=== PATIENT | female | born 1990 | race African-American/Black ===

== ENCOUNTER 2020-09-10 11:17 | Outpatient (REF) | payer MEDICARE, MEDICAID, SELFPAY ==
[2020-09-10 12:56] LABS: MANUAL DIFF FLAG NO
[2020-09-10 13:01] LABS: Basophils Percent Auto 0.4 % (0-2); Eosinophils Percent Auto 0.6 % (0-4); Hematocrit 42.1 % (37-47); Hemoglobin 13.4 g/dl (12.0-16.0); Imm Gran Abs Auto 0.01 X10*3/uL (0.00-0.03); Imm Gran Pct Auto 0.2 % (0.0-0.4); Lymphocytes Absolute Auto 2.1 X10*3/uL (1.2-4.9); Mean Corpuscular HGB Conc 31.8 g/dl (31.0-35.0); Mean Corpuscular Hemoglobin 29.8 pg (27.0-33.0); Mean Corpuscular Volume 93.8 fL (80-98); Mean Platelet Volume 9.8 fL (9.4-12.3); Monocytes Absolute Auto 0.4 X10*3/uL (0.1-1.2); Monocytes Percent Auto 6.9 % (2-11); Neutrophils Absolute Auto 2.6 X10*3/uL (2.0-8.3); Neutrophils Percent Auto 50.9 % (45-73); Platelet Count 369 X10*3/uL (160-400); Red Blood Count 4.49 X10*6/uL (4.20-5.50); Red Cell Distribution Width 13.9 % (11.0-16.0); White Blood Count 5.1 X10*3/uL (4.8-10.8)
== END 2020-09-10 11:18 | disposition home or self-care (01) ==
LOC: HO.LAB 11:17
PROVIDERS: PCP Family Medicine; Visit Provider Family Medicine
DX: E34.9 Endocrine disorder, unspecified (principal)
CPT/HCPCS: 36415; 85025

== ENCOUNTER 2020-11-24 15:58 | Inpatient (IN) | payer MEDICARE, MEDICAID, SELFPAY ==
[2020-11-24 16:31] VITALS: BMI 28.8
--- NOTE | 2020-11-24 16:38 | ED_ITS ---
HPI - Psych General Chief Complaint: Psychiatric Symptoms Stated Complaint: std Time Seen by Provider: 11/24/20 16:35 Source: patient Mode of arrival: ambulatory Limitations: no limitations History of Present Illness HPI Narrative: Patient history of bipolar disorder dropped up by his friend for been delusional and paranoid tangential in conversation believes someone is talking to him and everyone he knows, talking too fast in the ER denies any psychological issues. Denies any suicidal or homicidal ideation Related Data Allergies Allergy/AdvReac Type Severity Reaction Status Date / Time iodine [IODINE] Allergy Unknown ITCHING Unverified 04/03/20 19:43 shellfish derived Allergy Unknown HIVES Unverified 04/03/20 19:43 [SHELLFISH DERIVED] tree nut [TREE NUT] Allergy Unknown DIFFICULTY Unverified 04/03/20 19:43 BREATHING DAIRY PRODUCTS Allergy Unknown STOMACH Uncoded 04/03/20 19:43 UPSET Review of Systems Review of Systems: Constitutional : No Fever, No Chills ENT/Mouth : No Ear Pain, No Nasal Congestion, No sore throat Eyes: No Eye Pain, No Swelling, No Redness Cardiovascular : No Chest Pain, No SOB Respiratory : No Cough, No Sputum, No Dyspnea Gastrointestinal : No Nausea, No Vomiting, No Diarrhea, No Hematochezia, No Me kenney Genitourinary : No Dysuria, No Urinary Frequency, No Hematuria Musculoskeletal : No Myalgias Skin : No Skin Lesions, No rash Neuro : No Weakness, No Numbness, No Paresthesias, No Dizziness, No Headache Psych : positive Anxiety, - Depression, positive SI/HI Heme/Lymph: No Lymphadenopathy Endocrine : No Polyuria, No Polydipsia PMFSH Social History Social History Alcohol intake: unknown Smoking Status: Unknown if ever smoked Use of substances other than those prescribed or required for medical reasons: Unknown Advance Directives: No Advance Directives Information Provided: No Physical Exam Vital Signs: Vital Signs: Last Vital Signs Temp 97.0 F 11/25/20 00:31 Pulse 78 11/25/20 00:31 Resp 18 11/25/20 00:31 BP 123/79 11/25/20 00:31 Pulse Ox 97 11/25/20 00:31 Body Mass Index 28.8 Appearance: Alert. Oriented X3. No acute distress. Eyes: PERRLA, No Nystagmus ENT: Pharynx normal. Oral Mucosa moist Neck: Normal inspection. Neck supple. CVS: Normal heart rate and rhythm. Pulses normal. Respiratory: No respiratory distress. Equal air entry bilateral, no wheezing/rales/rhonchi Abdomen: Soft and nontender. Bowel sounds are present, no mass palpable, no CVA tenderness Skin: Skin warm and dry. Normal skin color. Normal skin turgor. Extremities: No lower extremity edema. No calf tenderness Neuro: Oriented X 3. No motor deficit. No sensory deficit.No cerebellar signs , cranial nerves II-XII intact psych: Anxious+ denies any suicidal ideation, delusional+ paranoid+ denies hallucination at this time MDM - Psych MDM Narrative Medical decision making narrative: Patient with bipolar disorder will be seen by therapist disposition after evaluation. Patient medically cleared Lab Data Attestation: I reviewed the patient's lab results. Result diagrams: 11/24/20 16:51 11/24/20 16:51 Labs: Lab Results 11/24/20 11/24/20 11/24/20 Range/Units 16:40 16:40 16:51 WBC 5.6 (4.8-10.8) X10*3/uL RBC 4.82 (4.20-5.50) X10*6/uL Hgb 14.8 (12.0-16.0) g/dl Hct 45.6 (37-47) % MCV 94.6 (80-98) fL MCH 30.7 (27.0-33.0) pg MCHC 32.5 (31.0-35.0) g/dl RDW 12.9 (11.0-16.0) % Plt Count 324 (160-400) X10*3/uL MPV 9.6 (9.4-12.3) fL Immature Gran % (Auto) 0.2 (0.0-0.4) % Neut % (Auto) 49.5 (45-73) % Lymph % (Auto) 42.3 H (20-40) % [place] % (Auto) 7.0 (2-11) % Eos % (Auto) 0.5 (0-4) % Baso % (Auto) 0.5 (0-2) % Lymph # (Auto) 2.4 (1.2-4.9) X10*3/uL [place] # (Auto) 0.4 (0.1-1.2) X10*3/uL Eos # (Auto) 0.0 (0.0-0.4) X10*3/uL Baso # (Auto) 0.0 (0.0-0.2) X10*3/uL Abs Immat Gran (auto) 0.01 (0.00-0.03) X10*3/uL Absolute Neuts (auto) 2.8 (2.0-8.3) X10*3/uL Absolute Nucleated RBC 0.000 (0.0-0.012) X10*3/uL Nucleated RBC % (auto) 0.0 (0.0-0.2) /100WBC Sodium (135-145) mmol/L Potassium (3.3-5.1) mmol/L Chloride (96-108) mmol/L Carbon Dioxide (22-29) mmol/L Anion Gap (12-20) BUN (9-16) mg/dL Creatinine (0.5-1.4) mg/dL Estim Creat Clear Calc Estimated GFR Random Glucose (60-115) mg/dL Calcium (8.4-10.2) mg/dL Total Bilirubin (0.0-1.0) mg/dL AST (5-31) U/L ALT (0-31) U/L Alkaline Phosphatase (39-117) U/L Total Protein (6.5-8.0) g/dL Albumin (3.5-5.0) g/dL Urine Test NEGATIVE (NEGATIVE) Urine Opiates Screen Not Detected (Not Detect) Ur Barbiturates Screen Not Detected (Not Detect) Ur Phencyclidine Scrn Not Detected (Not Detect) Ur Amphetamines Screen Not Detected (Not Detect) U Benzodiazepines Scrn Not Detected (Not Detect) Urine Cocaine Screen Not Detected (Not Detect) U Marijuana (THC) Screen Not Detected (Not Detect) 11/24/20 Range/Units 16:51 WBC (4.8-10.8) X10*3/uL RBC (4.20-5.50) X10*6/uL Hgb (12.0-16.0) g/dl Hct (37-47) % MCV (80-98) fL MCH (27.0-33.0) pg MCHC (31.0-35.0) g/dl RDW (11.0-16.0) % Plt Count (160-400) X10*3/uL MPV (9.4-12.3) fL Immature Gran % (Auto) (0.0-0.4) % Neut % (Auto) (45-73) % Lymph % (Auto) (20-40) % [place] % (Auto) (2-11) % Eos % (Auto) (0-4) % Baso % (Auto) (0-2) % Lymph # (Auto) (1.2-4.9) X10*3/uL [place] # (Auto) (0.1-1.2) X10*3/uL Eos # (Auto) (0.0-0.4) X10*3/uL Baso # (Auto) (0.0-0.2) X10*3/uL Abs Immat Gran (auto) (0.00-0.03) X10*3/uL Absolute Neuts (auto) (2.0-8.3) X10*3/uL Absolute Nucleated RBC (0.0-0.012) X10*3/uL Nucleated RBC % (auto) (0.0-0.2) /100WBC Sodium 138 (135-145) mmol/L Potassium 5.0 (3.3-5.1) mmol/L Chloride 101 (96-108) mmol/L Carbon Dioxide 27 (22-29) mmol/L Anion Gap 15 (12-20) BUN 12 (9-16) mg/dL Creatinine 1.28 (0.5-1.4) mg/dL Estim Creat Clear Calc 74.5 Estimated GFR 49 Random Glucose 103 (60-115) mg/dL Calcium 10.1 (8.4-10.2) mg/dL Total Bilirubin 0.3 (0.0-1.0) mg/dL AST 23 (5-31) U/L ALT 20 (0-31) U/L Alkaline Phosphatase 69 (39-117) U/L Total Protein 7.9 (6.5-8.0) g/dL Albumin 4.7 (3.5-5.0) g/dL Urine Test (NEGATIVE) Urine Opiates Screen (Not Detect) Ur Barbiturates Screen (Not Detect) Ur Phencyclidine Scrn (Not Detect) Ur Amphetamines Screen (Not Detect) U Benzodiazepines Scrn (Not Detect) Urine Cocaine Screen (Not Detect) U Marijuana (THC) Screen (Not Detect)
[2020-11-24 16:53] LABS: UPreg QC Valid YES; Urine Pregnancy NEGATIVE (NEGATIVE)
[2020-11-24 17:07] LABS: Basophils Percent Auto 0.5 % (0-2); Eosinophils Percent Auto 0.5 % (0-4); Hematocrit 45.6 % (37-47); Hemoglobin 14.8 g/dl (12.0-16.0); Imm Gran Abs Auto 0.01 X10*3/uL (0.00-0.03); Imm Gran Pct Auto 0.2 % (0.0-0.4); Lymphocytes Absolute Auto 2.4 X10*3/uL (1.2-4.9); Lymphocytes Percent Auto 42.3 % (20-40); MANUAL DIFF FLAG NO; Mean Corpuscular HGB Conc 32.5 g/dl (31.0-35.0); Mean Corpuscular Hemoglobin 30.7 pg (27.0-33.0); Mean Corpuscular Volume 94.6 fL (80-98); Mean Platelet Volume 9.6 fL (9.4-12.3); Monocytes Absolute Auto 0.4 X10*3/uL (0.1-1.2); Neutrophils Absolute Auto 2.8 X10*3/uL (2.0-8.3); Neutrophils Percent Auto 49.5 % (45-73); Platelet Count 324 X10*3/uL (160-400); Red Blood Count 4.82 X10*6/uL (4.20-5.50); Red Cell Distribution Width 12.9 % (11.0-16.0); White Blood Count 5.6 X10*3/uL (4.8-10.8)
[2020-11-24 17:08] LABS: Amphetamine Screen Urine Not Detected (Not Detect); Barbiturates, Urine Not Detected (Not Detect); Benzodiazepines Screen Urine Not Detected (Not Detect); Cannabinoid Screen Urine Not Detected (Not Detect); Cocaine Screen Urine Not Detected (Not Detect); Opiate Screen Urine Not Detected (Not Detect); Phencyclidine Screen Urine Not Detected (Not Detect)
[2020-11-24 17:09] VITALS: BP 146/100; PULSE 90; RESP 18; TEMP 36.6; O2SAT 97
[2020-11-24 17:37] LABS: Alanine Aminotransferase 20 U/L (0-31); Albumin Level 4.7 g/dL (3.5-5.0); Alkaline Phosphatase 69 U/L (39-117); Anion Gap 15 (12-20); Aspartate Amino Transferase 23 U/L (5-31); Bilirubin Total 0.3 mg/dL (0.0-1.0); Blood Urea Nitrogen 12 mg/dL (9-16); Calcium 10.1 mg/dL (8.4-10.2); Carbon Dioxide 27 mmol/L (22-29); Chloride 101 mmol/L (96-108); Creatinine Clr Calc Pharmacy 74.5; Estimated Glomerular Filt Rate 49; Glucose Random 103 mg/dL (60-115); Sodium 138 mmol/L (135-145); Total Protein 7.9 g/dL (6.5-8.0)
--- NOTE | 2020-11-24 18:42 | PC.NURSE ---
Per N it will be several hours before a clinician will be out to see PT.
--- NOTE | 2020-11-24 19:05 | PC.NURSE ---
Report received. PT is using the shower. Calm and cooperative, but very talkative. PT is waiting to be seen by N.
--- NOTE | 2020-11-24 22:28 | PC.NURSE ---
PT is agitated and upset, continues to ask to go home because she has work at midnight. PT exhibiting hyperverbal speech (flight of ideas), tangential thought, and paranoid behavior (asking staff to pull up their masks, which are wearing masks properly, and put on gloves). This nurse explained to the PT that we are waiting for N to arrive for an evaluation. PT called her parents to tell them to come pick her up. Both mother and father then called the ED pod separately and spoke with this nurse. Both parents expressed concern that the PT has not been taking her meds and is not acting like her normal self.
--- NOTE | 2020-11-25 00:26 | PC.NURSE ---
PT contacts: Mother - Yamile Julius - [phone] Father - Hong Julius - [phone]
[2020-11-25 00:31] VITALS: BP 123/79; PULSE 78; RESP 18; TEMP 36.1; O2SAT 97
--- NOTE | 2020-11-25 01:50 | PC.NURSE ---
PT is sitting across from the nurse's station self dialoguing for the past two hours. PT cycling through emotions, laughing with self one moment and then yelling and upset with staff moments later. PT has not been aggressive or threatening to staff. Awaiting evaluation with [facility].
--- NOTE | 2020-11-25 06:52 | PC.NURSE ---
received report from overnight nurse, patient remains asleep at present with even unlabored breaths appears in no distress
--- NOTE | 2020-11-25 10:00 | PC.NURSE ---
Care team at bedside for eval.
--- NOTE | 2020-11-25 11:04 | PC.NURSE ---
spoke to clients father today phone #[phone], mothers number (t/w did not speak to) [phone]
--- NOTE | 2020-11-25 12:40 | PC.NURSE ---
PT asking how long he can take a shower for stating that last night he took a shower for 2-3 hours and then was kept here overnight and has now lost his job. PT states that due to him losing his job we are all now under surveillance and being watched. PT then talking about running milk over his body while he showers because clean living equals clean life.
--- NOTE | 2020-11-25 13:56 | PC.NURSE ---
PT appears to be responding internally, having a conversation while alone in his room.
[2020-11-25 17:00] LABS: COVID-19 Test Negative (Negative); IDNOW Serial# 9DD0AD1C
--- NOTE | 2020-11-25 17:34 | MHC.CARE ---
Pt evaluated by [facility] with plan for inpt psychiatric placement. Pt has been accepted for admission to . Admitting doctor: Brigette Room: 514-1 Transfer to unit will occur this evening.
[2020-11-25 18:00] VITALS: RESP 18
--- NOTE | 2020-11-25 19:03 | PC.NURSE ---
Report received. PT talking to father on the phone. Agitated speech but PT is still calm and coopertive. PT is inpatient bed search.
--- NOTE | 2020-11-25 21:06 | PC.ADMIT ---
Pt is a 30 year old transgender male (female to male) that hoes by he/him pronouns. Pt was brought into [facility] [place] because of being disorganized and manic. Has been off medication for 6 months and states that I just want to be holistic, my transitioning meds I don't want it to be interfered with...It's not like I'm opposed to taking medications I just want to get the perfect one and then go so that I can help my friend out...I can go to [facility] too, those are my goals. He is very tangential and disorganized pressured speech. Presents as manic, on 1:1 meeting it was difficult to get pt stay on track -loose associations. T/W asked pt if experiencing AH and did not respond because he could not focus on the question. Per eval, he endorsed AH and has been paranoid due to putting himself in danger in the community. Currently, not on any medications. Diagnosis at refferal: Bipolar disorder, manic, severe, with psychotic features. Tox screen negative. COVID negative. Section 12B. Medications being ordered and obtained by Sanjuana Ha NP. Placed on 15 minute checks.
[2020-11-25] MEDS: traZODone HCL 50 MG TABLET PO (23:47)
[2020-11-25] MEDS: LORazepam 1 MG TABLET PO (23:47)
[2020-11-25] MEDS: diphenhydrAMINE HCL 25 MG TABLET 50 MG PO (23:47)
[2020-11-26 09:17] LABS: Cholesterol 144 mg/dL; HDL Cholesterol 33 mg/dL; LDL Cholesterol Calculated 103 mg/dl; Triglycerides 44 mg/dL
[2020-11-26 09:20] LABS: Estimated Average Glucose 105 mg/dL; Hemoglobin A1c % 5.3 %
[2020-11-26 09:38] LABS: Thyroid Stimulating Hormone 1.27 uIU/mL (0.32-4.0)
[2020-11-26 09:55] LABS: Folate 11.7 ng/mL (> or = 4.0); Vitamin B12 533 pg/mL (200-900)
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
[2020-11-26] MEDS: Acetaminophen 325 MG TABLET 650 MG PO (13:27)
[2020-11-27] MEDS: LORazepam 1 MG TABLET PO (00:04)
[2020-11-27] MEDS: diphenhydrAMINE HCL 25 MG TABLET 50 MG PO (00:04)
[2020-11-27] MEDS: traZODone HCL 50 MG TABLET PO (01:07)
[2020-11-27 07:00] VITALS: BMI 31.1
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
[2020-11-27 09:54] VITALS: BP 97/54; PULSE 57; RESP 14; TEMP 36.3; O2SAT 98
[2020-11-27] MEDS: Acetaminophen 325 MG TABLET 650 MG PO (10:09)
[2020-11-27 18:00] VITALS: BP 128/69; PULSE 93; RESP 18; TEMP 36.5
[2020-11-28] MEDS: traZODone HCL 50 MG TABLET PO ×2 (03:00→23:04)
[2020-11-28] MEDS: diphenhydrAMINE HCL 25 MG TABLET 50 MG PO ×2 (03:00→23:03)
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
[2020-11-28 12:11] VITALS: BP 127/74; PULSE 72; RESP 16; TEMP 37.2; O2SAT 97
[2020-11-28] MEDS: ARIPiprazole 5 MG TABLET PO (16:58)
[2020-11-29 06:00] VITALS: BP 133/59; PULSE 71; RESP 16; TEMP 36.3; O2SAT 97
[2020-11-29] MEDS: ARIPiprazole 10 MG TABLET PO (10:54)
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
[2020-11-29 18:24] VITALS: BP 134/79; PULSE 97; RESP 16; TEMP 36.4; O2SAT 97
[2020-11-29] MEDS: Acetaminophen 325 MG TABLET 650 MG PO (18:36)
[2020-11-29] MEDS: LORazepam 1 MG TABLET PO ×2 (19:38→22:54)
[2020-11-29] MEDS: traZODone HCL 50 MG TABLET PO (22:54)
[2020-11-29] MEDS: diphenhydrAMINE HCL 25 MG TABLET 50 MG PO (22:54)
[2020-11-30] MEDS: ARIPiprazole 10 MG TABLET PO (09:49)
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
[2020-11-30 17:32] VITALS: BP 142/74; PULSE 88; RESP 14; TEMP 36.5; O2SAT 98
[2020-11-30] MEDS: LORazepam 1 MG TABLET PO (22:30)
[2020-11-30] MEDS: diphenhydrAMINE HCL 25 MG TABLET 50 MG PO (22:30)
[2020-12-01] MEDS: ARIPiprazole 10 MG TABLET PO (08:58)
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
[2020-12-01] MEDS: LORazepam 1 MG TABLET PO (13:20)
[2020-12-01] MEDS: Magnesium Hydrox/Alum Hydrox 30 ML ORAL.SUSP PO (13:20)
[2020-12-01 20:10] VITALS: BP 139/63; PULSE 115; RESP 18; O2SAT 97
[2020-12-01] MEDS: diphenhydrAMINE HCL 25 MG TABLET 50 MG PO (20:31)
[2020-12-01] MEDS: traZODone HCL 50 MG TABLET PO (20:32)
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
[2020-12-02] MEDS: ARIPiprazole 10 MG TABLET PO (09:25)
[2020-12-02 18:00] VITALS: BP 129/68; PULSE 81; RESP 18; TEMP 37; O2SAT 98
[2020-12-03] MEDS: LORazepam 1 MG TABLET PO (00:23)
[2020-12-03] MEDS: diphenhydrAMINE HCL 25 MG TABLET 50 MG PO ×2 (00:24→22:07)
[2020-12-03] MEDS: traZODone HCL 50 MG TABLET PO ×2 (00:24→22:07)
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
[2020-12-03] MEDS: ARIPiprazole 20 MG TABLET PO (09:32)
[2020-12-03] MEDS: Magnesium Hydrox/Alum Hydrox 30 ML ORAL.SUSP PO (09:51)
[2020-12-03 18:00] VITALS: BP 118/65; PULSE 76; RESP 18; TEMP 36.6; O2SAT 97
[2020-12-04] MEDS: ARIPiprazole 20 MG TABLET PO (09:14)
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
[2020-12-04 14:00] VITALS: BMI 31.6
[2020-12-04 18:00] VITALS: BP 134/74; PULSE 98; TEMP 36.7
[2020-12-04] MEDS: traZODone HCL 50 MG TABLET PO (21:45)
[2020-12-04] MEDS: diphenhydrAMINE HCL 25 MG TABLET 50 MG PO (21:45)
[2020-12-05] MEDS: traZODone HCL 50 MG TABLET PO ×2 (02:13→22:26)
[2020-12-05 06:00] VITALS: BP 94/50; PULSE 72; RESP 18; TEMP 36.4; O2SAT 97
[2020-12-05] MEDS: ARIPiprazole 20 MG TABLET PO (09:09)
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
[2020-12-05 18:00] VITALS: RESP 18
[2020-12-05] MEDS: diphenhydrAMINE HCL 25 MG TABLET 50 MG PO (22:26)
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
[2020-12-06] MEDS: ARIPiprazole 20 MG TABLET PO (08:55)
[2020-12-06 20:35] VITALS: BP 121/70; PULSE 91; TEMP 36.7; O2SAT 97
[2020-12-06] MEDS: traZODone HCL 50 MG TABLET PO (21:26)
[2020-12-07] MEDS: ARIPiprazole 20 MG TABLET PO (09:06)
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
[2020-12-07 18:00] VITALS: BP 135/78; PULSE 93; TEMP 36.7; O2SAT 97
[2020-12-07] MEDS: diphenhydrAMINE HCL 25 MG TABLET 50 MG PO (23:30)
[2020-12-07] MEDS: traZODone HCL 50 MG TABLET PO (23:31)
[2020-12-08] MEDS: traZODone HCL 50 MG TABLET PO ×2 (01:30→22:49)
[2020-12-08] MEDS: ARIPiprazole 20 MG TABLET PO (09:05)
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
[2020-12-08 19:25] VITALS: BP 127/67; PULSE 102; TEMP 36.2
[2020-12-08] MEDS: diphenhydrAMINE HCL 25 MG TABLET 50 MG PO (22:49)
[2020-12-09 06:00] VITALS: BP 117/53; PULSE 70; RESP 18; TEMP 36.7; O2SAT 100
[2020-12-09] MEDS: ARIPiprazole 20 MG TABLET PO (08:44)
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
[2020-12-09] MEDS: diphenhydrAMINE HCL 25 MG TABLET 50 MG PO (20:33)
[2020-12-09] MEDS: traZODone HCL 50 MG TABLET PO (20:34)
[2020-12-10 07:01] VITALS: BP 121/78; PULSE 67; RESP 14; TEMP 36.1; O2SAT 97
[2020-12-10] MEDS: ARIPiprazole 20 MG TABLET PO (09:34)
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
[2020-12-10 18:00] VITALS: BP 130/76; PULSE 101; TEMP 36.4
[2020-12-10] MEDS: diphenhydrAMINE HCL 25 MG TABLET 50 MG PO (20:59)
[2020-12-10] MEDS: traZODone HCL 50 MG TABLET PO (20:59)
[2020-12-11] MEDS: traZODone HCL 50 MG TABLET PO (01:45)
[2020-12-11 06:00] VITALS: BP 108/57; PULSE 63; RESP 16; TEMP 36.2; O2SAT 99
[2020-12-11] MEDS: ARIPiprazole 20 MG TABLET PO (08:46)
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
== END 2020-12-11 13:46 | disposition home or self-care (01) | DRG 885 ==
LOC: HO.ED 16:30 → HO.PM5 11-25 19:47
PROVIDERS: Physician Assistant; Admitting Provider Social Worker; Emergency Provider Internal Medicine; PCP Family Medicine; Visit Provider Psychiatry & Neurology Psychiatry
DX: F31.12 Bipolar disorder, current episode manic without psychotic features, moderate (principal); F43.12 Post-traumatic stress disorder, chronic; F17.210 Nicotine dependence, cigarettes, uncomplicated; F64.0 Transsexualism; Z71.6 Tobacco abuse counseling; Z20.822 Contact with and (suspected) exposure to COVID-19; Z79.899 Other long term (current) drug therapy
CPT/HCPCS: 36415; 80053; 80061; 80307; 81025; 82607; 82746; 83036; 84443; 85025; 87635; 99285; J0401; Q0163

== ENCOUNTER 2021-06-16 12:37 | Outpatient (REF) | payer MEDICARE, SELFPAY ==
[2021-06-16 13:37] LABS: Hematocrit 43.9 % (37.0-47.0); Hemoglobin 14.4 g/dl (12.0-16.0); Mean Corpuscular HGB Conc 32.8 g/dl (31.0-35.0); Mean Corpuscular Hemoglobin 31.6 pg (27.0-33.0); Mean Corpuscular Volume 96.3 fL (80.0-98.0); Mean Platelet Volume 9.7 fL (9.4-12.3); Platelet Count 319 X10*3/uL (160-400); Red Blood Count 4.56 X10*6/uL (4.20-5.50); Red Cell Distribution Width 13.5 % (11.0-16.0); White Blood Count 6.1 X10*3/uL (4.8-10.8)
[2021-06-16 16:03] LABS: CT PCR NOT DETECTED (Not Detect.); NG PCR NOT DETECTED (Not Detect.)
[2021-06-17 08:24] LABS: HIV AB/AG Nonreactive (Nonreactive); HIV Num 1 0.06 S/CO (0.00-0.99); Hepatitis B Surface Antigen Negative (Negative)
[2021-06-17 08:33] LABS: ~HepC Num1 0.06 S/CO (0.00-0.79); ~Hepatitis C Antibody Nonreactive (Nonreactive)
[2021-06-17 08:34] LABS: Syphilis Screen Nonreactive (Nonreactive)
[2021-06-20 08:46] LABS: Testosterone, Total 816 ng/dL (2-45)
== END 2021-06-16 12:38 | disposition home or self-care (01) ==
LOC: HO.LAB 12:37
PROVIDERS: PCP Family Medicine; Visit Provider Family Medicine
DX: Z11.4 Encounter for screening for human immunodeficiency virus [HIV] (principal); E34.9 Endocrine disorder, unspecified; Z20.2 Contact with and (suspected) exposure to infections with a predominantly sexual mode of transmission
CPT/HCPCS: 84403; 85027; 86780; 86803; 87340; 87389; 87491; 87591

== ENCOUNTER 2021-06-30 04:22 | Emergency (ER) | payer MEDICARE, SELFPAY ==
[2021-06-30 04:27] VITALS: BP 120/75; PULSE 72; RESP 20; TEMP 36.8; O2SAT 96; BMI 33.4
--- NOTE | 2021-06-30 04:54 | PC.NURSE ---
PEÑA and Covid obtained and sent.
[2021-06-30 04:59] LABS: Appearance Urine CLEAR; Color Urine YELLOW; Glucose Urine UA NEG (NEG); Leukocyte Esterase Urine 2+ (NEG); Nitrite Urine NEG (NEG); Specific Gravity - Urine 1.025 (1.005-1.025); UACC Culture Trigger YES; Urine Blood TRACE (NEG); Urine Ketones NEG (NEG); Urine Protein NEG (NEG-TRACE)
[2021-06-30 05:01] LABS: UPreg QC Valid YES; Urine Pregnancy NEGATIVE (NEGATIVE)
[2021-06-30 05:06] LABS: Bacteria Urine 2+ /LPF; Calcium Phosphate Crystals Ur 1+ /LPF; RBC Urine 0-2 /HPF (0); Squamous Epithelial Cell Urine 3+ /LPF; UACC CULT YES
[2021-06-30 05:12] LABS: COVID-19 Test Negative (Negative); IDNOW Serial# 9DD0AD1C
[2021-06-30] MEDS: cephALEXin 500 MG CAPSULE PO (05:44)
--- NOTE | 2021-06-30 05:44 | PC.NURSE ---
MD at bedside discussing results and plan for DC.
--- NOTE | 2021-06-30 05:45 | ED_ITS ---
HPI - General Adult General Chief complaint: General Medical Stated complaint: COVID test requested, lower back pain Time Seen by Provider: 06/30/21 05:34 Source: patient Mode of arrival: ambulatory History of Present Illness HPI narrative: 30-year-old female without significant past medical history presents with lower back soreness, some feelings of fatigue and is requesting COVID test. Otherwise she denies any fever, chills, nausea, vomiting, diarrhea, but has been having urinary frequency. Related Data Previous Rx's Medication Instructions Recorded aripiprazole 20 mg tablet (Abilify) 20 mg PO DAILY 10 Days #10 tab 12/11/20 aripiprazole 400 mg intramuscular 400 mg IM Q28D 28 Days #1 ea 12/11/20 suspension,extended release (Abilify Maintena) diphenhydramine HCl 25 mg tablet 50 mg PO Q8H PRN 30 Days #30 tab 12/11/20 (Allergy Relief (diphenhydramine)) testosterone cypionate 200 mg/mL 60 mg (0.3 mL) SUBCUT QWEEK 7 Days 12/11/20 intramuscular oil #0.3 ml trazodone 50 mg tablet 50 mg PO BEDTIME PRN 30 Days #30 12/11/20 tab cephalexin 500 mg capsule 500 mg PO Q12H 5 Days #10 cap 06/30/21 Allergies Allergy/AdvReac Type Severity Reaction Status Date / Time iodine [IODINE] Allergy Unknown ITCHING Unverified 06/30/21 04:52 shellfish derived Allergy Unknown HIVES Unverified 06/30/21 04:52 [SHELLFISH DERIVED] tree nut [TREE NUT] Allergy Unknown DIFFICULTY Unverified 06/30/21 04:52 BREATHING DAIRY PRODUCTS Allergy Unknown STOMACH Uncoded 06/30/21 04:52 UPSET Review of Systems Review of Systems: Pertinent positives and negatives as stated in HPI 10 point review of systems is otherwise negative. [facility] Past Medical History Source: nursing notes reviewed Medical History Bipolar disorder Chronic post-traumatic stress disorder (PTSD) Social History Social History Household Members: Family and None Housing: Apartment Do you presently have visiting nurse or other home services: No Alcohol intake: unknown Cigarettes Per Day: 4 Second Hand Smoke Exposure: Yes Substance Use Type: Marijuana service: No Physical Exam Vital Signs: Vital Signs: Last Vital Signs Temp 98.3 F 06/30/21 04:27 Pulse 72 06/30/21 04:27 Resp 20 06/30/21 04:27 BP 120/75 06/30/21 04:27 Pulse Ox 96 06/30/21 04:27 BMI result Body Mass Index 33.4 VITAL SIGNS: Reviewed. GENERAL: Well developed, well nourished, in no acute distress. HEAD: Normocephalic/atraumatic EYES: PERRLA, EOMI OROPHARYNX: no oral lesions noted, posterior pharynx clear LUNGS: Normal breath sounds. No adventitious sounds or accessory muscle use. SpO2<96> CARDIOVASCULAR: Regular rate and rhythm without noted murmurs ABDOMEN: Soft, non-tender, non-distended with bowel sounds , no CVA tenderness NEUROLOGIC: Alert and oriented x 4. Course Course Course Narrative: 30-year-old female with history and clinical presentation consistent with suspected UTI, and on review of all investigations there are no acute findings other than UTI being positive. Patient received additional antibiotics here in the emergency room and was discharged with remaining course. Medical Decision Making Lab Data Labs: Lab Results 06/30/21 06/30/21 06/30/21 Range/Units 04:52 04:52 04:52 Urine Color YELLOW Urine Appearance CLEAR Urine pH 6.0 (5.0-8.0) Ur Specific [place] 1.025 (1.005-1.025) Urine Protein NEG (NEG-TRACE) MG/DL Urine Glucose (UA) NEG (NEG) MG/DL Urine Ketones NEG (NEG) MG/DL Urine Blood TRACE (NEG) Urine Nitrite NEG (NEG) Ur Leukocyte Esterase 2+ H (NEG) Urine RBC 0-2 (0) /HPF Urine WBC 5-9 H (0-4) /HPF Ur Squamous Epith Cells 3+ /LPF Calcium Phosphate Cryst 1+ /LPF Urine Bacteria 2+ /LPF Urine Test NEGATIVE (NEGATIVE) COVID-19 (TRUDY) Negative (Negative) COVID-19 Clin Com See Note Discharge Plan Discharge Clinical Impression: UTI (urinary tract infection) Patient Disposition: Home, Self-Care Instructions: Urinary Tract Infection in Women (ED) Additional Instructions: follow-up with your primary care provider next 2-3 days. Prescriptions: New cephalexin 500 mg capsule 500 mg PO Q12H 5 Days Qty: 10 RF: 0 No Action diphenhydramine HCl [Allergy Relief(diphenhydramin)] 25 mg Tablet 50 mg PO Q8H PRN (Reason: anxiety) 30 Days Qty: 30 RF: 0 aripiprazole [Abilify] 20 mg Tablet 20 mg PO DAILY 10 Days Qty: 10 RF: 0 trazodone 50 mg Tablet 50 mg PO BEDTIME PRN (Reason: Insomnia) 30 Days Qty: 30 RF: 0 Abilify Maintena 400 mg Suspension,Extended Rel Recon 400 mg IM Q28D 28 Days Qty: 1 RF: 0 testosterone cypionate 200 mg/mL oil 60 mg subcut QWEEK 7 Days Qty: 0.3 RF: 2
== END 2021-06-30 06:01 | disposition home or self-care (01) ==
LOC: HO.ED 05:57
PROVIDERS: Emergency Provider Student in an Organized Health Care Education/Training Program
DX: N39.0 Urinary tract infection, site not specified (principal); Z20.822 Contact with and (suspected) exposure to COVID-19; M54.50 Low back pain, unspecified
CPT/HCPCS: 36415; 81001; 81025; 87086; 87635; 99283

== ENCOUNTER 2022-05-12 07:52 | Emergency (ER) | payer MEDICARE, SELFPAY ==
[2022-05-12 08:43] VITALS: BP 141/75; PULSE 64; RESP 18; TEMP 36.6; O2SAT 100; BMI 35.5
[2022-05-12 09:06] LABS: MANUAL DIFF FLAG NO
[2022-05-12 09:11] LABS: Basophils Percent Auto 0.7 % (0-2); Eosinophils Absolute Auto 0.1 X10*3/uL (0.0-0.4); Eosinophils Percent Auto 1.4 % (0-4); Hematocrit 45.5 % (37.0-47.0); Hemoglobin 14.7 g/dl (12.0-16.0); Lymphocytes Absolute Auto 1.8 X10*3/uL (1.2-4.9); Mean Corpuscular HGB Conc 32.3 g/dl (31.0-35.0); Mean Corpuscular Hemoglobin 30.7 pg (27.0-33.0); Mean Platelet Volume 9.5 fL (9.4-12.3); Monocytes Absolute Auto 0.4 X10*3/uL (0.1-1.2); Monocytes Percent Auto 8.4 % (2-11); Neutrophils Absolute Auto 2.1 x10*3/uL (2.0-8.3); Neutrophils Percent Auto 48.5 % (45-73); Platelet Count 286 X10*3/uL (160-400); Red Blood Count 4.79 X10*6/uL (4.20-5.50); Red Cell Distribution Width 12.8 % (11.0-16.0); White Blood Count 4.3 X10*3/uL (4.8-10.8)
[2022-05-12 09:22] LABS: Appearance Urine Clear; Color Urine Yellow; Glucose Urine UA Negative (Negative); Leukocyte Esterase Urine Small (1+) (Negative); Nitrite Urine Negative (Negative); Specific Gravity - Urine >= 1.030 (1.005-1.025); UMIC TRIGGER UACC YES; Urine Blood Negative (Negative); Urine Ketones 40 mg/dL (Negative); Urine Protein Trace mg/dL (Neg-Trace)
[2022-05-12 09:23] LABS: UPreg QC Valid YES; Urine Pregnancy NEGATIVE (NEGATIVE)
[2022-05-12 09:26] LABS: Alanine Aminotransferase 30 U/L (0-31); Albumin Level 4.7 g/dL (3.5-5.0); Alkaline Phosphatase 77 U/L (39-117); Anion Gap 19 (12-20); Aspartate Amino Transferase 47 U/L (5-31); Bilirubin Direct 0.3 mg/dL (0.0-0.5); Bilirubin Total 0.8 mg/dL (0.0-1.0); Blood Urea Nitrogen 14 mg/dL (9-16); Calcium 9.5 mg/dL (8.4-10.2); Carbon Dioxide 20 mmol/L (22-29); Chloride 104 mmol/L (96-108); Creatinine Clr Calc Pharmacy 84.5; Estimated Glomerular Filt Rate 55; Glucose Random 77 mg/dL (60-115); Lipase 10 U/L (8-78); Potassium 4.5 mmol/L (3.3-5.1); Sodium 138 mmol/L (135-145); Total Protein 8.2 g/dL (6.5-8.0)
[2022-05-12 09:27] LABS: Bacteria Urine Trace (None Seen); Hyaline Casts Urine 0-2 /LPF (0-2); RBC Urine 0-2 /HPF (0-2); UACC Culture Trigger YES
== END 2022-05-12 15:31 | disposition left against medical advice (07) ==
PROVIDERS: Emergency Provider Emergency Medicine; PCP Family Medicine
DX: R10.11 Right upper quadrant pain (principal); R20.0 Anesthesia of skin
CPT/HCPCS: 36415; 80048; 80076; 81001; 81025; 83690; 85025; 87086; 99282; 99283

== ENCOUNTER 2022-05-13 17:24 | Emergency (ER) | payer MEDICARE, SELFPAY ==
--- NOTE | ~2022-05-13 | XR_ITS ---
EXAMINATION: XR KUB CLINICAL INDICATION: Reason for Exam diffuse pain ?constipated COMPARISON: None TECHNIQUE: AP view of the abdomen. FINDINGS: Lines or devices: None. Nonobstructive bowel gas pattern. Mild colonic stool burden. No abnormal calcifications. XR/XR KUB IMPRESSION: * Nonobstructive bowel gas pattern. Mild colonic stool burden.
[2022-05-13 17:44] VITALS: BP 121/75; PULSE 79; RESP 16; TEMP 36.8; O2SAT 97; BMI 35.5
[2022-05-13 18:43] LABS: Basophils Percent Auto 0.4 % (0-2); Eosinophils Absolute Auto 0.1 X10*3/uL (0.0-0.4); Eosinophils Percent Auto 2.7 % (0-4); Hemoglobin 13.7 g/dl (12.0-16.0); Imm Gran Abs Auto 0.01 X10*3/uL (0.00-0.03); Imm Gran Pct Auto 0.2 % (0.0-0.4); Lymphocytes Percent Auto 41.6 % (20-40); MANUAL DIFF FLAG NO; Mean Corpuscular HGB Conc 33.4 g/dl (31.0-35.0); Mean Corpuscular Hemoglobin 31.6 pg (27.0-33.0); Mean Corpuscular Volume 94.5 fL (80.0-98.0); Mean Platelet Volume 9.6 fL (9.4-12.3); Monocytes Absolute Auto 0.3 X10*3/uL (0.1-1.2); Monocytes Percent Auto 6.4 % (2-11); Neutrophils Absolute Auto 2.4 x10*3/uL (2.0-8.3); Neutrophils Percent Auto 48.7 % (45-73); Platelet Count 304 X10*3/uL (160-400); Red Blood Count 4.34 X10*6/uL (4.20-5.50); Red Cell Distribution Width 12.5 % (11.0-16.0); White Blood Count 4.8 X10*3/uL (4.8-10.8)
[2022-05-13 18:46] LABS: Appearance Urine Clear; Color Urine Yellow; Glucose Urine UA Negative (Negative); Leukocyte Esterase Urine Small (1+) (Negative); Nitrite Urine Negative (Negative); PH 5.5 (5.0-9.0); UMIC TRIGGER UACC YES; Urine Blood Negative (Negative); Urine Ketones Negative (Negative); Urine Protein Negative (Neg-Trace)
[2022-05-13 18:47] LABS: UPreg QC Valid YES; Urine Pregnancy NEGATIVE (NEGATIVE)
[2022-05-13 18:51] LABS: Bacteria Urine None Seen (None Seen); Hyaline Casts Urine 0-2 /LPF (0-2); RBC Urine 0-2 /HPF (0-2); Squamous Epithelial Cell Urine 0-2 /HPF (0-2); UACC Culture Trigger YES
[2022-05-13 18:59] LABS: Alanine Aminotransferase 20 U/L (0-31); Alkaline Phosphatase 67 U/L (39-117); Anion Gap 16 (12-20); Aspartate Amino Transferase 24 U/L (5-31); Bilirubin Total 0.2 mg/dL (0.0-1.0); Blood Urea Nitrogen 14 mg/dL (9-16); Carbon Dioxide 23 mmol/L (22-29); Chloride 103 mmol/L (96-108); Creatinine Clr Calc Pharmacy 61.6; Estimated Glomerular Filt Rate 38; Glucose Random 103 mg/dL (60-115); Sodium 138 mmol/L (135-145)
--- OUTSIDE RECORDS SUMMARY | 2022-05-13 20:50 | XMS_ITS | Continuity of Care Document ---
:1990 Author Organization [facility] Address [address] [place] [address]- Care Team Providers Name Role Phone Fredi Hurst MD Primary Care Physician Encounter [facility] Date(s): 02/22/20 - 02/28/[address] [address]- [facility] Encounter Diagnosis Psychosis (Final) - 02/22/20 Discharge Disposition: A-D/C Home Attending Physician: Ahmet Valentine MD Admitting Physician: Ahmet Valentine MD Referring Physician: Not on Staff, Referring MD Allergies, Adverse Reactions, Alerts Substance Reaction Severity Status iodine topical Active shellfish Active Nuts Active Shrimp Active Other Food Allergy1 Active 1tree nuts and almonds Immunizations Given and Recorded Vaccine Date Status Refusal Reason influenza virus vaccine, inactivated 09/09/16 Recorded Tet/Diphth/Acel, Pertussis (oldterm)1 09/03/08 Given Human Papillomavirus Vaccine2 10/10/07 Given Human Papillomavirus Vaccine 06/09/07 Given Human Papillomavirus Vaccine3 04/07/07 Given Meningococcal Poly Vacc (oldterm) 04/07/07 Given tetanus-diphtheria toxoids (Td) 04/18/03 Given Miscellaneous Vaccine4 09/21/96 Given Miscellaneous Vaccine5 07/30/93 Given Miscellaneous Vaccine6 03/14/92 Given Miscellaneous Vaccine7 01/04/92 Given Miscellaneous Vaccine8 91 Given Measles/Mumps/Rubella Virus Vaccine 09/21/96 Given Measles/Mumps/Rubella Virus Vaccine 12/12/92 Given Diphtheria/Tet/Pertussis, Acel (oldterm) 09/21/96 Given Diphtheria/Tet/Pertussis, Acel (oldterm) 07/30/93 Given Diphtheria/Tet/Pertussis, Acel (oldterm) 03/14/92 Given Diphtheria/Tet/Pertussis, Acel (oldterm) 01/04/92 Given Diphtheria/Tet/Pertussis, Acel (oldterm) 91 Given Hepatitis B Vaccine (old term) 02/01/96 Given Hepatitis B Vaccine (old term) 09/22/94 Given Hepatitis B Vaccine (old term) 04/21/94 Given Haemophilus B Conj Vaccine (oldterm) 12/12/92 Given Haemophilus B Conj Vaccine (oldterm) 03/14/92 Given Haemophilus B Conj Vaccine (oldterm) 01/04/92 Given Haemophilus B Conj Vaccine (oldterm) 91 Given 1Admin Note: VIS 01/26/2006 [id number] Note: vis 073Admin Note: gardasil #14Admin Note: POLIO (oral)5Admin Note: POLIO (oral)6Admin Note: POLIO (oral)7 Admin Note: POLIO (oral)8Admin Note: POLIO (oral) Medications Abilify 20 mg oral tablet 1 tablet = 20 mg, By Mouth, Daily, # 30 tablet, 1 Refills, Maintenance, 05/09/19 10:40:20 EDT, Tablet Start Date: 05/09/19 Stop Date: 07/08/19 Status: OrderedColace sodium 100 mg oral capsule 100 mg, 1, capsule, By Mouth, 2 times a day, # 60 capsule, Refills 1, Tot. Refills 1, Maintenance, 05/09/19 10:38:25 EDT, Route to Pharmacy Electronically, NCPDP_ID-[id number], [facility] Start Date: 05/09/19 Stop Date: 07/08/19 Status: OrderedDepo-Provera = 400 mg, Intramuscular, 0 Refills, Maintenance, 12/26/18 23:31:15 EDT Start Date: 12/26/18 Status: Orderedlidocaine 5% topical film 1 each, Topically, Daily, apply to back and remove daily, # 30 patch, 1 Refills, Maintenance, 05/09/19 10:38:39 EDT, Patch, 1 each Topically Daily,x30 days,Instr:apply to back and remove daily Start Date: 05/09/19 Stop Date: 07/08/19 Status: Orderedlidocaine 5% topical film 1 each, Topically, Daily, apply to abdomen and remove daily, # 30 patch, 1 Refills, Maintenance, 05/09/19 10:38:43 EDT, Patch, 1 each Topically Daily,x30 days,Instr:apply to abdomen and remove daily Start Date: 05/09/19 Stop Date: 07/08/19 Status: OrderedPROzac 20 mg oral capsule 20 mg, 1, capsule, By Mouth, Daily, # 30 capsule, Refills 1, Tot. Refills 1, Maintenance, 05/09/19 10:41:31 EDT, Route to Pharmacy Electronically, NCPDP_ID- [id number], [facility] Start Date: 05/09/19 Status: OrderedtraZODone 50 mg oral tablet 50 mg, 1, tablet, By Mouth, Daily at bedtime, PRN, # 30 tablet, Refills 1, Tot. 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) Vital Signs Most recent to oldest 1 2 3 [Reference Range]: Oxygen Saturation [94-100 %] 100 % 100 % 100 % (02/28/20 2:14 PM) (02/28/20 7:01 AM) (02/27/20 9:3 2 PM) Pulse Rate [55-90 bpm] 74 bpm 60 bpm 73 bpm (02/28/20 2:14 PM) (02/28/20 7:01 AM) (02/27/20 9:3 2 PM) Blood Pressure [90-138/55-84 mm 120/89 mm Hg 105/57 mm Hg 116/76 mm Hg Hg] (02/28/20 2:14 PM) (02/28/20 7:01 AM) (02/27/20 9:3 2 PM) Respiratory Rate [16-30 br/min] 18 br/min 16 br/min 18 br/min (02/28/20 2:14 PM) (02/28/20 7:01 AM) (02/27/20 9:3 2 PM) Temperature [96.8-100.4 DegF] 98.5 DegF 98.1 DegF 98 DegF (02/28/20 2:14 PM) (02/27/20 9:32 PM) (02/27/20 3:0 5 PM) Liters per Minute 0 L/min (02/22/20 9:17 PM) Mode of Delivery (Oxygen) Room air Room air Room a ir (02/28/20 2:14 PM) (02/28/20 7:01 AM) (02/27/20 9:3 2 PM) Blood pressure sites Arm, left Arm, right Arm, right (02/28/20 2:14 PM) (02/28/20 7:01 AM) (02/27/20 9:3 2 PM) Temperature Route Oral Oral Oral (02/28/20 2:14 PM) (02/27/20 9:32 PM) (02/27/20 3:0 5 PM) Social History Social History Type Response Tobacco Use: 4 or less cigarettes(le ss than 1/4 pack)/day in last 30 days. Sex
--- OUTSIDE RECORDS SUMMARY | 2022-05-13 20:50 | XMS_ITS | Continuity of Care Document ---
:1990 Author Organization [facility] Address [address] [place] [address]- Care Team Providers Name Role Phone Not on Staff, PCP Primary Care Physician Unavailable Encounter [facility] Date(s): 09/12/20 - 09/12/[address] [address]- Discharge Disposition: A-D/C Walkout Attending Physician: Not on Staff, Attending MD Admitting Physician: Not on Staff, Admitting MD Referring Physician: Not on Staff, Referring [...] (oldterm) 91 Given 1Admin Note: VIS 01/26/2006 [id number] Note: vis 073Admin Note: gardasil #14Admin Note: [...] 05/09/19 10:38:25 EDT, Route to Pharmacy Electronically, NCPDP_ID-[id number], [facility] Start Date: 05/09/19 Stop Date: [...] 10:41:31 EDT, Route to Pharmacy Electronically, NCPDP_ID- [id number], [facility] Start Date: 05/09/19 Status: OrderedtraZODone 50 mg oral tablet 50 mg, 1, tablet, By Mouth, Daily at bedtime, PRN, # 30 tablet, Refills 1, Tot. 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 Sex
--- OUTSIDE RECORDS SUMMARY | 2022-05-13 20:50 | XMS_ITS | Continuity of Care Document ---
:1990 Author Organization [facility] Address [address] [place] [address]- Care Team Providers Name Role Phone Not on Staff, PCP Primary Care Physician Unavailable Encounter [facility] Date(s): 09/12/20 - 09/26/[address] [address]- Encounter Diagnosis Manic behavior (Final) - 09/13/20 Schizoaffective disorder (Final) - 09/13/20 Discharge Disposition: Transfer to Psych Facility Attending Physician: Cori Barros MD Admitting Physician: Cori Barros MD Referring Physician: Not on Staff, Referring [...] (oldterm) 91 Given 1Admin Note: VIS 01/26/2006 [id number] Note: vis [id number] Note: gardasil #14Admin Note: [...] 05/09/19 10:38:25 EDT, Route to Pharmacy Electronically, NCPDP_ID-[id number], [facility] Start Date: 05/09/19 Stop Date: 07/08/19 [...] 10:41:31 EDT, Route to Pharmacy Electronically, NCPDP_ID- [id number], [facility]- Start Date: 05/09/19 Status: OrderedtraZODone 50 mg oral tablet 50 mg, 1, tablet, By Mouth, Daily at bedtime, PRN, # 30 tablet, Refills 1, Tot. 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) Vital Signs Most recent to oldest 1 2 3 [Reference Range]: Oxygen Saturation [94-100 %] 100 % 99 % 97 % (09/26/20 3:20 PM) (09/26/20 7:12 AM) (09/25/20 7:0 1 AM) Pulse Rate [55-90 bpm] 97 bpm 77 bpm 94 bpm *H* (09/26/20 7:12 AM) *H* (09/26/20 3:20 PM) (09/25/20 7:01 AM) Blood Pressure [90-138/55-84 130/82 mm Hg 107/58 mm Hg 134 /61 mm Hg mm Hg] (09/26/20 3:20 PM) (09/26/20 7:12 AM) (09/25/20 7:0 1 AM) Respiratory Rate [16-30 16 br/min 16 br/min 16 br/mi n br/min] (09/26/20 3:20 PM) (09/26/20 7:12 AM) (09/25/20 7:0 1 AM) Temperature [96.8-100.4 DegF] 97.5 DegF 98.5 DegF 98 .4 DegF (09/26/20 7:12 AM) (09/25/20 7:01 AM) (09/24/20 11: 44 PM) Mode of Delivery (Oxygen) Room air Room air Room a ir (09/26/20 3:20 PM) (09/26/20 7:12 AM) (09/24/20 3:5 7 AM) Blood pressure sites Arm, right Arm, right Arm, right (09/26/20 3:20 PM) (09/26/20 7:12 AM) (09/25/20 7:0 1 AM) Temperature Route Oral Oral Oral (09/26/20 7:12 AM) (09/25/20 7:01 AM) (09/24/20 11: 44 PM) Social History Social History Type Response Tobacco Use: 4 or less cigarettes(le ss than 1/4 pack)/day in last 30 days. Sex
[2022-05-13 21:04] VITALS: BP 108/67; PULSE 61; TEMP 37.1; O2SAT 100
--- NOTE | 2022-05-13 21:58 | ED.ABDPAIN ---
HPI - Abdominal Pain General Chief Complaint: Abdominal Pain Stated Complaint: pain on side Time Seen by Provider: 05/13/22 21:21 Source: patient Mode of arrival: ambulatory History of Present Illness HPI narrative: Patient with History of bipolar disorder PTSD comes have a nonspecific diffuse abdominal pain for last few days. No nausea no vomiting no diarrhea patient feels hungry was here yesterday but not seen left without being seen labs were normal today also labs were normal denies any urinary complaints no fever no chills comfortable as such Related Data Previous Rx's Medication Instructions Recorded aripiprazole 20 mg tablet (Abilify) 20 mg PO DAILY 10 days #10 tabs 12/11/20 aripiprazole 400 mg intramuscular 400 mg IM Q28D 4 weeks #1 ea 12/11/20 suspension,extended release (Abilify Maintena) diphenhydramine HCl 25 mg tablet 50 mg PO Q8H PRN anxiety 30 days 12/11/20 (Allergy Relief (diphenhydramine)) #30 tabs testosterone cypionate 200 mg/mL 60 mg (0.3 mL) subcut QWEEK 7 days 12/11/20 intramuscular oil #0.3 mL trazodone 50 mg tablet 50 mg PO BEDTIME PRN Insomnia 30 12/11/20 days #30 tabs cephalexin 500 mg capsule 500 mg PO Q12H 5 days #10 caps 06/30/21 Allergies Allergy/AdvReac Type Severity Reaction Status Date / Time iodine [IODINE] Allergy Unknown ITCHING Verified 05/13/22 17:47 shellfish derived Allergy Unknown HIVES Verified 05/13/22 17:47 [SHELLFISH DERIVED] tree nut [TREE NUT] Allergy Unknown DIFFICULTY Verified 05/13/22 17:47 BREATHING DAIRY PRODUCTS Allergy Unknown STOMACH Uncoded 06/30/21 04:52 UPSET Review of Systems Review of Systems Yes all other systems are reviewed and are negative PMFSH Past Medical History Medical History Bipolar disorder Chronic post-traumatic stress disorder (PTSD) Social History Social History Household Members: Family and None Housing: Apartment Do you presently have visiting nurse or other home services: No Alcohol intake: unknown Cigarettes Per Day: 4 Second Hand Smoke Exposure: Yes Substance Use Type: Marijuana Advance Directives: No Advance Directives Information Provided: Yes service: No Physical Exam ED Vital Signs: Vital Signs - 24 hr 05/13/22 17:44 05/13/22 21:04 Temperature 98.2 F 98.7 F Pulse Rate 79 61 Respiratory Rate 16 Blood Pressure 121/75 108/67 Pulse Oximetry 97 100 Oxygen Delivery Method Room Air Room Air BMI result Body Mass Index 35.5 Appearance: Alert. Oriented X3. No acute distress. Eyes: No pallor in ENT: Pharynx normal. Oral Mucosa moist Neck: Normal inspection. Neck supple. CVS: Normal heart rate and rhythm. Pulses normal. Respiratory: No respiratory distress. Equal air entry bilateral, no wheezing/rales/rhonchi Abdomen: Soft , mild diffuse tenderness no focal tenderness or guarding. Bowel sounds are present, no mass palpable, no CVA tenderness Skin: Skin warm and dry. Normal skin color. Normal skin turgor. Extremities: No lower extremity edema. No calf tenderness Neuro: Oriented X 3. No motor deficit. MDM - Abdominal Pain MDM Narrative Medical decision making narrative: Patient with nonspecific abdominal pain lab workup negative not any significant discomfort will discharge patient home likely IBS Lab Data Attestation: I reviewed the patient's lab results. Result diagrams: 05/13/22 18:36 05/13/22 18:36 Labs: Lab Results 05/13/22 05/13/22 05/13/22 Range/Units 18:36 18:36 18:36 WBC 4.8 (4.8-10.8) X10*3/uL RBC 4.34 (4.20-5.50) X10*6/uL Hgb 13.7 (12.0-16.0) g/dl Hct 41.0 (37.0-47.0) % MCV 94.5 (80.0-98.0) fL MCH 31.6 (27.0-33.0) pg MCHC 33.4 (31.0-35.0) g/dl RDW 12.5 (11.0-16.0) % Plt Count 304 (160-400) X10*3/uL MPV 9.6 (9.4-12.3) fL Immature Gran % (Auto) 0.2 (0.0-0.4) % Neut % (Auto) 48.7 (45-73) % Lymph % (Auto) 41.6 H (20-40) % [place] % (Auto) 6.4 (2-11) % Eos % (Auto) 2.7 (0-4) % Baso % (Auto) 0.4 (0-2) % Lymph # (Auto) 2.0 (1.2-4.9) X10*3/uL [place] # (Auto) 0.3 (0.1-1.2) X10*3/uL Eos # (Auto) 0.1 (0.0-0.4) X10*3/uL Baso # (Auto) 0.0 (0.0-0.2) X10*3/uL Abs Immat Gran (auto) 0.01 (0.00-0.03) X10*3/uL Absolute Neuts (auto) 2.4 (2.0-8.3) x10*3/uL Absolute Nucleated RBC 0.000 (0.0-0.012) X10*3/uL Nucleated RBC % (auto) 0.0 (0.0-0.2) /100WBC Sodium 138 (135-145) mmol/L Potassium 4.0 (3.3-5.1) mmol/L Chloride 103 (96-108) mmol/L Carbon Dioxide 23 (22-29) mmol/L Anion Gap 16 (12-20) BUN 14 (9-16) mg/dL Creatinine 1.59 H (0.5-1.4) mg/dL Estim Creat Clear Calc 61.6 Estimated GFR 38 Random Glucose 103 (60-115) mg/dL Calcium 9.0 (8.4-10.2) mg/dL Total Bilirubin 0.2 (0.0-1.0) mg/dL AST 24 D (5-31) U/L ALT 20 (0-31) U/L Alkaline Phosphatase 67 (39-117) U/L Total Protein 7.0 (6.5-8.0) g/dL Albumin 4.0 (3.5-5.0) g/dL Urine Color Yellow Urine Appearance Clear Urine pH 5.5 (5.0-9.0) Ur Specific [place] 1.010 (1.005-1.025) Urine Protein Negative (Neg-Trace) mg/dL Urine Glucose (UA) Negative (Negative) mg/dL Urine Ketones Negative (Negative) mg/dL Urine Blood Negative (Negative) Urine Nitrite Negative (Negative) Ur Leukocyte Esterase Small (1+) H (Negative) Urine RBC 0-2 (0-2) /HPF Urine WBC 6-10 H (0-5) /HPF Ur Squamous Epith Cells 0-2 (0-2) /HPF Urine Bacteria None Seen (None Seen) Hyaline Casts 0-2 (0-2) /LPF Urine Test (NEGATIVE) 05/13/22 Range/Units 18:36 WBC (4.8-10.8) X10*3/uL RBC (4.20-5.50) X10*6/uL Hgb (12.0-16.0) g/dl Hct (37.0-47.0) % MCV (80.0-98.0) fL MCH (27.0-33.0) pg MCHC (31.0-35.0) g/dl RDW (11.0-16.0) % Plt Count (160-400) X10*3/uL MPV (9.4-12.3) fL Immature Gran % (Auto) (0.0-0.4) % Neut % (Auto) (45-73) % Lymph % (Auto) (20-40) % [place] % (Auto) (2-11) % Eos % (Auto) (0-4) % Baso % (Auto) (0-2) % Lymph # (Auto) (1.2-4.9) X10*3/uL [place] # (Auto) (0.1-1.2) X10*3/uL Eos # (Auto) (0.0-0.4) X10*3/uL Baso # (Auto) (0.0-0.2) X10*3/uL Abs Immat Gran (auto) (0.00-0.03) X10*3/uL Absolute Neuts (auto) (2.0-8.3) x10*3/uL Absolute Nucleated RBC (0.0-0.012) X10*3/uL Nucleated RBC % (auto) (0.0-0.2) /100WBC Sodium (135-145) mmol/L Potassium (3.3-5.1) mmol/L Chloride (96-108) mmol/L Carbon Dioxide (22-29) mmol/L Anion Gap (12-20) BUN (9-16) mg/dL Creatinine (0.5-1.4) mg/dL Estim Creat Clear Calc Estimated GFR Random Glucose (60-115) mg/dL Calcium (8.4-10.2) mg/dL Total Bilirubin (0.0-1.0) mg/dL AST (5-31) U/L ALT (0-31) U/L Alkaline Phosphatase (39-117) U/L Total Protein (6.5-8.0) g/dL Albumin (3.5-5.0) g/dL Urine Color Urine Appearance Urine pH (5.0-9.0) Ur Specific [place] (1.005-1.025) Urine Protein (Neg-Trace) mg/dL Urine Glucose (UA) (Negative) mg/dL Urine Ketones (Negative) mg/dL Urine Blood (Negative) Urine Nitrite (Negative) Ur Leukocyte Esterase (Negative) Urine RBC (0-2) /HPF Urine WBC (0-5) /HPF Ur Squamous Epith Cells (0-2) /HPF Urine Bacteria (None Seen) Hyaline Casts (0-2) /LPF Urine Test NEGATIVE (NEGATIVE) Discharge Plan Discharge Clinical Impression: Abdominal pain Patient Disposition: Home, Self-Care Instructions: Abdominal Pain (ED) Additional Instructions: Etiology of your abdominal pain is not clear Drink plenty of fluids Report to your PCP/ER if vomiting/high fever Prescriptions: No Action diphenhydramine HCl [Allergy Relief(diphenhydramin)] 25 mg Tablet 50 mg PO Q8H PRN (Reason: anxiety) 30 Days Qty: 30 0RF aripiprazole [Abilify] 20 mg Tablet 20 mg PO DAILY 10 Days Qty: 10 0RF trazodone 50 mg Tablet 50 mg PO BEDTIME PRN (Reason: Insomnia) 30 Days Qty: 30 0RF Abilify Maintena 400 mg Suspension,Extended Rel Recon 400 mg IM Q28D 28 Days Qty: 1 0RF Rx Instructions: last dose given on 12/08; next dose 01/02 testosterone cypionate 200 mg/mL oil 60 mg subcut QWEEK 7 Days Qty: 0.3 2RF Rx Instructions: next dose to be administered on 12/18/20 cephalexin 500 mg capsule 500 mg PO Q12H 5 Days Qty: 10 0RF
[2022-05-13] MEDS: Dicyclomine HCl 10 MG CAPSULE 20 MG PO (22:24)
== END 2022-05-13 22:27 | disposition home or self-care (01) ==
PROVIDERS: Emergency Provider Internal Medicine; PCP Family Medicine
DX: R10.9 Unspecified abdominal pain (principal); F43.10 Post-traumatic stress disorder, unspecified; Z79.899 Other long term (current) drug therapy
CPT/HCPCS: 36415; 74018; 80053; 81001; 81025; 85025; 99283

== ENCOUNTER 2022-05-20 21:19 | Emergency (ER) | payer MEDICARE, SELFPAY ==
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
[2022-05-20 21:26] VITALS: BP 132/69; PULSE 92; RESP 16; TEMP 37.2; O2SAT 99; BMI 35.5
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
[2022-05-20] MEDS: Ibuprofen 600 MG TABLET PO (23:59)
== END 2022-05-21 00:04 | disposition home or self-care (01) ==
PROVIDERS: Emergency Provider Internal Medicine
DX: S40.012A Contusion of left shoulder, initial encounter (principal); S80.211A Abrasion, right knee, initial encounter; Y04.2XXA Assault by strike against or bumped into by another person, initial encounter; Y93.9 Activity, unspecified; Y92.9 Unspecified place or not applicable; Y99.9 Unspecified external cause status
CPT/HCPCS: 73030; 73560; 99283

== ENCOUNTER 2022-05-24 17:39 | Emergency (ER) | payer MEDICARE, SELFPAY ==
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
[2022-05-24 18:34] VITALS: BP 117/78; PULSE 87; RESP 18; TEMP 36.7; O2SAT 98; BMI 35.5
--- NOTE | 2022-05-24 23:12 | ED.EXTPRO ---
HPI - Extremity Problem General Chief complaint: Extremity Problem Stated complaint: left arm pain seen last wk Time Seen by Provider: 05/24/22 22:54 Source: patient Mode of arrival: ambulatory Limitations: no limitations History of Present Illness HPI Narrative: Patient complaining of pain in the left shoulder feel that his popping was seen on 05/20 of a minor injury asking for oxycodone which she has finished no recent injury after last visit x-ray done on 05/20 was negative Related Data Previous Rx's Medication Instructions Recorded aripiprazole 20 mg tablet (Abilify) 20 mg PO DAILY 10 days #10 tabs 12/11/20 aripiprazole 400 mg intramuscular 400 mg IM Q28D 4 weeks #1 ea 12/11/20 suspension,extended release (Abilify Maintena) diphenhydramine HCl 25 mg tablet 50 mg PO Q8H PRN anxiety 30 days 12/11/20 (Allergy Relief (diphenhydramine)) #30 tabs testosterone cypionate 200 mg/mL 60 mg (0.3 mL) subcut QWEEK 7 days 12/11/20 intramuscular oil #0.3 mL trazodone 50 mg tablet 50 mg PO BEDTIME PRN Insomnia 30 12/11/20 days #30 tabs cephalexin 500 mg capsule 500 mg PO Q12H 5 days #10 caps 06/30/21 doxycycline hyclate 100 mg tablet 100 mg PO BID #20 tabs 05/20/22 oxycodone 5 mg tablet 5 mg PO Q6H PRN pain #20 tabs 05/20/22 oxycodone 5 mg tablet 5 mg PO Q6H PRN Pain, Moderate #20 05/24/22 tabs Allergies Allergy/AdvReac Type Severity Reaction Status Date / Time iodine [IODINE] Allergy Unknown ITCHING Verified 05/20/22 21:30 shellfish derived Allergy Unknown HIVES Verified 05/20/22 21:30 [SHELLFISH DERIVED] tree nut [TREE NUT] Allergy Unknown DIFFICULTY Verified 05/20/22 21:30 BREATHING DAIRY PRODUCTS Allergy Unknown STOMACH Uncoded 06/30/21 04:52 UPSET Review of Systems Review of Systems: Yes all other systems are reviewed and are negative PMFSH Past Medical History Medical History Bipolar disorder Chronic post-traumatic stress disorder (PTSD) Social History Social History Household Members: Family and None Housing: Apartment Do you presently have visiting nurse or other home services: No Alcohol intake: unknown Cigarettes Per Day: 4 Second Hand Smoke Exposure: Yes Substance Use Type: Marijuana Advance Directives: No Advance Directives Information Provided: No service: No Physical Exam Vital Signs: Vital Signs: Last Vital Signs Temp 98.0 F 05/24/22 18:34 Pulse 87 05/24/22 18:34 Resp 18 05/24/22 18:34 BP 117/78 05/24/22 18:34 Pulse Ox 98 05/24/22 18:34 O2 Del Method 05/24/22 18:34 BMI result Body Mass Index 35.5 Const: General: cooperative and healthy appearing Nutritional Appearance: average body habitus HEENT: Head: Yes normal to inspection, Yes normocephalic and Yes atraumatic Face and sinus: Yes normal facial exam Resp: Effort & Inspection: normal respiratory effort Auscultation: clear to auscultation bilaterally Cardio: Palpation: normal PMI Rate: regular rate Rhythm: regular rhythm Extrem: Shoulder/upper arm images: 1. Normal control good range of movement diffuse tenderness neurovascular intact MDM - Extremity (Nontraumatic) MDM Narrative Medical decision making narrative: Patient clinically has rotator cuff tendinitis but x-ray today showed ??irregularity of the inferior glenoid margin possible hairline fracture. Patient asked to wear the sling for now and see Orthopedics for further evaluation Discharge Plan Discharge Clinical Impression: Acute pain of left shoulder Patient Disposition: Home, Self-Care Instructions: Shoulder Pain (ED) Additional Instructions: Wear the sling is provided Pain medication as prescribed Follow with Orthopedics for possible hairline fracture for further review Prescriptions: New oxycodone 5 mg tablet 5 mg PO Q6H PRN (Reason: Pain, Moderate) Qty: 20 0RF Rx Instructions: Partial Fill upon patient request. No Action diphenhydramine HCl [Allergy Relief(diphenhydramin)] 25 mg Tablet 50 mg PO Q8H PRN (Reason: anxiety) 30 Days Qty: 30 0RF aripiprazole [Abilify] 20 mg Tablet 20 mg PO DAILY 10 Days Qty: 10 0RF trazodone 50 mg Tablet 50 mg PO BEDTIME PRN (Reason: Insomnia) 30 Days Qty: 30 0RF Abilify Maintena 400 mg Suspension,Extended Rel Recon 400 mg IM Q28D 28 Days Qty: 1 0RF Rx Instructions: last dose given on 12/08; next dose 01/02 testosterone cypionate 200 mg/mL oil 60 mg subcut QWEEK 7 Days Qty: 0.3 2RF Rx Instructions: next dose to be administered on 12/18/20 oxycodone 5 mg tablet 5 mg PO Q6H PRN (Reason: pain) Qty: 20 0RF Rx Instructions: Partial Fill upon patient request. doxycycline hyclate 100 mg tablet 100 mg PO BID Qty: 20 0RF cephalexin 500 mg capsule 500 mg PO Q12H 5 Days Qty: 10 0RF Referrals: Henok Garcia MD [Physician] - 1 week
[2022-05-24] MEDS: oxyCODONE HCl Immed Release 5 MG TABLET PO (23:25)
== END 2022-05-24 23:41 | disposition home or self-care (01) ==
PROVIDERS: Emergency Provider Internal Medicine; PCP Family Medicine
DX: M25.512 Pain in left shoulder (principal)
CPT/HCPCS: 73030; 99282; 99283

== ENCOUNTER 2022-06-03 11:27 | Emergency (ER) | payer MEDICARE, SELFPAY ==
--- NOTE | ~2022-06-03 | CT_ITS ---
EXAMINATION: CT SHOULDER WITHOUT CONTRAST, LEFT CLINICAL INFORMATION: Suspected fracture. COMPARISON: Left shoulder radiographs done 05/24/2022. TECHNIQUE: Contiguous axial CT images of the left shoulder were obtained without contrast. Sagittal and coronal reformats were provided and reviewed. This CT examination was performed using dose optimization techniques as appropriate, variously including the following: *Automated exposure control *Adjustment of mA and/or kV according to patient size (this includes techniques or standardized protocols for targeted exams where dose is matched to indication/reason for exam; i.e. extremities or head) *Use of iterative reconstruction technique DOSE: 408 mGy-cm FINDINGS: Acute, mildly displaced fracture at the anteroinferior aspect of the glenoid with the resultant fracture fragment measuring up to 1.9 cm in craniocaudal dimension. The fracture fragment is displaced superiorly as well as medially with cortical step-off at the articular surface measuring up to 0.7 cm in ML dimension. There are tiny loose bodies, likely indicating fracture fragments within the posterior inferior joint space measuring up to 0.3 cm. Cortical depression at the posterosuperior aspect of the humeral head measuring up to 0.9 cm in ML dimension, consistent with a Hill-Sachs deformity. Findings are consistent with prior anteroinferior humeral head dislocation. The humeral head is currently well seated within the glenoid. No concerning lytic or blastic osseous lesion. No additional fracture. Unremarkable acromioclavicular joint. No abnormal soft tissue mass or fluid collection. Hamd-nk-wofwrajg glenohumeral joint effusion. Rotator cuff tendons are grossly intact, however, evaluation significantly limited on CT examination. No left axillary lymphadenopathy. The visualized left lung is clear. CT/CT shoulder LT wo IV con IMPRESSION: Bony Bankart lesion with medial displacement of the fracture fragment measuring up to 0.7 cm in ML dimension. Tiny fracture fragments within the posteroinferior joint space as well as a jygo-ma-rwxozprh joint effusion. Hill-Sachs deformity at the posterosuperior humeral head. Findings are consistent with prior anteroinferior humeral head dislocation. Humeral head currently well seated within the glenoid.
[2022-06-03 11:45] VITALS: BP 131/78; PULSE 68; RESP 18; TEMP 36.1; O2SAT 99; BMI 35.5
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
== END 2022-06-03 14:04 | disposition home or self-care (01) ==
PROVIDERS: Emergency Provider Emergency Medicine Emergency Medical Services; PCP Family Medicine
DX: S42.292A Other displaced fracture of upper end of left humerus, initial encounter for closed fracture (principal); M79.602 Pain in left arm; Y04.8XXA Assault by other bodily force, initial encounter; Y93.9 Activity, unspecified; Y92.9 Unspecified place or not applicable; Y99.9 Unspecified external cause status
CPT/HCPCS: 73200; 99282; 99283; 99284

== ENCOUNTER → 2022-06-07 10:43 | Outpatient (BNVA) | payer MEDICARE, SELFPAY | PROVIDERS: PCP Family Medicine; Visit Provider Physician Assistant | DX: S43.492A Other sprain of left shoulder joint, initial encounter (principal) | CPT/HCPCS: 99202 ==

== ENCOUNTER 2022-06-23 12:46 | Emergency (ER) | payer MEDICARE, SELFPAY ==
[2022-06-23 13:23] VITALS: BP 112/85; PULSE 109; RESP 20; TEMP 36.4; O2SAT 99; BMI 34.5
--- NOTE | 2022-06-23 13:25 | ED.SKABFB ---
HPI - Skin/Abscess/Foreign Bdy General Chief complaint: Skin/Abscess/Foreign Body <Aggie Glez MD - Last Filed: 06/23/22 13:29> Stated complaint: Cyst R Side Pain Down to Leg <Aggie Glez MD - Last Filed: 06/23/22 13:29> Time Seen by Provider: 06/23/22 14:17 <Aggie Glez MD - Last Filed: 06/23/22 13:29> Source: patient <CAROLE Belcher - Last Filed: 06/23/22 15:06> Mode of arrival: ambulatory <CAROLE Belcher Last Filed: 06/23/22 15:06> Limitations: no limitations <CAROLE Belcher - Last Filed: 06/23/22 15:06> History of Present Illness HPI narrative: 31-year-old transgender female to male on testosterone who presents to the ER for evaluation of multiple painful, tender and draining lesions scattered all over the body this started about a week ago. They have been worsening. Patient reports that the areas started on the chest wall and were tiny pustules. Patient then developed areas on their trunk as well as the bilateral lower extremities. Patient reports significant discomfort when trying to lay down her move around. He admits to poor body hygiene. Denies any fever or chills. Denies any history of similar lesions in the past prior to starting testosterone therapy. <CAROLE Belcher - Last Filed: 06/23/22 15:06> MD complaint: abscess/boil <CAROLE Belcher - Last Filed: 06/23/22 15:06> Onset (ago): week(s) (1) <CAROLE Belcher - Last Filed: 06/23/22 15:06> Tetanus up to date: yes <CAROLE Belcher Last Filed: 06/23/22 15:06> Location: chest, back, LLE and RLE <CAROLE Belcher - Last Filed: 06/23/22 15:06> Severity: severe <CAROLE Belcher Last Filed: 06/23/22 15:06> Severity scale (1-10): 8 <CAROLE Belcher - Last Filed: 06/23/22 15:06> Quality: aching <CAROLE Belcher - Last Filed: 06/23/22 15:06> Pain Consistency: intermittent <CAROLE Belcher Last Filed: 06/23/22 15:06> Relieving factors: immobilization <CAROLE Belcher Last Filed: 06/23/22 15:06> Exacerbating factors: palpation <CAROLE Belcher Last Filed: 06/23/22 15:06> Associated symptoms: denies other symptoms <CAROLE Belcher - Last Filed: 06/23/22 15:06> Treatments prior to arrival: attempted to drain pus at home <CAROLE Belcher - Last Filed: 06/23/22 15:06> Related Data Home medications: Previous Rx's Medication Instructions Recorded aripiprazole 20 mg tablet (Abilify) 20 mg PO DAILY 10 days #10 tabs 12/11/20 aripiprazole 400 mg intramuscular 400 mg IM Q28D 4 weeks #1 ea 12/11/20 suspension,extended release (Abilify Maintena) diphenhydramine HCl 25 mg tablet 50 mg PO Q8H PRN anxiety 30 days 12/11/20 (Allergy Relief (diphenhydramine)) #30 tabs testosterone cypionate 200 mg/mL 60 mg (0.3 mL) subcut QWEEK 7 days 12/11/20 intramuscular oil #0.3 mL trazodone 50 mg tablet 50 mg PO BEDTIME PRN Insomnia 30 12/11/20 days #30 tabs cephalexin 500 mg capsule 500 mg PO Q12H 5 days #10 caps 06/30/21 doxycycline hyclate 100 mg tablet 100 mg PO BID #20 tabs 05/20/22 oxycodone 5 mg tablet 5 mg PO Q6H PRN pain #20 tabs 05/20/22 oxycodone 5 mg tablet 5 mg PO Q6H PRN Pain, Moderate #20 05/24/22 tabs oxycodone 5 mg tablet 5 mg PO Q8H PRN pain #10 tabs 06/03/22 tramadol 50 mg tablet 50 mg PO Q8H PRN pain 7 days #21 06/16/22 tabs cephalexin 500 mg capsule 500 mg PO Q6H 7 days #28 caps 06/23/22 doxycycline monohydrate 100 mg 100 mg PO BID #14 caps 06/23/22 capsule <Aggie Glez MD - Last Filed: 06/23/22 13:29> Allergies/Adverse reactions: Allergies Allergy/AdvReac Type Severity Reaction Status Date / Time iodine [IODINE] Allergy Unknown ITCHING Verified 06/07/22 10:51 shellfish derived Allergy Unknown HIVES Verified 06/07/22 10:51 [SHELLFISH DERIVED] tree nut [TREE NUT] Allergy Unknown DIFFICULTY Verified 06/07/22 10:51 BREATHING DAIRY PRODUCTS Allergy Unknown STOMACH Uncoded 06/30/21 04:52 UPSET <Aggie Glez MD - Last Filed: 06/23/22 13:29> Review of Systems Review of Systems: Constitutional: No Fever, No Chills ENT/Mouth: No sore throat, No Rhinorrhea Cardiovascular: No Chest Pain, No SOB Respiratory: No Cough, No Sputum Gastrointestinal: No Nausea, No Vomiting, No Diarrhea, No abdominal Pain Musculoskeletal: No joint pain, No Myalgias Skin: + Skin Lesions, No rash Neuro: No Weakness, No Numbness, No Dizziness, No Headache Psych: + Anxiety/Panic, No Depression Heme/Lymph: No Bruising, No Lymphadenopathy <CAROLE Belcher - Last Filed: 06/23/22 15:06> [facility] Past Medical History Medical History: Medical History Bipolar disorder Chronic post-traumatic stress disorder (PTSD) <Aggie Glez MD - Last Filed: 06/23/22 13:29> Social History Social History: Social History Household Members: Family and None Housing: Apartment Do you presently have visiting nurse or other home services: No Alcohol intake: unknown Cigarettes Per Day: 4 Second Hand Smoke Exposure: Yes Substance Use Type: Marijuana Advance Directives: No service: No <Aggie Glez MD - Last Filed: 06/23/22 13:29> Physical Exam Vital Signs: Vital Signs: Last Vital Signs Temp 97.6 F 06/23/22 13:23 Pulse 109 H 06/23/22 13:23 Resp 20 06/23/22 13:23 BP 112/85 06/23/22 13:23 Pulse Ox 99 06/23/22 13:23 O2 Del Method 06/23/22 13:23 BMI result Body Mass Index 34.5 <Aggie Glez MD - Last Filed: 06/23/22 13:29> Vital Signs: Last Vital Signs Temp 97.6 F 06/23/22 13:23 Pulse 109 H 06/23/22 13:23 Resp 20 06/23/22 13:23 BP 112/85 06/23/22 13:23 Pulse Ox 99 06/23/22 13:23 O2 Del Method 06/23/22 13:23 BMI result Body Mass Index 34.5 <CAROLE Belcher - Last Filed: 06/23/22 15:06> Appearance: Alert. Oriented X3. No acute distress. HEENT: normal inspection CVS: Normal heart rate and rhythm. Pulses normal. Respiratory: No respiratory distress. Speaks in complete sentences Skin: Skin warm and dry. Normal skin color. Normal skin turgor. No rashes. Abdomen: Extremities: Right lower leg with a 6 cm round erythematous and indurated area with pustule in the center with fluctuance and draining pus. Area is tender and indurated., left anterior chiu with a punctate pustule. Neuro: Oriented X 3. No motor deficit. No sensory deficit. <CAROLE Belcher - Last Filed: 06/23/22 15:06> Course Course Course Narrative: Patient is a 31-year-old female presents today with having multiple lesions over her body that is draining. Is tender to touch. Patient likes to be addressed as he/him. Like to be referred to as Jaime. Patient is a biological female undergoing hormone therapy to become a male. Positive history of recreation cocaine and marijuana. Patient has no history of IV drug use. Complaining of multiple lesion in his body. Most of it which was draining. Multiple lesions was evaluated. There was 1 over the right lower chest area that seems to be draining. There is 1 over the right leg also seems to be draining. Is another 1 over the left lower chest area does not seems to be draining fluctuant. Patient not on antibiotics. Will most likely need incision and drainage. No labs needed. Patient placed back in the waiting room <Aggie Glez MD - Last Filed: 06/23/22 13:29> Reevaluation(s) Reevaluation #1: 31-year-old transgender female to male presenting with multiple lesions that are draining pus, scattered all over the body. Most are consistent with folliculitis and an infected hair follicle. There is 1 larger lesion on the right lower extremity that has significant surrounding cellulitic changes and some induration. This will require antibiotics. Patient is agreeable to incision and drainage today. Tolerated procedure well. See procedure note. Patient counseled on hygiene and use of salicylic acid products. Comfortable discharge home <CAROLE Belcher - Last Filed: 06/23/22 15:06> Procedures Abscess I/D Site: abdomen and lower extremity <CAROLE Belcher - Last Filed: 06/23/22 15:06> Side (if applicable): left <CAROLE Belcher - Last Filed: 06/23/22 15:06> Local Anesthetic: lidocaine 1% <CAROLE Belcher - Last Filed: 06/23/22 15:06> Amount of anesthesia used (mL): 2 <CAROLE Belcher - Last Filed: 06/23/22 15:06> Technique: incised with blade <CAROLE Belcher - Last Filed: 06/23/22 15:06> Sent for culture/gram staining?: No <CAROLE Belcher - Last Filed: 06/23/22 15:06> Irrigation: Yes <CAROLE Belcher - Last Filed: 06/23/22 15:06> Packing used?: none <CAROLE Belcher - Last Filed: 06/23/22 15:06> Discharge Plan Discharge Clinical Impression: Cellulitis, Abscess of skin or subcutaneous tissue <Aggie Glez MD - Last Filed: 06/23/22 13:29> Patient Disposition: Home, Self-Care <Aggie Glez MD - Last Filed: 06/23/22 13:29> Instructions: Cellulitis (ED), Abscess Incision and Drainage (DC) <Aggie Glez MD - Last Filed: 06/23/22 13:29> Additional Instructions: Take the prescribed antibiotics as directed. Complete the entire course. Do not miss any doses. Use warm compresses to the areas several times per day for 10-20 minutes at a time. Recommend getting [id number]-pusplxg body wash with salicylic acid in it to help prevent infection. Recommend getting a gentle exfoliate as well to help clean way skin cells and help prevent infection. Recommend following up with your provider. If you develop new or worsening symptoms call 911 or come back to the ER for further evaluation. <Aggie Glez MD - Last Filed: 06/23/22 13:29> Prescriptions: New cephalexin 500 mg capsule 500 mg PO Q6H 7 Days Qty: 28 0RF doxycycline monohydrate 100 mg capsule 100 mg PO BID Qty: 14 0RF No Action tramadol 50 mg tablet 50 mg PO Q8H PRN (Reason: pain) 7 Days Qty: 21 0RF diphenhydramine HCl [Allergy Relief(diphenhydramin)] 25 mg Tablet 50 mg PO Q8H PRN (Reason: anxiety) 30 Days Qty: 30 0RF aripiprazole [Abilify] 20 mg Tablet 20 mg PO DAILY 10 Days Qty: 10 0RF trazodone 50 mg Tablet 50 mg PO BEDTIME PRN (Reason: Insomnia) 30 Days Qty: 30 0RF Abilify Maintena 400 mg Suspension,Extended Rel Recon 400 mg IM Q28D 28 Days Qty: 1 0RF Rx Instructions: last dose given on 12/08; next dose 01/02 testosterone cypionate 200 mg/mL oil 60 mg subcut QWEEK 7 Days Qty: 0.3 2RF Rx Instructions: next dose to be administered on 12/18/20 oxycodone 5 mg tablet 5 mg PO Q6H PRN (Reason: pain) Qty: 20 0RF Rx Instructions: Partial Fill upon patient request. doxycycline hyclate 100 mg tablet 100 mg PO BID Qty: 20 0RF oxycodone 5 mg tablet 5 mg PO Q6H PRN (Reason: Pain, Moderate) Qty: 20 0RF Rx Instructions: Partial Fill upon patient request. oxycodone 5 mg tablet 5 mg PO Q8H PRN (Reason: pain) Qty: 10 0RF Rx Instructions: Partial Fill upon patient request. cephalexin 500 mg capsule 500 mg PO Q12H 5 Days Qty: 10 0RF <Aggie Glez MD - Last Filed: 06/23/22 13:29> Interventions: ED Discharge Assessment Last Done: 06/23/22 15:01 <Aggie Glez MD - Last Filed: 06/23/22 13:29> Discharge Date/Time: 06/23/22 15:01 <Aggie Glez MD - Last Filed: 06/23/22 13:29>
== END 2022-06-23 15:01 | disposition home or self-care (01) ==
PROVIDERS: Emergency Provider Emergency Medicine Emergency Medical Services; PCP Family Medicine
DX: L02.211 Cutaneous abscess of abdominal wall (principal); L03.116 Cellulitis of left lower limb
CPT/HCPCS: 10060; 99283

== ENCOUNTER 2022-07-21 14:00 | Outpatient (RCR) | payer MEDICARE, MEDICAID, SELFPAY ==
--- NOTE | 2022-06-30 15:32 | MHC.PT.EP ---
[facility] [place] Office [place] Office [place] Office [address] Kiki Mark [address] [phone] F: [phone] F: [phone] F: [phone] F: [phone] Physical Therapy Plan of Care Date of Evaluation: Date of Surgery: N/A Diagnosis: contusion of L shoulder L bony Bankart w/ Hill Sachs lesion (RC) *he/him pronouns Assessment: pt is a 31 y/o male presenting to physical therapy w/ referring diagnosis of L shoulder contusion. Impairments include pain, decreased range of motion, decreased strength, impaired functional mobility, impaired postural awareness, and altered ambulation mechanics. pt is a good candidate for skilled PT due to age, potential remediation of impairments, typyical disease/condition progression and prognosis, comorbidities, and motivation. pt would benefit from skilled PT intervention to provide a tailored strengthening and stretching exercise program, functional training, gait training, postural re-training, neuromuscular re-education, modalities as needed for pain, equipment safety demonstration. Frequency and Duration: The patient will be seen 2x/wk for 4 wks Short Term Goals: pt will be I w/ HEP to promote self-management of condition. pt will improve L shoulder abduction by 10 degrees to promote ease w/ reaching for objects on higher shelves. pt will be I w/ shoulder precautions assessed via teachback method. Jail Goals: pt will improve L shoulder flexion and abduction strength by 1 MMT grade to promote ease in carrying 10# object. pt will demo proper lifting mechanics from floor to chest height x5 reps of 25# object to promote return to work-related tasks. pt will report a statistically significant improvement in self-reported outcome measure, SPADI, to promote return to PLOF. Treatment Plan: Modalities to reduce pain, spasms and effusion. Manual therapy to restore motion and function. Therapeutic exercise to improve strength and flexibility. Neuromuscular re-education for posture and balance. Therapeutic activities to return to functional activities of daily living. Electronically signed by: Keisha Chiang PT, DPT Please sign and return to therapist. Thank you for your referral.
--- NOTE | 2022-08-04 16:52 | MHC.PT.DC ---
[facility] [place] Office [place] Office [place] Office [address] Kiki Mark [address] [phone] F: [phone] F: [phone] F: [phone] F: [phone] Physical Therapy Discharge Report Diagnosis: contusion of L shoulder L bony Bankart w/ Hill Sachs lesion (RC) *he/him pronouns Date of Surgery: N/A Date of Evaluation: 06/30/22 Date of Discharge: 08/04/22 Treatments to Date: 4 Cancellations to Date: 3 No Shows to Date: 1 Discharge Status: Patient Elected to Stop Discharge Summary: Insurance rep notified this therapist that the patient will be having surgery soon (as noted by PT Ortho Eval booked for 08/09/22). He is discharged from this physical therapy plan of care. Electronically signed by: Keisha Chiang PT, DPT Please sign and return to therapist. Thank you for your referral.
== END 2022-08-04 16:52 | disposition home or self-care (01) ==
LOC: HO.PT 14:00
PROVIDERS: PCP Family Medicine; Visit Provider Physician Assistant
DX: S43.492D Other sprain of left shoulder joint, subsequent encounter (principal); S40.012D Contusion of left shoulder, subsequent encounter
CPT/HCPCS: 97110; 97162

== ENCOUNTER → 2022-07-22 09:44 | Outpatient (BNVA) | payer MEDICARE, MEDICAID, SELFPAY | PROVIDERS: PCP Family Medicine; Visit Provider Orthopaedic Surgery | DX: M75.82 Other shoulder lesions, left shoulder (principal) | CPT/HCPCS: 99212 ==

== ENCOUNTER 2022-08-04 07:47 | Day surgery (SDC) | payer MEDICARE, MEDICAID, SELFPAY ==
[2022-07-29 12:59] VITALS: BMI 32.3
--- NOTE | 2022-08-03 08:25 | P.CONAN_ITS ---
Documented by User: Lianna Mayes NP 08/03/22 08:57 HPI - Anesthesia Eval Consult details Narrative: 31yo for Left Shoulder Bankhart Operation Arthroscopic FTM transgender - Pronouns he/him PMFSH Active Problems Active Problems: All Active Problems (Updated 06/24/22 @ 00:01 by Layo Fabian) Bankart lesion of left shoulder (Acute) Bipolar disorder (Chronic) Chronic post-traumatic stress disorder (PTSD) (Chronic) Past Medical History Medical History Bipolar disorder Chronic post-traumatic stress disorder (PTSD) Surgical History Surgical History (Updated 07/29/22 @ 12:58 by Alyssa Vanessa RN) Hx of colonoscopy Social History Social History Household Members: Family and None Housing: Apartment Are you a primary administrator health care facility to a significant other at home: No Do you presently have visiting nurse or other home services: No Alcohol intake: unknown Patient Tobacco Use Status: Current everyday Tobacco user Tobacco use type: Cigarette Cigarettes Per Day: 4 Second Hand Smoke Exposure: Yes Use of substances other than those prescribed or required for medical reasons: Yes Substance Use Type: Marijuana Substance Use Frequency: Daily Are you DNR?: No Advance Directives: No Advance Directives Information Provided: Yes Advance Directives on File: No Recently lost weight without trying: No Eating poorly because of decreased appetite: No Nutrition Risks: No Nutritional Risk service: No Meds Allergies Allergy/AdvReac Type Severity Reaction Status Date / Time iodine [IODINE] Allergy Unknown ITCHING Verified 08/04/22 08:02 shellfish derived Allergy Unknown HIVES Verified 08/04/22 08:02 [SHELLFISH DERIVED] tree nut [TREE NUT] Allergy Unknown DIFFICULTY Verified 08/04/22 08:02 BREATHING DAIRY PRODUCTS Allergy Unknown STOMACH Uncoded 08/04/22 08:02 UPSET Exam Exam Date and Time: August 03, 2022 0825 Height,Weight and Vital Signs: Height 5 ft 6 in Weight 90.718 kg Pertinent Lab Results Pertinent Lab Results: Laboratory Tests 05/13/22 05/13/22 18:36 18:36 WBC 4.8 Hgb 13.7 Hct 41.0 Plt Count 304 Sodium 138 Potassium 4.0 Chloride 103 Carbon Dioxide 23 BUN 14 Creatinine 1.59 H Assessment and Plan Assessment Anesthesia Assessment: Chart Reviewed Documented by User: Virgilio Ribera MD 08/04/22 08:09 [facility] Past Medical History Medical History Bipolar disorder Chronic post-traumatic stress disorder (PTSD) Family History Family history of problems with anesthesia: No Surgical History Surgical History (Updated 07/29/22 @ 12:58 by Alyssa Vanessa RN) Hx of colonoscopy History of Problems with Anesthesia: No Social History Social History Household Members: Family and None Housing: Apartment Are you a primary administrator health care facility to a significant other at home: No Do you presently have visiting nurse or other home services: No Alcohol intake: unknown Patient Tobacco Use Status: Current everyday Tobacco user Tobacco use type: Cigarette Cigarettes Per Day: 4 Second Hand Smoke Exposure: Yes Use of substances other than those prescribed or required for medical reasons: Yes Substance Use Type: Marijuana Substance Use Frequency: Daily Are you DNR?: No Advance Directives: No Advance Directives Information Provided: Yes Advance Directives on File: No Recently lost weight without trying: No Eating poorly because of decreased appetite: No Nutrition Risks: No Nutritional Risk service: No Meds Allergies Allergy/AdvReac Type Severity Reaction Status Date / Time iodine [IODINE] Allergy Unknown ITCHING Verified 08/04/22 08:02 shellfish derived Allergy Unknown HIVES Verified 08/04/22 08:02 [SHELLFISH DERIVED] tree nut [TREE NUT] Allergy Unknown DIFFICULTY Verified 08/04/22 08:02 BREATHING DAIRY PRODUCTS Allergy Unknown STOMACH Uncoded 08/04/22 08:02 UPSET Exam Airway Mallampati Class: II TM Dist: >3cm Neck ROM: Full Loose/Missing/Broken Teeth: No Heart: rrr Lungs: cta Assessment and Plan Final Anesthetic Review Family History of Problems with Anesthesia: No History of Problems with Anesthesia: No NPO: Yes ASA Class: II Final Preanesthetic Review: No Changes in Pt Med Stat, Meds/Allgs Chart Reviewed, Consent Obtained/Reviewed and Anes Risks/Benef Reviewed Patient Risk: Low Procedure Risk: Intermediate Anesthetic Plan Anesthetic Plan: GA and Regional Block Disposition: Standard PACU
[2022-08-04] VITALS (7 sets, daily range): BP systolic 103–134; BP diastolic 76–93; PULSE 64–99; RESP 10–16; TEMP 36.1–36.3; O2SAT 96–100
[2022-08-04 08:10] LABS: UPreg QC Valid YES; Urine Pregnancy NEGATIVE (NEGATIVE)
[2022-08-04] MEDS: Lactated Ringers 1,000 ML 100 ML IVCONT (09:08)
--- NOTE | 2022-08-04 09:20 | MHC.SHP ---
Pre-Procedural Eval Section A Date of Service: 08/04/22 The patient is an INPATIENT: No Changes since office visit: No Cold of Flu in the past 2 weeks, No New Medical Problems, No Changes in Medication and No Patient answered all questions The History & Physical has been completed within 30 days and I have reviewed it.: Yes Section B Chief Complaint: Other sprain of left shoulder joint, initial encou Allergies: Allergies Allergy/AdvReac Type Severity Reaction Status Date / Time iodine [IODINE] Allergy Unknown ITCHING Verified 08/04/22 08:02 shellfish derived Allergy Unknown HIVES Verified 08/04/22 08:02 [SHELLFISH DERIVED] tree nut [TREE NUT] Allergy Unknown DIFFICULTY Verified 08/04/22 08:02 BREATHING DAIRY PRODUCTS Allergy Unknown STOMACH Uncoded 08/04/22 08:02 UPSET Plan I have reviewed the history and physical and performed a pertinent physical examination on my patient. No changes have occurred unless specified. Time Spent With Patient Time: Total time managing care of this patient today ____ minutes.
--- NOTE | 2022-08-04 10:54 | P.BOP_ITS ---
Brief Operative Note Date of Service: 08/04/22 Pre-op diagnosis: Left shoulder instability Procedure: Bankhart repair with capsular plication left shoulder Implants: Tyler and nephgew micro-raptor x 4 Surgeon: Henok Garcia MD Anesthesia: GLMA and regional Was an Yacht Rigger used for this Procedure?: Yes Yacht Rigger: Nydia Gallagher Estimated blood loss (mL): 10 IV fluids (mL): 750 Pathology: none sent Condition: stable Disposition: PACU
--- NOTE | 2022-09-13 17:12 | W.PM.OPN ---
Operative Note Operative Note Date of Service: 08/04/22 Narrative: Date of Service: 08/04/22 Pre-op diagnosis: Left shoulder instability Procedure: Bankhart repair with capsular plication left shoulder Implants: Tyler and nephew micro-raptor x 4 Surgeon: Henok Garcia MD Anesthesia: GLMA and regional Was an Electrocardiogram Technician used for this Procedure?: Yes Electrocardiogram Technician: Nydia Gallagher Estimated blood loss (mL): 10 IV fluids (mL): 750 Pathology: none sent Condition: stable Disposition: PACU Procedure in detail: Patient was brought to the operating room and placed the the beach chair position. All bony prominences were well padded and the limb was prepped and draped in standard sterile fashion. A time out was called to identify proper site, proper procedure and proper surgeon. IV antibiotics per weight were administered. I began by making a posterolateral stab incision with a 15 blade. A blunt trochar was placed into the glenohumeral joint and I insufflated the joint with saline and a 30 degree arthroscope was placed. I established an outside- in anterior portal just distal to the biceps tendon. I then began my inspection of the glenohumeral joint. There was G1-2 cartilage changes of the german-inferior glenoid. The subscapularis was intact and there was no under-surface RTC tearing. There was mild fraying of the biceps with associated mild degenerative tearing of the labrum superiorly. I debrided the labrum with a shaver. There was a + drive through sign with a sub acute bony bankhart and a torn anterior-inferior labrum. I debrided the anterior glenoid rim down the bleeding bone and passed a suture through the german-inferior capsule and labrum at the 7 o'clock position. I placed a 2.7 mm micro-raptor at the anterior glenoid rim and tightened the german-inferior capsule and labrum creating a nice bumper effect. I then repeated this process at 7:30, 8 and 9 o'clock positions. I was satisfied with the plication and the labral repair. There was no longer a + drive though. I then removed all instrumentation and took my final pictures. Portals were closed with nylon. Patient was placed in an abduction sling, extubated and brought to the recovery room in stable condition. There were no known complications.
== END 2022-08-04 12:37 | disposition home or self-care (01) ==
LOC: HO.SSS 07:48
PROVIDERS: Nurse Practitioner; PCP Family Medicine; Visit Provider Orthopaedic Surgery
PROC: (CPT 29806; principal; 2022-08-04 09:40)
DX: S43.492A Other sprain of left shoulder joint, initial encounter (principal); M25.512 Pain in left shoulder; M25.312 Other instability, left shoulder; X58.XXXA Exposure to other specified factors, initial encounter; Y93.9 Activity, unspecified; Y92.9 Unspecified place or not applicable; Y99.8 Other external cause status; F43.10 Post-traumatic stress disorder, unspecified; F31.9 Bipolar disorder, unspecified; Z91.041 Radiographic dye allergy status; F17.210 Nicotine dependence, cigarettes, uncomplicated
CPT/HCPCS: 29806; 81025; J0171; J0690; J1100; J1885; J2405; J2795

== ENCOUNTER 2022-08-09 08:15 | Outpatient (RCR) | payer MEDICARE, MEDICAID, SELFPAY | END 2022-08-09 10:49 | disposition home or self-care (01) | LOC: HO.PT 08:15 | PROVIDERS: Visit Provider Physician Assistant | DX: S40.012D Contusion of left shoulder, subsequent encounter (principal); S43.492D Other sprain of left shoulder joint, subsequent encounter ==

== ENCOUNTER → 2022-08-11 13:24 | Outpatient (BNVA) | payer MEDICARE, MEDICAID, SELFPAY | PROVIDERS: PCP Family Medicine; Visit Provider Physician Assistant | DX: Z13.89 Encounter for screening for other disorder (principal) ==

== ENCOUNTER → 2022-09-13 08:58 | Outpatient (BNVA) | payer MEDICARE, MEDICAID, SELFPAY | PROVIDERS: PCP Family Medicine; Visit Provider Physician Assistant | DX: Z13.89 Encounter for screening for other disorder (principal) ==

== ENCOUNTER 2022-10-21 13:00 | Outpatient (RCR) | payer MEDICARE, MEDICAID, SELFPAY ==
--- NOTE | 2022-08-31 11:52 | MHC.PT.EP ---
[facility] [place] Office [place] Office [place] Office [address] Kiki Mark [address] [phone] F: [phone] F: [phone] F: [phone] F: [phone] Physical Therapy Plan of Care Date of Evaluation: Date of Surgery: 08/04/22 Diagnosis: POST-OP ARTHROSCOPIC LEFT SHOULDER BANKART REPAIR WITH CAPSULAR PLICATION Assessment: 31 YO BIO-SEX FEMALE WHO IDENTIFIES A MALE (HE/HIM) REF TO PT POST-OP ARTHROSCOPIC Lt SH BANKART REPAIR W CAPSULAR PLICATION ON 08/04/22. 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 Pt WAS DISCHARGED HOME W A LEFT SH IMMOBILIZER- HE NOTES HE HAS NOT BEEN WEARING IT AT NIGHT AND DEMON ACTIVE USE OF HIS LEFT UE PRIOR TO INITIAITION OF PT EVAL. Pt HAS BEEN EDUC RE PROTOCOL AND CURRENT POST-OP PRECAUTIONS / RESTRICTIONS. Pt HAS DECR POSTURAL AWARENESS, LIMITED ROM Lt SH, MODIFIED ADLs, POST RC/ SCAP MM WEAKNESS/ DECR PROPRIOCEPTION, AND INTERMITTENT PAIN IN Lt ANT SH. Pt IS A GOOD CANDIDATE FOR SKILLED PT TO GUIDE HIM ALONG HIS POST-OP COURSE, REINFORCE PRECAUTIONS/ RESTRICTIONS, ADDRESS PAIN MGMT, AND PER PROTOCOL INCR ROM AND GRADUALLY STRENGTH ONCE APPROPRIATE.. Frequency and Duration: The patient will be seen 2 x WK x 10 WKS Short Term Goals: *RE-EDUC Pt RE POST OP REPAIR PROTOCOL/ RESTRICTIONS/ PRECAUTIONS TO PROTECT THE ANATOMIC REPAIR AND IMPROVE Pt CARRYOVER *DECR Lt SH PATEL TO 2-09/24 *GRADUALLY INCREASE AAROM/ PROM Lt SH PER PROTOCOL *IMPROVE POSTURAL AWRENESS, STABILITY AND PROPRIOCEPTION IN LEFT SH COMPLEX Assistant Track Coach Goals: *Pt INDEP W PROGR HEP AND SELF-SX MGMT *Pt'S LEFT SH STRENGTH AND AROM WFL / ACCEPTABLE RANGE FOR FUNCTIONAL ACTIVITIES *Pt RESUME REG ADLs/ RTW-> IMPROVE SPADI SCORE (AT EVAL 88/130) Treatment Plan: Modalities to reduce pain, spasms and effusion. Manual therapy to restore motion and function. Therapeutic exercise to improve strength and flexibility. Neuromuscular re-education for posture and balance. Therapeutic activities to return to functional activities of daily living. Electronically signed by: JERMAN PIRES PT Please sign and return to therapist. Thank you for your referral.
--- NOTE | 2022-11-18 11:12 | MHC.PT.DC ---
[facility] [place] Office [place] Office [place] Office [address] Kiki Mark [address] [facility] [phone] F: [phone] F: [phone] F: [phone] F: [phone] Physical Therapy Discharge Report Diagnosis: POST-OP ARTHROSCOPIC LEFT SHOULDER BANKART REPAIR WITH CAPSULAR PLICATION Date of Surgery: 08/04/22 Date of Evaluation: 08/31/22 Date of Discharge: 11/18/22 Treatments to Date: 11 Cancellations to Date: 5 No Shows to Date: 2 Discharge Status: Patient Elected to Stop Recommend MD Follow-up Visit Non-compliance Discharge Summary: THE Pt DID NOT MEET HIS PT POST-OP GOALS DUE TO POOR ATTENDANCE AND DECREASED COMPLIANCY W HEP AND POST OP RC PRECAUTIONS. PLEASE CONSIDER THE PATIENT'S WILLINGNESS TO COMPLY WITH PT'S RECOMMENDATIONS AND ATTENDANCE POLICY PRIOR TO SUBMITTING A NEW REFERRAL. Electronically signed by: JERMAN PIRESPT Please sign and return to therapist. Thank you for your referral.
== END 2023-01-21 12:45 | disposition home or self-care (01) ==
LOC: HO.PT 13:00
PROVIDERS: PCP Family Medicine; Visit Provider Physician Assistant
DX: S43.492D Other sprain of left shoulder joint, subsequent encounter (principal)
CPT/HCPCS: 97110; 97140; 97162; 97530

== ENCOUNTER 2022-11-11 18:39 | Inpatient (IN) | payer MEDICARE, MEDICAID, SELFPAY ==
[2022-11-11 19:00] VITALS: RESP 20
[2022-11-11] MEDS: Haloperidol Lactate 5 MG/ML VIAL IM (19:00)
[2022-11-11] MEDS: LORazepam 2 MG/ML VIAL IM (19:00)
[2022-11-11] MEDS: diphenhydrAMINE HCL 50 MG/ML VIAL IM (19:00)
[2022-11-11 19:04] VITALS: BMI 29.2
--- NOTE | 2022-11-11 19:07 | MHC.CARE ---
CARE Team received a call from [facility] reporting that pt is a section 12 bedsearch. Pt is trans female to male. Dx bipolar 1, has not been medication compliant, manic, paranoid, delusional and HI to kill mother.
[2022-11-11 19:15] VITALS: BP 112/69; PULSE 92; RESP 18; TEMP 36.9; O2SAT 97
[2022-11-11 19:30] VITALS: RESP 18
--- NOTE | 2022-11-11 19:42 | ED_ITS ---
HPI - Psych General Chief Complaint: Psychiatric Symptoms Stated Complaint: SI Time Seen by Provider: 11/11/22 19:19 Source: patient Mode of arrival: ambulatory Limitations: no limitations History of Present Illness HPI Narrative: Patient comes to the emergency room via EMS and accompanied by police department. Patient is a 32-year-old female transitioning to male, came from the [facility] clinic. According to EMS, patient made HI statements specifically towards his mother. Seems that at a clinic patient became violent, police department had to be called in the Section 12 the patient and brought her to the emergency room. Related Data Previous Rx's Medication Instructions Recorded diphenhydramine HCl 25 mg tablet 50 mg PO Q8H PRN anxiety 30 days 12/11/20 (Allergy Relief (diphenhydramine)) #30 tabs testosterone cypionate 200 mg/mL 60 mg (0.3 mL) subcut QWEEK 7 days 12/11/20 intramuscular oil #0.3 mL oxycodone-acetaminophen 5 mg-325 1 tab PO ONCE PRN pain (scale 09/13/22 mg tablet (Percocet) score 4-6) 7 days #7 tabs Allergies Allergy/AdvReac Type Severity Reaction Status Date / Time iodine [IODINE] Allergy Unknown ITCHING Verified 09/13/22 09:27 shellfish derived Allergy Unknown HIVES Verified 09/13/22 09:27 [SHELLFISH DERIVED] tree nut [TREE NUT] Allergy Unknown DIFFICULTY Verified 09/13/22 09:27 BREATHING DAIRY PRODUCTS Allergy Unknown STOMACH Uncoded 09/13/22 09:27 UPSET Review of Systems Review of Systems: Yes Unobtainable due to mental status PMFSH Past Medical History Medical History Bipolar disorder Chronic post-traumatic stress disorder (PTSD) Surgical History Hx of colonoscopy Social History Social History Household Members: Family and None Housing: Apartment Are you a primary intensive care nurse to a significant other at home: No Do you presently have visiting nurse or other home services: No Alcohol intake: unknown Patient Tobacco Use Status: Current everyday Tobacco user Tobacco use type: Cigarette Cigarettes Per Day: 4 Second Hand Smoke Exposure: Yes Substance Use Type: Marijuana Advance Directives: No Advance Directives Information Provided: No service: No Physical Exam Vital Signs: Vital Signs: Last Vital Signs Temp 98.4 F 11/11/22 19:15 Pulse 92 11/11/22 19:15 Resp 18 11/11/22 19:15 BP 112/69 11/11/22 19:15 Pulse Ox 97 11/11/22 19:15 O2 Del Method Room Air 11/11/22 19:15 BMI result Body Mass Index 29.2 Const: Other: Appearance: Alert. Oriented X3. Combative, unable to be redirected by staff and security Eyes: Pupils equal, round and reactive to light. ENT: Pharynx normal. Neck: Normal inspection. Neck supple. No lymph nodes noted. No crepitus CVS: Normal heart rate and rhythm. Pulses normal. Normal S1 and S2 Respiratory: No respiratory distress. Breath sounds normal. No Wheezing. No rales Abdomen: Soft and nontender. No rigidity. No distention. Skin: Skin warm and dry. Normal skin color. Normal skin turgor. Extremities: No lower extremity edema. No Lacerations. No Rash Neuro: No motor deficit. No sensory deficit. Moving all extremities. No slurred speech. CN 2 through 12 grossly intact Psych: Agitated, combative Course Course Course Narrative: -patient had to be physically and chemically restrained. Patient received 2 mg of Ativan IM, 5 mg of Haldol, 50 mg of Benadry -care team consult pending. Per patient's nurse, seems the patient is already a bed search -physician observation started at 21:20 Medications Administered Discontinued Medications Generic Name Dose Route Start Last Admin Trade Name Janet PRN Reason Stop Dose Admin Diphenhydramine HCl 50 mg 11/11/22 19:21 11/11/22 19:00 Diphenhydramine Hcl 50 Mg/Ml Vial IM 11/11/22 19:22 50 mg ONCE ONE Administration Haloperidol Lactate 5 mg 11/11/22 19:21 11/11/22 19:00 Haloperidol Lactate 5 Mg/Ml Vial IM 11/11/22 19:22 5 mg STAT STA Administration Lorazepam 2 mg 11/11/22 19:21 11/11/22 19:00 Lorazepam 2 Mg/Ml Vial IM 11/11/22 19:22 2 mg STAT STA Administration Medical Decision Making Lab Data 11/11/22 20:34 11/11/22 20:34 Labs: Lab Results 11/11/22 11/11/22 Range/Units 19:58 20:34 Sodium 140 (135-145) mmol/L Potassium 3.6 (3.3-5.1) mmol/L Chloride 104 (96-108) mmol/L Carbon Dioxide 23 (22-29) mmol/L Anion Gap 17 (12-20) BUN 12 (9-16) mg/dL Creatinine 1.15 (0.5-1.4) mg/dL Estim Creat Clear Calc 66.0 Estimated GFR 55 Random Glucose 87 (60-115) mg/dL Calcium 9.3 (8.4-10.2) mg/dL Total Bilirubin 0.5 (0.0-1.0) mg/dL AST 26 (5-31) U/L ALT 19 (0-31) U/L Alkaline Phosphatase 74 (39-117) U/L Total Protein 6.9 (6.5-8.0) g/dL Albumin 4.0 (3.5-5.0) g/dL Ethyl Alcohol < 10 mg/dL COVID-19 (TRUDY) Negative (Negative) COVID-19 Clin Com See Note Discharge Plan Discharge Clinical Impression: Bipolar disorder, Chronic post-traumatic stress disorder (PTSD), Homicidal ideation Patient Disposition: Still a Patient Prescriptions: No Action diphenhydramine HCl [Allergy Relief(diphenhydramin)] 25 mg Tablet 50 mg PO Q8H PRN (Reason: anxiety) 30 Days Qty: 30 0RF testosterone cypionate 200 mg/mL oil 60 mg subcut QWEEK 7 Days Qty: 0.3 2RF Rx Instructions: next dose to be administered on 12/18/20 oxycodone-acetaminophen [Percocet] 5-325 mg tablet 1 tab PO ONCE PRN (Reason: pain (scale score 4-6)) 7 Days Qty: 7 0RF Rx Instructions: Partial Fill upon patient request.
[2022-11-11 19:45] VITALS: RESP 18
[2022-11-11 20:00] VITALS: RESP 17
[2022-11-11 20:54] LABS: COVID-19 Test Negative (Negative); IDNOW Serial# BCCEAD1C
[2022-11-11 21:00] LABS: Alanine Aminotransferase 19 U/L (0-31); Alkaline Phosphatase 74 U/L (39-117); Anion Gap 17 (12-20); Aspartate Amino Transferase 26 U/L (5-31); Bilirubin Total 0.5 mg/dL (0.0-1.0); Blood Urea Nitrogen 12 mg/dL (9-16); Calcium 9.3 mg/dL (8.4-10.2); Carbon Dioxide 23 mmol/L (22-29); Chloride 104 mmol/L (96-108); Estimated Glomerular Filt Rate 55; Ethanol < 10 mg/dL; Glucose Random 87 mg/dL (60-115); Potassium 3.6 mmol/L (3.3-5.1); Sodium 140 mmol/L (135-145); Total Protein 6.9 g/dL (6.5-8.0)
--- NOTE | 2022-11-11 21:44 | PC.NURSE ---
Patient at the time of arrival severely agitated, refused to comply with exchange operator, refused to handover belonging for inventory, when attempted to redirect made assaultive gesture and threatening to get physical, patient is bipolar off her medication for years with dysregulated behavior, patient was sent here by [facility] on section 12 with disposition of inpatient bed search, when approach again patient yelling and screaming triggering co-patients and was combative, provider ordered restraint both physical and chemical, patient was administered with Haldol 5 mg IM, Ativan 2 mg IM, and Benadryl 50 mg IM as ordered at 1900, physical restraint discontinued at 1999, ROM assessed/intact without any deficit, VSS, will continue to monitor.
[2022-11-12 06:34] VITALS: BP 104/51; PULSE 60; RESP 17; TEMP 36.7; O2SAT 98
--- NOTE | 2022-11-12 09:27 | PC.NURSE ---
[facility] in with Pt denying SI,HI, AH, VH, some delusions.
--- NOTE | 2022-11-12 09:49 | PC.NURSE ---
Pt Father called. Pt notified. Pt ate Breakfast. In to shower. No dangerous behaviors noted at this time.
--- NOTE | 2022-11-12 10:04 | ECG_ITS ---
Test Reason : QT CHECK Blood Pressure : / mmHG Vent. Rate : 000 BPM Atrial Rate : 000 BPM P-R Int : 000 ms QRS Dur : 000 ms QT Int : 000 ms P-R-T Axes : 000 000 000 degrees QTc Int : 000 ms No QRS complexes found, no ECG analysis possible When compared with ECG of 14-FEB-2019 15:57, Current undetermined rhythm precludes rhythm comparison, needs review Referred By: Ori Murillo Electronically Signed By:
[2022-11-12 10:16] LABS: UPreg QC Valid YES; Urine Pregnancy NEGATIVE (NEGATIVE)
[2022-11-12 10:16] LABS: Appearance Urine Clear; Color Urine Yellow; Glucose Urine UA Negative (Negative); Leukocyte Esterase Urine Trace (Negative); Nitrite Urine Negative (Negative); PH 5.5 (5.0-9.0); Specific Gravity - Urine 1.015 (1.005-1.025); UMIC TRIGGER UA YES; Urine Blood Negative (Negative); Urine Ketones Trace mg/dL (Negative); Urine Protein Negative (Neg-Trace)
[2022-11-12 10:20] LABS: Bacteria Urine None Seen (None Seen); Hyaline Casts Urine 0-2 /LPF (0-2); RBC Urine 0-2 /HPF (0-2); Squamous Epithelial Cell Urine 0-2 /HPF (0-2); WBC Urine 0-5 /HPF (0-5)
[2022-11-12 10:46] LABS: Amphetamine Screen Urine Not Detected (Not Detect); Barbiturates, Urine Not Detected (Not Detect); Benzodiazepines Screen Urine Not Detected (Not Detect); Cannabinoid Screen Urine Not Detected (Not Detect); Cocaine Screen Urine Not Detected (Not Detect); Fentanyl, urine Not Detected (Not Detect); Opiate Screen Urine Not Detected (Not Detect); Phencyclidine Screen Urine Not Detected (Not Detect)
[2022-11-12 14:29] VITALS: BP 120/70; PULSE 67; RESP 16; TEMP 36.6; O2SAT 99
[2022-11-12 14:32] LABS: MANUAL DIFF FLAG NO
[2022-11-12 14:33] LABS: Basophils Percent Auto 0.4 % (0-2); Eosinophils Absolute Auto 0.1 X10*3/uL (0.0-0.4); Eosinophils Percent Auto 2.3 % (0-4); Hematocrit 42.7 % (37.0-47.0); Hemoglobin 13.9 g/dl (12.0-16.0); Imm Gran Abs Auto 0.01 X10*3/uL (0.00-0.03); Imm Gran Pct Auto 0.2 % (0.0-0.4); Lymphocytes Absolute Auto 1.9 X10*3/uL (1.2-4.9); Mean Corpuscular HGB Conc 32.6 g/dl (31.0-35.0); Mean Corpuscular Hemoglobin 30.8 pg (27.0-33.0); Mean Corpuscular Volume 94.5 fL (80.0-98.0); Mean Platelet Volume 9.6 fL (9.4-12.3); Monocytes Absolute Auto 0.4 X10*3/uL (0.1-1.2); Monocytes Percent Auto 7.9 % (2-11); Neutrophils Absolute Auto 2.4 x10*3/uL (2.0-8.3); Neutrophils Percent Auto 50.2 % (45-73); Platelet Count 300 X10*3/uL (160-400); Red Blood Count 4.52 X10*6/uL (4.20-5.50); Red Cell Distribution Width 12.6 % (11.0-16.0); White Blood Count 4.8 X10*3/uL (4.8-10.8)
--- NOTE | 2022-11-12 17:27 | PC.NURSE ---
Called to Pt room to speak with Him and his Father regarding Section 12. According to Care Team [facility] is doing a bed search. Pt is becoming increasingly agitated. Pt allowed to obtain numbers for contacts from her phone to obtain more information.
--- NOTE | 2022-11-13 06:31 | PC.NURSE ---
Patient slept through the night, no distress observed/reported, behavior non concerning, disposition per [facility] is section 12 inpatient bed search, off her medication for years, VSS, will continue to monitor.
[2022-11-13 06:32] VITALS: BP 124/74; PULSE 56; RESP 16; TEMP 36.4; O2SAT 97
[2022-11-13 07:33] VITALS: BP 121/80; PULSE 60; RESP 16; TEMP 37.1; O2SAT 97
[2022-11-13 23:11] VITALS: BP 130/86; PULSE 82; RESP 16; TEMP 36.7; O2SAT 97
--- NOTE | 2022-11-14 07:45 | PC.NURSE ---
Up to shower. Ate Breakfast. Calm and cooperative.
--- NOTE | 2022-11-14 11:02 | PC.NURSE ---
Pt A & O X $. Ate Breakfast, took a shower, up to [place] watching TV. [facility] spoke with Pt this am.
[2022-11-14 15:54] VITALS: BP 126/72; PULSE 64; RESP 18; TEMP 36.4; O2SAT 98
[2022-11-14 22:00] VITALS: RESP 14
--- NOTE | 2022-11-14 23:04 | PC.NURSE ---
Pt aox4. Showered. Resting at the bedside. Denies SI/HI at this time. No apparent distress noted. Aware of plan of care. Will continue to monitor.
--- NOTE | 2022-11-15 00:07 | PM.PSYCN ---
History of Present Illness Date of Service: 11/14/2022 Chief Complaint: SI Reason for Consult: Prolonged ED stay Sources of Information: patient interviewed, chart reviewed and crisis/core team assessment reviewed HPI Narrative: 32 yo trans male patient, single, lives alone in an apartment. Patient has a history of bipolar disorder, currently on no medications. He was sent to [facility] from [facility] community crisis center on 11/11/22 after his housing case manager Bee took him there for an evaluation. He has been decompensating lately with increased manic symptoms. He has not been sleeping. He has had increased energy, increased talkativeness, racing thoughts and tangential thinking, increased paranoia and making threatening statements towards his mother and himself. He has been taking photographs of a man in his neighborhood and sending them to his program staff. He has been talking about being angry with his mom and wanting to shoot her. He also talked about shooting up and overdosing as a way to end his life. He then would retract these statements. He had recently impulsively bought a one way ticket to [place] and then hitch hiked to [place]. His father and brother had to buy him a ticket home. Staff at the [facility] subsidized housing where he resides have been concerned about his behavioral changes. When he arrived at [facility] he was dysregulated and angry and needed chemical restraint. He has been evaluated by [facility] daily and continues to be a bed search. He tells this technical writer and editor that this was all a misunderstanding. He says he believed he was going to see a new therapist at [facility] and his telehealth case manager was taking him to that appointment. He denies that he meant any of the statements that were reported and wants to leave. During the interview he presents as pressured, with FOI, and appears to have racing thoughts. He denied psychotic symptoms. [facility] report mentions that he knows what to say to avoid being hospitalized. He has not been on psychotropics of late. He says he uses holistic treatments and testosterone. He is not interested in psychotropics and becomes paranoid and irritable when this technical writer and editor asks him why he stopped the Abilify Maintena treatment. Past Psychiatric History: inpatient admission [facility] November 2020 last inpatient admission 1 years ago, started on meds, reportedly did well other inpatients admissions hx of childhood trauma, not discussed Medical Evaluation Reviewed: Yes PMFSH Medical History Bipolar disorder Chronic post-traumatic stress disorder (PTSD) Surgical History Hx of colonoscopy Social History: lives alone Diagnostics Vital Signs (24Hr): Vital Signs - 24 hr 11/14/22 15:54 Temperature 97.6 F Pulse Rate 64 Respiratory Rate 18 Blood Pressure 126/72 Pulse Oximetry 98 Oxygen Delivery Method Room Air BMI result Body Mass Index 29.2 Labs 11/12/22 14:24 11/11/22 20:34 Mental Status Exam Mental Status Exam Patient Appearance: Appropriate Patient Orientation: Person, Place, Time and Situation Level of Consciousness: Awake, Restless and Alert Patient Behavior: Guarded, Talkative, Hyperactive, Suspicious, Restless, Anxious and Impulsive Mood Description: Depressed and Anxious Affect Description: Suspicious, Constricted, Anxious and Expansive Patient Cognition Impaired: No Ability to Follow Directions: Good Speech Pattern: Perseverating, Rambling, Rapid and Pressured Memory Description: Intact Hallucinations: None Delusions: Paranoid Ideation Thought Process: Racing Thought Content: positive for Flight of Ideas, positive for Racing, positive for Perseveration (on wanting to leave) and positive for Evasive Depressive Symptoms: Increased Anxiety Abnormal Motor Activity Signs and Symptoms: Hyperactivity and Restlessness Judgement: Poor Medications Allergies Allergies Allergy/AdvReac Type Severity Reaction Status Date / Time iodine [IODINE] Allergy Unknown ITCHING Verified 09/13/22 09:27 shellfish derived Allergy Unknown HIVES Verified 09/13/22 09:27 [SHELLFISH DERIVED] tree nut [TREE NUT] Allergy Unknown DIFFICULTY Verified 09/13/22 09:27 BREATHING DAIRY PRODUCTS Allergy Unknown STOMACH Uncoded 09/13/22 09:27 UPSET Assessment & Plan Assessment & Plan (1) Bipolar disorder: Status: Chronic Code(s): F31.9 - Bipolar disorder, unspecified (2) Chronic post-traumatic stress disorder (PTSD): Status: Chronic Code(s): F43.12 - Post-traumatic stress disorder, chronic Plan 32 year old trans male with a history of untreated bipolar disorder. He presents in a manic state, paranoia and suicidal and homicidal ideation and statements. Per report he is not at his baseline. He is currently a bed search through [facility]. He was initially more agitated at presentation and required chemical restraint. Plan: Continue bed search per [facility] and CARE team. If becomes agitated and non-redirectable could use Haldol 5 mg, Ativan 2 mg and Benadryl 50 mg PO or IM or Olanzapine 10 mg PO or IM for agitation. Total time managing care of this patient today ____ minutes. Patient educated on: diagnosis and medication risk/benefits Informed Consent: understands and further education needed
--- NOTE | 2022-11-15 04:10 | PC.NURSE ---
Pt sleeping at the bedside. No apparent distress noted. Breaths are even, regular, and unlabored. Will continue to monitor.
[2022-11-15 04:52] VITALS: BP 125/78; PULSE 65; RESP 17; TEMP 36.6; O2SAT 97
[2022-11-15 09:06] VITALS: BP 129/77; PULSE 65; RESP 15; TEMP 36.4; O2SAT 97
[2022-11-15 15:47] VITALS: BP 128/87; PULSE 78; RESP 18; TEMP 36.7; O2SAT 97
--- NOTE | 2022-11-15 18:07 | PC.ADMIT ---
Addendum entered by Jojo Mendoza RN 11/15/22 18:30: Tox screen negative Original Note: Jaime is a 32-year-old female to male transgender (he/him/his) [place] [facility] [place] [facility] for treatment of schizoaffective disorder bipolar type. CV and 3 day notice signed. Pt made concerning statements to his program's staff stating my mom drives me crazy, I am gonna shoot her, but I am not gonna shoot her. He also reported that he planned to shoot up and OD followed by I'm not suicidal. While patient was in the pod, pt was physically and chemically restrained on 11/11 for yelling and being combative. Upon admission to [facility] Pt is alert and oriented and cooperative. Thought process is disorganized with tangential speech. Pt has difficulty focusing and frequently changes the subject. Pt states that it's a misunderstanding that he's here and he's hoping to be discharged by Tuesday.
[2022-11-15 21:08] VITALS: BP 124/76; PULSE 69; TEMP 36.7; O2SAT 96
[2022-11-16 08:50] VITALS: BP 127/68; PULSE 56; RESP 18; TEMP 36.3; O2SAT 100
--- NOTE | 2022-11-16 10:27 | P.HPPS_ITS ---
HPI Date of Service: 11/16/22 Chief Complaint: SI Sources of Information: patient interviewed, chart reviewed and crisis/core team assessment reviewed HPI Subjective Notes: [place] Warning (given and shows understanding) and Conditional Voluntary Narrative: Julius is 32 year-old F-to-M transgender (He/Him) who was assessed in the community due to presenting as increasingly more paranoid towards neighbors, irritable, reporting homicidal ideation with plan to shoot mother and then shoot himself. Pt has also been presenting with impulsive behaviors such traveling places with no way of returning home without assistance from parents. Pt has not received psychiatric treatment for several months. In the ED, utox is negative. On the unit, pt presents as talkative, somewhat irritable but amenable to meet with this race and sports book writer. Pt denies homicidal or suicidal ideation reporting that being here on the unit has been a misunderstanding as he did not plan or intented to hurt himself or anyone else. He reports he has been doing fine, without psyc hiatric treatment since last admission back in 2020. He does not believe he has a mental illness nor any symptoms. He denies visual or homicidal ideation. He does report some paranoid ideas towards his neighbors stating that he suspect he may be [place]. He states he declined lab work this morning because he is aware that hospital is trying to donate his blood for dubious purposes. Pt reports medications were clogging his ovaries. He also suspect that medications were poisoning his blood and that the only medication he needs is the testosterone as part of transitioning process from female to male. He reports he has many plans and wants to become a [employer] tech. He reports family always had problems but were respectful to one another. He states I love my mother, I would never hurt her! He reports good sleep. Appetite as usual. He denies any physical concern other than left shoulder pain- has been seeing ortho outpatient. Past Psychiatric History: inpatient admission [facility] [place] 2020 last inpatient admission 1 years ago, started on meds, reportedly did well other inpatients admissions hx of childhood trauma, not discussed Medical Evaluation Reviewed: Yes PMFSH Surgical History Hx of colonoscopy Social History: lives alone Diagnostics Vital Signs (24Hr): Vital Signs - 24 hr 11/15/22 15:47 11/15/22 21:08 11/16/22 08:50 Temperature 98.0 F 98.1 F 97.4 F Pulse Rate 78 69 56 Respiratory Rate 18 18 Blood Pressure 128/87 124/76 127/68 Pulse Oximetry 97 96 100 Oxygen Delivery Method Room Air Room Air Room Air BMI result Body Mass Index 29.2 Labs 11/12/22 14:24 11/11/22 20:34 Meds/Allergies Meds Home Medications Medication Instructions Recorded Confirmed Type testosterone cypionate 200 mg/mL 80 mg subcut QWEEK 12/17/22 12/17/22 History intramuscular oil Allergies Allergies Allergy/AdvReac Type Severity Reaction Status Date / Time iodine [IODINE] Allergy Unknown ITCHING Verified 11/18/22 12:49 shellfish derived Allergy Unknown HIVES Verified 11/18/22 12:49 [SHELLFISH DERIVED] tree nut [TREE NUT] Allergy Unknown DIFFICULTY Verified 11/18/22 12:49 BREATHING DAIRY PRODUCTS Allergy Unknown STOMACH Uncoded 11/18/22 12:49 UPSET Mental Status Exam Mental Status Exam Narrative: Appearance: casually groomed, good hygiene, in NAD Behavior: initially somewhat guarded, later more cooperative Psychomotor: no agitation or retardation noted Speech: clear, hyperverbal (difficult to interrupt), pressured, spontaneous TP: flight of ideas TC: some paranoia and suspiciousness towards neighbors medications, additional medical treatments Mood: good Affect: moderately labile SI: denies HI: denies VH/AH: denies Delusions: paranoid ideas towards neighbors, government trying to steal his blood Cog/memory: alert, oriented x 3. poor attention Assessment & Plan Assessment & Plan (1) Schizoaffective disorder, bipolar type: Status: Acute Code(s): F25.0 - Schizoaffective disorder, bipolar type Plan Mr. Madrid is a 32 year-old female to male trans with hx of schizoaffective bipolar disorder who was assessed by [facility] as his outpatient providers reported pt has been presenting as increasingly more paranoid towards a particular neighbor, reported homicidal ideation towards his mother with plan to shoot her and then himself. In the ED, utox is negative. Pt presents as hyperverbal with paranoid delusions towards neighbors, adamantly denies any suicidal or homicidal ideation. He also presents with no insight into mental illness and need for ongoing treatment. After discussing risks, benefits and alternative treatment options, pt declines any medications. PLAN 1. Admit to , CV, 15 minutes checks 2. obtain collateral information 3. aftercare planning. Patient educated on: diagnosis and medication risk/benefits Informed Consent: understands Reason for continued inpatient stay Substantial Risk for: harm to others and inability to function Statement Statement: I have reviewed the history and physical and performed a pertinent examination on my patient. No changes have occurred unless specified. If the History and Physical was not performed prior to admission, the Hospitalist's service will be consulted for completing the admission physical. Time Spent With Patient Time: Total time managing care of this patient today 30 minutes.
[2022-11-16 20:00] VITALS: BP 140/91; PULSE 88; TEMP 36.8; O2SAT 97
[2022-11-17 08:04] VITALS: BP 132/66; PULSE 56; RESP 18; TEMP 36.1; O2SAT 100
[2022-11-17 20:30] VITALS: BP 143/66; PULSE 104; RESP 18; TEMP 36.9; O2SAT 98
--- NOTE | 2022-11-17 21:33 | HO.PSYCHPN ---
Subjective Subjective Date of Service: 11/17/22 Reason For Visit: SI Subjective Notes: Conditional Voluntary Interim History: Pt presents as hyperverbal, flight of ideas, difficult to interrupt, reports feeling affended by peer during group. He was asked to leave group as disruptive. No agitation nor combative behaviors, pt did leave group without much resistance. Pt continues to report that he does not need psychiatric treatment nor medications. Pt presents with good hygiene, casually groomed. No SI/HI. Mental Status Exam Mental Status Exam Narrative: Appearance: casually groomed, good hygiene, in NAD Behavior: initially somewhat guarded, later more cooperative Psychomotor: no agitation or retardation noted Speech: clear, hyperverbal (difficult to interrupt), pressured, spontaneous TP: flight of ideas TC: some paranoia and suspiciousness towards neighbors medications, additional medical treatments Mood: good Affect: moderately labile SI: denies HI: denies VH/AH: denies Delusions: paranoid ideas towards neighbors, government trying to steal his blood Cog/memory: alert, oriented x 3. poor attention Diagnostics Vital Signs (24Hr): Vital Signs - 24 hr 11/17/22 08:04 Temperature 97.0 F Pulse Rate 56 Respiratory Rate 18 Blood Pressure 132/66 Pulse Oximetry 100 Oxygen Delivery Method Room Air BMI result Body Mass Index 29.2 Labs 11/12/22 14:24 11/11/22 20:34 Medications Medications Current Medications Acetaminophen (Acetaminophen 325 Mg Tablet) 650 mg PO Q6H PRN PRN Reason: Headache/Pain Mild Scale (1-3) Al Hydroxide/Mg Hydroxide (Magnesium Hydrox/Alum Hydrox 30 Ml Oral.Susp) 30 ml PO Q6H PRN PRN Reason: Heartburn/Nausea Hydroxyzine HCl (Hydroxyzine Hcl 25 Mg Tablet) 25 mg PO Q6H PRN PRN Reason: Anxiety Magnesium Hydroxide (Milk Of Magnesia 30 Ml Oral.Susp) 30 ml PO DAILY PRN PRN Reason: Constipation Trazodone HCl (Trazodone Hcl 50 Mg Tablet) 50 mg PO BEDTIME MRX1 PRN PRN Reason: Insomnia Allergies Allergies Allergy/AdvReac Type Severity Reaction Status Date / Time iodine [IODINE] Allergy Unknown ITCHING Verified 09/13/22 09:27 shellfish derived Allergy Unknown HIVES Verified 09/13/22 09:27 [SHELLFISH DERIVED] tree nut [TREE NUT] Allergy Unknown DIFFICULTY Verified 09/13/22 09:27 BREATHING DAIRY PRODUCTS Allergy Unknown STOMACH Uncoded 09/13/22 09:27 UPSET Assessment & Plan Assessment & Plan (1) Schizoaffective disorder, bipolar type: Status: Acute Code(s): F25.0 - Schizoaffective disorder, bipolar type Plan Mr. Madrid is a 32 year-old female to male trans with hx of schizoaffective bipolar disorder who was assessed by [facility] as his outpatient providers reported pt has been presenting as increasingly more paranoid towards a particular neighbor, reported homicidal ideation towards his mother with plan to shoot her and then himself. In the ED, utox is negative. Pt presents as hyperverbal with paranoid delusions towards neighbors, adamantly denies any suicidal or homicidal ideation. He also presents with no insight into mental illness and need for ongoing treatment. After discussing risks, benefits and alternative treatment options, pt declines any medications. PLAN 1. Admit to [facility], CV, 15 minutes checks 2. obtain collateral information 3. aftercare planning. 11/17 continue tx. d/c tomorrow. continues to decline medications. Reason for continued inpatient stay Substantial Risk for: stable for discharge Time Spent With Patient Time: Total time managing care of this patient today ____ minutes.
--- NOTE | 2022-11-18 06:00 | PC.NURSE ---
Jaime is noted to be visible and social with select peers. he is loud and disruptive throughout the evening. no difficulty with redirection but did not quiet down. the patient watched TV until approximately 22:00 and then appeared to sleep soundly throughout the night. patient scheduled for d/c in am. continue Plan of Care, monitor for safety
[2022-11-18 08:49] VITALS: BP 130/68; PULSE 87; RESP 16; TEMP 36.6; O2SAT 98
--- NOTE | 2022-11-18 10:12 | P.DS_ITS ---
DS: Providers Provider Date of Service: 11/18/22 Date of admission: 11/15/22 16:15 Primary care physician: Karin Cruz MD DS: Diagnosis Discharge Diagnosis (1) Schizoaffective disorder, bipolar type: Status: Acute DS: Medications Discharge Medications Home Medications: Home Medications Medication Instructions Recorded Confirmed No Known Home Meds 11/11/22 11/11/22 Data Data Completed and Pending Completed studies during hospitalization [Text1]: 11/11/22 11/11/22 11/11/22 19:58 20:34 20:34 WBC Cancelled RBC Cancelled Hgb Cancelled Hct Cancelled MCV Cancelled MCH Cancelled MCHC Cancelled RDW Cancelled Plt Count Cancelled MPV Cancelled Immature Gran % (Auto) Cancelled Neut % (Auto) Cancelled Lymph % (Auto) Cancelled [place] % (Auto) Cancelled Eos % (Auto) Cancelled Baso % (Auto) Cancelled Lymph # (Auto) Cancelled [place] # (Auto) Cancelled Eos # (Auto) Cancelled Baso # (Auto) Cancelled Abs Immat Gran (auto) Cancelled Absolute Neuts (auto) Cancelled Absolute Nucleated RBC Cancelled Nucleated RBC % (auto) Cancelled Sodium 140 Potassium 3.6 Chloride 104 Carbon Dioxide 23 Anion Gap 17 BUN 12 Creatinine 1.15 Estim Creat Clear Calc 66.0 Estimated GFR 55 Random Glucose 87 Calcium 9.3 Total Bilirubin 0.5 AST 26 ALT 19 Alkaline Phosphatase 74 Total Protein 6.9 Albumin 4.0 Urine Color Urine Appearance Urine pH Ur Specific [place] Urine Protein Urine Glucose (UA) Urine Ketones Urine Blood Urine Nitrite Ur Leukocyte Esterase Urine RBC Urine WBC Ur Squamous Epith Cells Urine Bacteria Hyaline Casts Urine Test Urine Opiates Screen Urine Fentanyl Screen Ur Barbiturates Screen Ur Phencyclidine Scrn Ur Amphetamines Screen U Benzodiazepines Scrn Urine Cocaine Screen U Marijuana (THC) Screen Ethyl Alcohol < 10 COVID-19 (TRUDY) Negative COVID-19 Clin Com See Note 11/12/22 11/12/22 11/12/22 09:41 09:41 09:42 WBC RBC Hgb Hct MCV MCH MCHC RDW Plt Count MPV Immature Gran % (Auto) Neut % (Auto) Lymph % (Auto) [place] % (Auto) Eos % (Auto) Baso % (Auto) Lymph # (Auto) [place] # (Auto) Eos # (Auto) Baso # (Auto) Abs Immat Gran (auto) Absolute Neuts (auto) Absolute Nucleated RBC Nucleated RBC % (auto) Sodium Potassium Chloride Carbon Dioxide Anion Gap BUN Creatinine Estim Creat Clear Calc Estimated GFR Random Glucose Calcium Total Bilirubin AST ALT Alkaline Phosphatase Total Protein Albumin Urine Color Yellow Urine Appearance Clear Urine pH 5.5 Ur Specific [place] 1.015 Urine Protein Negative Urine Glucose (UA) Negative Urine Ketones Trace Urine Blood Negative Urine Nitrite Negative Ur Leukocyte Esterase Trace H Urine RBC 0-2 Urine WBC 0-5 Ur Squamous Epith Cells 0-2 Urine Bacteria None Seen Hyaline Casts 0-2 Urine Test NEGATIVE Urine Opiates Screen Not Detected Urine Fentanyl Screen Not Detected Ur Barbiturates Screen Not Detected Ur Phencyclidine Scrn Not Detected Ur Amphetamines Screen Not Detected U Benzodiazepines Scrn Not Detected Urine Cocaine Screen Not Detected U Marijuana (THC) Screen Not Detected Ethyl Alcohol COVID-19 (TRUDY) COVID-19 Snapflow 11/12/22 14:24 WBC 4.8 RBC 4.52 Hgb 13.9 Hct 42.7 MCV 94.5 MCH 30.8 MCHC 32.6 RDW 12.6 Plt Count 300 MPV 9.6 Immature Gran % (Auto) 0.2 Neut % (Auto) 50.2 Lymph % (Auto) 39.0 [place] % (Auto) 7.9 Eos % (Auto) 2.3 Baso % (Auto) 0.4 Lymph # (Auto) 1.9 [place] # (Auto) 0.4 Eos # (Auto) 0.1 Baso # (Auto) 0.0 Abs Immat Gran (auto) 0.01 Absolute Neuts (auto) 2.4 Absolute Nucleated RBC 0.000 Nucleated RBC % (auto) 0.0 Sodium Potassium Chloride Carbon Dioxide Anion Gap BUN Creatinine Estim Creat Clear Calc Estimated GFR Random Glucose Calcium Total Bilirubin AST ALT Alkaline Phosphatase Total Protein Albumin Urine Color Urine Appearance Urine pH Ur Specific [place] Urine Protein Urine Glucose (UA) Urine Ketones Urine Blood Urine Nitrite Ur Leukocyte Esterase Urine RBC Urine WBC Ur Squamous Epith Cells Urine Bacteria Hyaline Casts Urine Test Urine Opiates Screen Urine Fentanyl Screen Ur Barbiturates Screen Ur Phencyclidine Scrn Ur Amphetamines Screen U Benzodiazepines Scrn Urine Cocaine Screen U Marijuana (THC) Screen Ethyl Alcohol COVID-19 (TRUDY) COVID-19 Clin Com DS: Summary Hospital Course Hospital Course: josue is 32 year-old F-to-M transgender (He/Him) who was assessed in the community due to presenting as increasingly more paranoid towards neighbors, irritable, reporting homicidal ideation with plan to shoot mother and then shoot himself. Pt has also been presenting with impulsive behaviors such traveling places with no way of returning home without assistance from parents. Pt has not received psychiatric treatment for several months. In the ED, utox is negative. On the unit, pt presents as talkative, somewhat irritable but amenable to meet with this mortgage loan underwriter. Pt denies homicidal or suicidal ideation reporting that being here on the unit has been a misunderstanding as he did not plan or intented to hurt himself or anyone else. He reports he has been doing fine, without p sychiatric treatment since last admission back in 2020. He does not believe he has a mental illness nor any symptoms. He denies visual or homicidal ideation. He does report some paranoid ideas towards his neighbors stating that he suspect he may be [place]. He states he declined lab work this morning because he is aware that hospital is trying to donate his blood for dubious purposes. Pt reports medications were clogging his ovaries. He also suspect that medications were poisoning his blood and that the only medication he needs is the testosterone as part of transitioning process from female to male. He reports he has many plans and wants to become a [employer] tech. He reports family always had problems but were respectful to one another. He states I love my mother, I would never hurt her! He reports good sleep. Appetite as usual. He denies any physical concern other than left shoulder pain- has been seeing ortho outpatient. Past Psychiatric History: inpatient [place] [facility] [place] last inpatient admission 1 years ago, started on meds, reportedly did well other inpatients admissions hx of childhood trauma, not discussed Medical Evaluation Reviewed: Yes HOSPITAL COURSE On the unit, pt was admitted on a CV and placed on 15 minutes checks for safety. After reviewing risks, benefits and alternative treatment option, pt declined to start antipsychotic or mood stabilizer as he reported medications were poisoned. He was visible on the unit, social with select peers. He denied suicidal or homicidal ideation. There were no incidences of disruptive behaviors nor need for restraints. Given that patient appeared in much more behavioral concern, and there was no imminent risk for harm to self or others, pt discharged back home. Collateral information was gathered from community workers who reported pt decompensating but no recent assaultive or dangerous behaviors to go to court for involuntary treatment. Time spent discussing smoking cessation with patient: 3 to 10 minutes Status at Discharge Cognitive/behavioral status at discharge: Pt with expansive affect. Some grandiose ideas along with paranoid ideas related to medications and people trying to steal his blood. No SI/HI. No signs of aggression towards self or others. Pt sleeping and eating well. Functional status at discharge: independent ambulation Overall status at discharge: patient is progressing back to baseline Time Spent with Patient Time attestation: Total time managing care of this patient today ____ minutes. Discharge Plan Discharge Anticipated Discharge Date/Time: 11/18/22 10:08 Patient Disposition: Home, Self-Care Discharge Diagnosis: schizoaffective bipolar type Referrals: Karin Cruz MD [Primary Care Provider] - 1 Week ('s office will call patient for appointment) Discharge Medications: No Action diphenhydramine HCl 25 mg Capsule 50 mg PO Q6H PRN (Reason: anxiety, agitation) 30 Days Qty: 60 0RF aripiprazole [Abilify] 30 mg Tablet 30 mg PO DAILY 30 Days Qty: 30 0RF Discharge Orders: Discharge Order (Routine); Ordered 11/18/22 Ordered By: Sanjuana Ha Diet: Advance to usual diet Activity on Discharge: As tolerated Stand Alone Forms: Patient Portal Discharge page, Community Support Care Plan Goals: 1. Maintain mood 2. No SI/HI 3. no aggression towards self or others 4. Consider outpatient psychiatric treatment Health Concerns: Follow up with PCP, ortho for shoulder injury Plan of Treatment: 1. Take medications as prescribed 2. Go to nearest ED or call 911 in event of emergency Assessment: Pt with overly bright affect, still labile but not hostile. Pt continues to present as hyperverbal difficult to interrupt. No SI/HI. Pt continues to present with paranoid ideas, some grandiose ideas as well. No aggression towards self or others. Discharge Date/Time: 11/18/22 12:33
--- NOTE | 2022-11-18 10:18 | PC.NURSE ---
Jaime is alert and fully oriented, pleasant and cooperative with discharge process. Jaime denies ideation, plan or intent to harm self or others. Jaime verbalizes understanding of discharge plan.
== END 2022-11-18 12:33 | disposition home or self-care (01) | DRG 885 ==
LOC: HO.ED 21:23 → HO.PADLT16 11-15 16:30
PROVIDERS: Emergency Medicine; Admitting Provider Social Worker; Emergency Provider Emergency Medicine; PCP Family Medicine; Visit Provider Social Worker
DX: F25.0 Schizoaffective disorder, bipolar type (principal); R45.851 Suicidal ideations; R45.850 Homicidal ideations; F43.12 Post-traumatic stress disorder, chronic; F64.0 Transsexualism; Z20.822 Contact with and (suspected) exposure to COVID-19; Z79.899 Other long term (current) drug therapy
CPT/HCPCS: 36415; 80053; 80307; 81001; 81003; 81025; 82077; 85025; 87635; 93005; 99285; J1200; J2060

== ENCOUNTER → 2022-11-18 12:38 | Outpatient (BNVA) | payer MEDICARE, MEDICAID, SELFPAY | PROVIDERS: PCP Family Medicine; Visit Provider Physician Assistant | DX: S43.492D Other sprain of left shoulder joint, subsequent encounter (principal) | CPT/HCPCS: 99212 ==

== ENCOUNTER 2022-12-17 03:15 | Inpatient (IN) | payer MEDICARE, MEDICAID, SELFPAY ==
[2022-12-17 03:29] VITALS: BP 118/86; PULSE 69; RESP 19; TEMP 37; O2SAT 100; BMI 29.0
[2022-12-17 03:49] LABS: MANUAL DIFF FLAG NO
[2022-12-17 03:50] LABS: Basophils Percent Auto 0.4 % (0-2); Eosinophils Absolute Auto 0.1 X10*3/uL (0.0-0.4); Eosinophils Percent Auto 1.4 % (0-4); Hematocrit 38.2 % (37.0-47.0); Hemoglobin 12.5 g/dl (12.0-16.0); Imm Gran Abs Auto 0.01 X10*3/uL (0.00-0.03); Imm Gran Pct Auto 0.2 % (0.0-0.4); Lymphocytes Absolute Auto 2.1 X10*3/uL (1.2-4.9); Lymphocytes Percent Auto 42.2 % (20-40); Mean Corpuscular HGB Conc 32.7 g/dl (31.0-35.0); Mean Corpuscular Hemoglobin 30.2 pg (27.0-33.0); Mean Corpuscular Volume 92.3 fL (80.0-98.0); Mean Platelet Volume 9.7 fL (9.4-12.3); Monocytes Absolute Auto 0.5 X10*3/uL (0.1-1.2); Monocytes Percent Auto 9.3 % (2-11); Neutrophils Absolute Auto 2.4 x10*3/uL (2.0-8.3); Neutrophils Percent Auto 46.5 % (45-73); Platelet Count 289 X10*3/uL (160-400); Red Blood Count 4.14 X10*6/uL (4.20-5.50); White Blood Count 5.1 X10*3/uL (4.8-10.8)
[2022-12-17 03:52] LABS: Appearance Urine Cloudy; Color Urine Yellow; Glucose Urine UA Negative (Negative); Leukocyte Esterase Urine Small (1+) (Negative); Nitrite Urine Negative (Negative); PH 5.5 (5.0-9.0); Specific Gravity - Urine >= 1.030 (1.005-1.025); UMIC TRIGGER UA YES; Urine Blood Negative (Negative); Urine Ketones 40 mg/dL (Negative); Urine Protein 30 (1+) mg/dL (Neg-Trace)
[2022-12-17 03:53] LABS: UPreg QC Valid YES; Urine Pregnancy NEGATIVE (NEGATIVE)
[2022-12-17 04:02] LABS: Amphetamine Screen Urine Not Detected (Not Detect); Barbiturates, Urine Not Detected (Not Detect); Benzodiazepines Screen Urine Not Detected (Not Detect); Cannabinoid Screen Urine Not Detected (Not Detect); Cocaine Screen Urine Not Detected (Not Detect); Fentanyl, urine Not Detected (Not Detect); Opiate Screen Urine Not Detected (Not Detect); Phencyclidine Screen Urine Not Detected (Not Detect)
[2022-12-17 04:03] LABS: Bacteria Urine None Seen (None Seen); Calcium Oxalate Crystals Urine Present
[2022-12-17 04:05] LABS: COVID-19 Test Negative (Negative); IDNOW Serial# BCCEAD1C
[2022-12-17 04:18] LABS: Alanine Aminotransferase 35 U/L (0-31); Albumin Level 4.1 g/dL (3.5-5.0); Alkaline Phosphatase 65 U/L (39-117); Anion Gap 15 (12-20); Aspartate Amino Transferase 48 U/L (5-31); Bilirubin Total 0.7 mg/dL (0.0-1.0); Blood Urea Nitrogen 10 mg/dL (9-16); Calcium 9.2 mg/dL (8.4-10.2); Carbon Dioxide 24 mmol/L (22-29); Chloride 105 mmol/L (96-108); Estimated Glomerular Filt Rate 56; Ethanol < 10 mg/dL; Glucose Random 82 mg/dL (60-115); Potassium 3.4 mmol/L (3.3-5.1); Sodium 141 mmol/L (135-145)
--- NOTE | 2022-12-17 05:51 | ED.PSYCH ---
HPI - Psych General Chief Complaint: Psychiatric Symptoms Stated Complaint: behavioral Time Seen by Provider: 12/17/22 05:51 Source: patient Mode of arrival: ambulatory Limitations: no limitations History of Present Illness HPI Narrative: 32-year-old with female to male transgender was found by the police wandering in the street patient had a recent mental hospitalization, patient is not compliant with her psych medication patient declined SI or HI. Related Data Home Medications Medication Instructions Recorded Confirmed testosterone cypionate 200 mg/mL 80 mg subcut QWEEK 12/17/22 12/17/22 intramuscular oil Allergies Allergy/AdvReac Type Severity Reaction Status Date / Time iodine [IODINE] Allergy Unknown ITCHING Verified 11/18/22 12:49 shellfish derived Allergy Unknown HIVES Verified 11/18/22 12:49 [SHELLFISH DERIVED] tree nut [TREE NUT] Allergy Unknown DIFFICULTY Verified 11/18/22 12:49 BREATHING DAIRY PRODUCTS Allergy Unknown STOMACH Uncoded 11/18/22 12:49 UPSET Review of Systems Review of Systems: All other systems are reviewed and are negative Constitutional: Reports as per HPI and Reports no additional constitutional complaints Eyes: Reports as per HPI and Reports no additional eye complaints Reports system reviewed and no additional complaints, except as documented Cardiovascular: Reports as per HPI and Reports no additional cardiovascular complaints Respiratory: Reports as per HPI and Reports no additional respiratory complaints Gastrointestinal: Reports as per HPI and Reports no additional gastrointestinal complaints Genitourinary: Reports no additional female genitourinary complaints Musculoskeletal: Reports no additional musculoskeletal complaints Skin/Breast: Reports system reviewed and no additional complaints, except as docu Psychiatric: Reports no additional psychiatric complaints Endocrine: Reports no additional endocrine complaints Hematologic/Lymphatic: Reports no additional hematologic/lymphatic complaints Allergic/Immunologic: Reports no additional allergic/immunologic complaints Reports system reviewed and no additional complaints, except as documented and Reports Abnormal speech present [facility] Past Medical History Surgical History Hx of colonoscopy Social History Social History Household Members: Unknown / Unable to assess Housing: Apartment Are you a primary home health care case manager to a significant other at home: No Do you presently have visiting nurse or other home services: No Unable to assess alcohol history related to: Unknown Alcohol intake: unknown Patient Tobacco Use Status: Refuse Tobacco use screen Tobacco use type: Cigarette Cigarettes Per Day: 4 Second Hand Smoke Exposure: Yes Substance Use Type: Marijuana Advance Directives: No Advance Directives Information Provided: No service: No Sexual orientation: Questioning Physical Exam Vital Signs: Vital Signs: Last Vital Signs Temp 98.6 F 12/17/22 03:29 Pulse 69 12/17/22 03:29 Resp 19 12/17/22 03:29 BP 118/86 12/17/22 03:29 Pulse Ox 100 12/17/22 03:29 O2 Del Method Room Air 12/17/22 03:29 BMI result Body Mass Index 29.0 Vital signs have been reviewed as appeared to be correct. Blood pressure normal. Heart rate normal. Respiration rate normal. Temperature normal. Oxygen saturation normal. Appearance: Alert. Oriented X3. No acute distress. Head: Normal external exam. Normocephalic. Atraumatic. No Atkinson signs noted. No raccoon eyes noted Eyes: PERRLA. EOMI. Conjunctiva and sclera normal. Eyelids normal. ENT: TM's Normal. Pharynx normal. Uvula midline. Moist mucous membranes. No trismus noted. No drooling noted. No muffled voice noted. Neck: Normal inspection. Neck supple. FROM. No adenopathy. Thyroid Normal. No meningeal signs. No neck mass noted. CVS: Normal heart rate and rhythm. Heart sound normal. No murmurs noted. Pulses normal throughout. Respiratory: No respiratory distress. Painless inspiration. Breath sounds normal. No wheezes/rales/rhonchi noted. Chest nontender. No accessory muscle usage noted or decreased air movement noted. Abdomen: Soft and nontender. Bowel sounds normal in all 4 quadrants. No distention noted. No organomegaly noted. No visible injury noted. Back: No CVA tenderness. Full range of motion noted. Skin: Skin warm and dry. Normal skin color. Normal skin turgor. No rashes/lesions/lacerations noted. Extremities: No lower extremity edema. Extremities exhibit normal range of motion. Extremities nontender. Neuro: Oriented X 3. Cranial nerve exam: II-XII are grossly intact No motor deficit. No sensory deficit. Reflexes normal. Patient Orientation: Person, Place, Time and Situation, okay hygiene and grooming. Fair eye contact, attentive, no tics or tremors. Level of Consciousness: Awake, Appropriate and Alert Patient Behavior: Appropriate, Guarded, Cooperative and Anxious Mood Description: Constricted, Blunted and Apprehensive Affect Description: Constricted, Blunted and Apprehensive Patient Cognition Impaired: No Ability to Follow Directions: Excellent Speech Pattern: Clear, Appropriate and Spontaneous Speech, nonpressured, spontaneous with regular rate and rhythm, normal volume and prosody. No dysarthria. Memory Description: Intact, Immediate Intact and Short Term Intact Hallucinations: None Delusions: Not Present Thought Process: Intact Thought Content: positive for Intact, positive for Logical, denies Suicidal Ideation and denies Homicidal Ideation. Depressive Symptoms: Not present. Judgement and Insight: Limited but adequate. Course Course Course Narrative: Known history of schizoaffective disorder/bipolar type not compliant with her medication medically cleared await for care team evaluation. Urinary tract infection will treat with cefuroxime Medical Decision Making Differential Diagnosis Differential Diagnoses: The differential diagnosis associated with the presentation includes (Schizoaffective/bipolar/electrolyte abnormalities/UTI/severe anemia.) Admission/Observation Consideration of admission/observation: Escalation of care including admission/observation considered Lab Data MDM Lab Attestation statement: I reviewed the patient's lab results. 12/17/22 03:44 12/17/22 03:44 Labs: Lab Results 12/17/22 12/17/22 12/17/22 Range/Units 03:39 03:39 03:39 WBC (4.8-10.8) X10*3/uL RBC (4.20-5.50) X10*6/uL Hgb (12.0-16.0) g/dl Hct (37.0-47.0) % MCV (80.0-98.0) fL MCH (27.0-33.0) pg MCHC (31.0-35.0) g/dl RDW (11.0-16.0) % Plt Count (160-400) X10*3/uL MPV (9.4-12.3) fL Immature Gran % (Auto) (0.0-0.4) % Neut % (Auto) (45-73) % Lymph % (Auto) (20-40) % [place] % (Auto) (2-11) % Eos % (Auto) (0-4) % Baso % (Auto) (0-2) % Lymph # (Auto) (1.2-4.9) X10*3/uL [place] # (Auto) (0.1-1.2) X10*3/uL Eos # (Auto) (0.0-0.4) X10*3/uL Baso # (Auto) (0.0-0.2) X10*3/uL Abs Immat Gran (auto) (0.00-0.03) X10*3/uL Absolute Neuts (auto) (2.0-8.3) x10*3/uL Absolute Nucleated RBC (0.0-0.012) X10*3/uL Nucleated RBC % (auto) (0.0-0.2) /100WBC Sodium (135-145) mmol/L Potassium (3.3-5.1) mmol/L Chloride (96-108) mmol/L Carbon Dioxide (22-29) mmol/L Anion Gap (12-20) BUN (9-16) mg/dL Creatinine (0.5-1.4) mg/dL Estim Creat Clear Calc Estimated GFR Random Glucose (60-115) mg/dL Calcium (8.4-10.2) mg/dL Total Bilirubin (0.0-1.0) mg/dL AST (5-31) U/L ALT (0-31) U/L Alkaline Phosphatase (39-117) U/L Total Protein (6.5-8.0) g/dL Albumin (3.5-5.0) g/dL Urine Color Urine Appearance Urine pH (5.0-9.0) Ur Specific [place] (1.005-1.025) Urine Protein (Neg-Trace) mg/dL Urine Glucose (UA) (Negative) mg/dL Urine Ketones (Negative) mg/dL Urine Blood (Negative) Urine Nitrite (Negative) Ur Leukocyte Esterase (Negative) Urine RBC (0-2) /HPF Urine WBC (0-5) /HPF Ur Squamous Epith Cells (0-2) /HPF Calcium Oxalate Crystal Urine Bacteria (None Seen) Hyaline Casts (0-2) /LPF Urine Test NEGATIVE (NEGATIVE) Urine Opiates Screen Not Detected (Not Detect) Urine Fentanyl Screen Not Detected (Not Detect) Ur Barbiturates Screen Not Detected (Not Detect) Ur Phencyclidine Scrn Not Detected (Not Detect) Ur Amphetamines Screen Not Detected (Not Detect) U Benzodiazepines Scrn Not Detected (Not Detect) Urine Cocaine Screen Not Detected (Not Detect) U Marijuana (THC) Screen Not Detected (Not Detect) Ethyl Alcohol mg/dL COVID-19 (TRUDY) Negative (Negative) COVID-19 Clin Com See Note 12/17/22 12/17/22 12/17/22 Range/Units 03:39 03:44 03:44 WBC 5.1 (4.8-10.8) X10*3/uL RBC 4.14 L (4.20-5.50) X10*6/uL Hgb 12.5 (12.0-16.0) g/dl Hct 38.2 (37.0-47.0) % MCV 92.3 (80.0-98.0) fL MCH 30.2 (27.0-33.0) pg MCHC 32.7 (31.0-35.0) g/dl RDW 13.0 (11.0-16.0) % Plt Count 289 (160-400) X10*3/uL MPV 9.7 (9.4-12.3) fL Immature Gran % (Auto) 0.2 (0.0-0.4) % Neut % (Auto) 46.5 (45-73) % Lymph % (Auto) 42.2 H (20-40) % [place] % (Auto) 9.3 (2-11) % Eos % (Auto) 1.4 (0-4) % Baso % (Auto) 0.4 (0-2) % Lymph # (Auto) 2.1 (1.2-4.9) X10*3/uL [place] # (Auto) 0.5 (0.1-1.2) X10*3/uL Eos # (Auto) 0.1 (0.0-0.4) X10*3/uL Baso # (Auto) 0.0 (0.0-0.2) X10*3/uL Abs Immat Gran (auto) 0.01 (0.00-0.03) X10*3/uL Absolute Neuts (auto) 2.4 (2.0-8.3) x10*3/uL Absolute Nucleated RBC 0.000 (0.0-0.012) X10*3/uL Nucleated RBC % (auto) 0.0 (0.0-0.2) /100WBC Sodium 141 (135-145) mmol/L Potassium 3.4 (3.3-5.1) mmol/L Chloride 105 (96-108) mmol/L Carbon Dioxide 24 (22-29) mmol/L Anion Gap 15 (12-20) BUN 10 (9-16) mg/dL Creatinine 1.14 (0.5-1.4) mg/dL Estim Creat Clear Calc 77.0 Estimated GFR 56 Random Glucose 82 (60-115) mg/dL Calcium 9.2 (8.4-10.2) mg/dL Total Bilirubin 0.7 (0.0-1.0) mg/dL AST 48 H (5-31) U/L ALT 35 H (0-31) U/L Alkaline Phosphatase 65 (39-117) U/L Total Protein 7.0 (6.5-8.0) g/dL Albumin 4.1 (3.5-5.0) g/dL Urine Color Yellow Urine Appearance Cloudy Urine pH 5.5 (5.0-9.0) Ur Specific [place] >= 1.030 H (1.005-1.025) Urine Protein 30 (1+) H (Neg-Trace) mg/dL Urine Glucose (UA) Negative (Negative) mg/dL Urine Ketones 40 (Negative) mg/dL Urine Blood Negative (Negative) Urine Nitrite Negative (Negative) Ur Leukocyte Esterase Small (1+) H (Negative) Urine RBC 6-10 H (0-2) /HPF Urine WBC 11-20 H (0-5) /HPF Ur Squamous Epith Cells 3-5 (0-2) /HPF Calcium Oxalate Crystal Present Urine Bacteria None Seen (None Seen) Hyaline Casts 3-5 (0-2) /LPF Urine Test (NEGATIVE) Urine Opiates Screen (Not Detect) Urine Fentanyl Screen (Not Detect) Ur Barbiturates Screen (Not Detect) Ur Phencyclidine Scrn (Not Detect) Ur Amphetamines Screen (Not Detect) U Benzodiazepines Scrn (Not Detect) Urine Cocaine Screen (Not Detect) U Marijuana (THC) Screen (Not Detect) Ethyl Alcohol < 10 mg/dL COVID-19 (TRUDY) (Negative) COVID-19 Clin Com Discharge Plan Discharge Clinical Impression: Schizoaffective disorder, bipolar type, Urinary tract infection Patient Disposition: Still a Patient Prescriptions: No Action testosterone cypionate 200 mg/mL oil 80 mg subcut QWEEK Interventions: [place]-Suicide Risk Severity Scale Last Done: 12/17/22 03:38
--- NOTE | 2022-12-17 05:55 | PC.NURSE ---
Patient is in his room sitting quietly, no distress observed/reported, thought content paranoid, thought process tangential and hyperverbal, patient is schizoaffective bipolar type not on any medication, patient was discharged from [facility] on 12.08.22 with no medication, care consult ordered/pending evaluation, behavior non concerning, will continue to monitor.
[2022-12-17 14:00] VITALS: BP 120/75; PULSE 86; RESP 20; TEMP 37.1; O2SAT 98
--- NOTE | 2022-12-17 14:02 | PC.NURSE ---
Pt has been dancing and singing in their room throughout the day, good spirits. Pt compliant to taking medications, ate all meals 100%. VSS, will CTM
[2022-12-17 20:15] VITALS: BP 114/68; PULSE 94; TEMP 36.2
--- NOTE | 2022-12-18 01:01 | PC.ADMIT ---
An -[place] transgender male aged 32 years who uses He/him pronouns [facility]04 as [facility] CV following [place] [facility] [place]. Pt has a number of inpatient psychiatric hospitalizations and was previously on [facility] in late October with a similar presentation. [place] [facility] [place] following police report of pt wandering the streets and behaving strangely. In ED pt presented with symptoms of kirsten tangential speech, hyper verbal, and grandiose speech. Pt denied SI/HI in ED, but is reported to have history of suicide attempts. CARE team reports pt has history of substance use, aggression and medication non-adherence. REAL and BAL were negative. During admission assessment pt was unable to sign legal documents due to his mental status. Pt presented with pressured speech, repetitive disconnected thoughts. Pt was very hyperverbal, moving, singing and dancing most of the time. Pt denies pain, depression/ anxiety, SI/HI, AH/VH. Pt mentioned Courtney German, Enmanuel Francisco and angeljosiah repeatedly in conversation. Pt is religiously preoccupied. Pt has only one verified medication at this time, testosterone that he takes weekly, but is unable to say what day he takes it or when his last dose was. Additionally Pt was unable to say if this POM could be brought in from his apartment. Pt lives in a [facility] funded apartment, and has a therapist, PCP and psychopharmacology provider. Medical issues include only an UTI for which he is prescribed Ceftin BID. Pt is pacing in tobar singing to self and dancing at this time. Pt requires frequent prompts to not wake peers. [id number] done, admission orders obtained, treatment plan done. Pt was unable to participate in Safety Tool due to mental status.
[2022-12-18 06:00] VITALS: RESP 18; TEMP 36.8
--- NOTE | 2022-12-18 10:32 | HO.PSYADMNOT ---
HPI Date of Service: 12/18/22 Chief Complaint: kirsten Sources of Information: patient interviewed, chart reviewed and crisis/core team assessment reviewed HPI Subjective Notes: Henderson Warning and Conditional Voluntary Narrative: 32 yo male (transgender F-M - prefers he and his pronouns) found by the police wandering in the street and acting strangely; he was brought to ED by police; patient had a recent brief admission in November 2022. He was also on M5 in November 2020. patient is not compliant with psych medication. He has a history of being paranoid towards neighbors, irritable, reporting homicidal ideation with plan to shoot mother and then shoot himself past. Pt also has history of presenting with impulsive behaviors such traveling places with no way of returning home without assistance from parents. Pt has not received psychiatric treatment for several months. He refused meds inMay 2022. In November 2020 he was stabilized on abilify and switched to MENDES prior to discharge Past Psychiatric History: [place] [facility] [place] m5 1 years ago, started on meds, reportedly did well other inpatients admissions hx of childhood trauma, not discussed Medical Evaluation Reviewed: Yes Current UTI on ceftin medically cleared in ED [facility] Narrative: UTI Surgical History Hx of colonoscopy Family History: parents involved Social History: lives alone Substance History: tox screen in ED negative Trauma History: childhood- not discussed Diagnostics Vital Signs (24Hr): Vital Signs - 24 hr 12/17/22 14:00 12/17/22 20:15 12/18/22 06:00 Temperature 98.8 F 97.1 F 98.2 F Pulse Rate 86 94 Respiratory Rate 20 18 Blood Pressure 120/75 114/68 Pulse Oximetry 98 Oxygen Delivery Method Room Air BMI result Body Mass Index 29.0 Labs 12/17/22 03:44 12/17/22 03:44 Labs: Laboratory Results - last 48 hr 12/17/22 12/17/22 12/17/22 03:39 03:39 03:39 WBC RBC Hgb Hct MCV MCH MCHC RDW Plt Count MPV Immature Gran % (Auto) Neut % (Auto) Lymph % (Auto) Rich % (Auto) Eos % (Auto) Baso % (Auto) Lymph # (Auto) Rich # (Auto) Eos # (Auto) Baso # (Auto) Abs Immat Gran (auto) Absolute Neuts (auto) Absolute Nucleated RBC Nucleated RBC % (auto) Sodium Potassium Chloride Carbon Dioxide Anion Gap BUN Creatinine Estim Creat Clear Calc Estimated GFR Random Glucose Calcium Total Bilirubin AST ALT Alkaline Phosphatase Total Protein Albumin Urine Color Urine Appearance Urine pH Ur Specific [place] Urine Protein Urine Glucose (UA) Urine Ketones Urine Blood Urine Nitrite Ur Leukocyte Esterase Urine RBC Urine WBC Ur Squamous Epith Cells Calcium Oxalate Crystal Urine Bacteria Hyaline Casts Urine Test NEGATIVE Urine Opiates Screen Not Detected Urine Fentanyl Screen Not Detected Ur Barbiturates Screen Not Detected Ur Phencyclidine Scrn Not Detected Ur Amphetamines Screen Not Detected U Benzodiazepines Scrn Not Detected Urine Cocaine Screen Not Detected U Marijuana (THC) Screen Not Detected Ethyl Alcohol COVID-19 (TRUDY) Negative COVID-19 Clin Com See Note 12/17/22 12/17/22 12/17/22 03:39 03:44 03:44 WBC 5.1 RBC 4.14 L Hgb 12.5 Hct 38.2 MCV 92.3 MCH 30.2 MCHC 32.7 RDW 13.0 Plt Count 289 MPV 9.7 Immature Gran % (Auto) 0.2 Neut % (Auto) 46.5 Lymph % (Auto) 42.2 H Rich % (Auto) 9.3 Eos % (Auto) 1.4 Baso % (Auto) 0.4 Lymph # (Auto) 2.1 Rich # (Auto) 0.5 Eos # (Auto) 0.1 Baso # (Auto) 0.0 Abs Immat Gran (auto) 0.01 Absolute Neuts (auto) 2.4 Absolute Nucleated RBC 0.000 Nucleated RBC % (auto) 0.0 Sodium 141 Potassium 3.4 Chloride 105 Carbon Dioxide 24 Anion Gap 15 BUN 10 Creatinine 1.14 Estim Creat Clear Calc 77.0 Estimated GFR 56 Random Glucose 82 Calcium 9.2 Total Bilirubin 0.7 AST 48 H ALT 35 H Alkaline Phosphatase 65 Total Protein 7.0 Albumin 4.1 Urine Color Yellow Urine Appearance Cloudy Urine pH 5.5 Ur Specific [place] >= 1.030 H Urine Protein 30 (1+) H Urine Glucose (UA) Negative Urine Ketones 40 Urine Blood Negative Urine Nitrite Negative Ur Leukocyte Esterase Small (1+) H Urine RBC 6-10 H Urine WBC 11-20 H Ur Squamous Epith Cells 3-5 Calcium Oxalate Crystal Present Urine Bacteria None Seen Hyaline Casts 3-5 Urine Test Urine Opiates Screen Urine Fentanyl Screen Ur Barbiturates Screen Ur Phencyclidine Scrn Ur Amphetamines Screen U Benzodiazepines Scrn Urine Cocaine Screen U Marijuana (THC) Screen Ethyl Alcohol < 10 COVID-19 (TRUDY) COVID-19 Clin Com Meds/Allergies Meds Home Medications Medication Instructions Recorded Confirmed Type testosterone cypionate 200 mg/mL 80 mg subcut QWEEK 12/17/22 12/17/22 History intramuscular oil Allergies Allergies Allergy/AdvReac Type Severity Reaction Status Date / Time iodine [IODINE] Allergy Unknown ITCHING Verified 11/18/22 12:49 shellfish derived Allergy Unknown HIVES Verified 11/18/22 12:49 [SHELLFISH DERIVED] tree nut [TREE NUT] Allergy Unknown DIFFICULTY Verified 11/18/22 12:49 BREATHING DAIRY PRODUCTS Allergy Unknown STOMACH Uncoded 11/18/22 12:49 UPSET Mental Status Exam Mental Status Exam Narrative: pt disheveled; dressed in ill fitted shorts and tshirt. hygiene poor; body odor noted Pt disorganized ; oresenting with word salad; nonsensical most of the time with few brief more logical content; stating he needs to leave to go to gym and to [employer]. After 5-20 minutes pt tells me I am triggering him and he moves close invading my personal space and raised his hands close to my face; he is physically agitated and intermittently running in hallways; marginally responds to redirection; yelling, talking loudly, singing and whistling in hallway fro hours overnight and today. Denies hes taken meds in past; denies he has a psychiatrist; denies he needs help. Patient Appearance: Disheveled, Unkempt and Malodorous Level of Consciousness: Awake, Restless and Inappropriate Patient Behavior: Guarded, Posturing, Hyperactive, Suspicious, Restless, Anxious, Invasion - Personal Space, Uncooperative, Impulsive and Pacing Behavior Comments: dancing, twisting self on floor like break dancing loud, whistling, singing, verbalizing word salad Mood Description: Suspicious, Hostile, Anxious, Labile, Angry, Apprehensive and Expansive Affect Description: Suspicious, Anxious, Labile and Expansive Ability to Follow Directions: Poor Speech Pattern: Garbled, Spontaneous Speech, Rambling, Cofabulation, Rapid, Excessive, Animated, Loud and Pressured Memory Description: Remote Impaired, Immediate Impaired, Value Analysis Coordinator Impaired, Recent Impaired and Immediate Intact Hallucinations: None (unknown; unable to assess given mental status) Delusions: Being Controlled Thought Process: Incoherent Thought Content: positive for Disoriented, positive for Racing, positive for Loose Associations, positive for Tangential and positive for Disorganized Abnormal Motor Activity Signs and Symptoms: Agitation, Hyperactivity and Restlessness Judgement: Poor Judgement and Insight: no insight and poor judgment Assessment & Plan Assessment & Plan (1) Schizoaffective disorder, bipolar type: Status: Acute Code(s): F25.0 - Schizoaffective disorder, bipolar type (2) Urinary tract infection: Status: Acute Code(s): N39.0 - Urinary tract infection, site not specified (3) Bankart lesion of left shoulder: Status: Acute Code(s): S43.492A - Other sprain of left shoulder joint, initial encounter Plan 32 year old male with history of schizoaffective disorder bipolar type with kirsten and psychosis. In 2020, pt stabilized on abilify and successfully switch MENDES. He apparently did not stay in treatment; He is in need of hospital level of care at this time due to inability to function and self and other safety. He is currently on testosterone for F-M transition and the testosterone may be contributing to mental status changes and should be re-evaluated by endocrinology or outpatient provider Plan: admit to M5 CV and One to one for safety zydis 10 mg PO BID prn delusions, kirsten benadryl 50 mg BID prn anxiety start abilify 5 mg daily continue antibiotic for UTI Patient educated on: medication risk/benefits and therapeutic strategies Informed Consent: does not understand Reason for continued inpatient stay Substantial Risk for: harm to self, harm to others, inability to function and rapid decompensation Statement Statement: I have reviewed the history and physical and performed a pertinent examination on my patient. No changes have occurred unless specified. If the History and Physical was not performed prior to admission, the Hospitalist's service will be consulted for completing the admission physical. Time Spent With Patient Time: Total time managing care of this patient today ___60_ minutes.
[2022-12-18] MEDS: OLANZapine ODT 10 MG TAB.RAPDIS TRANSLINGU ×2 (10:40→19:18)
[2022-12-18] MEDS: diphenhydrAMINE HCL 25 MG CAPSULE 50 MG PO ×2 (10:40→19:18)
[2022-12-18] MEDS: ARIPiprazole 5 MG TABLET PO (11:10)
[2022-12-18 18:00] VITALS: BP 135/85; PULSE 88; TEMP 36.1; O2SAT 100
[2022-12-19] MEDS: ARIPiprazole 5 MG TABLET PO (08:32)
[2022-12-19 08:56] VITALS: BP 141/80; PULSE 80; RESP 16; TEMP 36; O2SAT 98
[2022-12-19] MEDS: Acetaminophen 325 MG TABLET 650 MG PO (11:02)
[2022-12-19] MEDS: OLANZapine ODT 10 MG TAB.RAPDIS TRANSLINGU ×2 (11:05→18:10)
[2022-12-19] MEDS: diphenhydrAMINE HCL 25 MG CAPSULE 50 MG PO ×2 (11:05→18:10)
--- NOTE | 2022-12-19 11:27 | P.PNPSI_ITS ---
Subjective Subjective Date of Service: 12/19/22 Reason For Visit: kirsten Subjective Notes: Henderson Warning and Conditional Voluntary Medical Problems Affecting Mental Status: No Interim History: pt taking meds; slightly less manic; less running and slightly less pressure, less hostility; still demanding, hyperverbal, singing and dancing, walking for hours, demanding at times. Medication Compliance: Yes Side effects from medications: No Attending Groups: No Review of Systems Acute medical concerns: No Medical Review of Systems: unchanged Review of Systems Review of Systems no changes Yes Unobtainable due to mental status Mental Status Exam Mental Status Exam Narrative: pt in hspital garb; hygiene poor; body odor noted Pt disorganized ; presenting with word salad; nonsensical most of the time with few brief more logical content;singing and dancing, pacing for much of the day, he is physically agitated amd constantly moving but less impulsive and no running in hallways; responds to redirection; singing, talking loudly, singing in hallway Taking meds despite stating he doesn't need them. Patient Appearance: Disheveled, Unkempt and Malodorous Level of Consciousness: Awake, Restless and Inappropriate Patient Behavior: Guarded, Posturing, Hyperactive, Suspicious, Restless, Anxious, Invasion - Personal Space, Uncooperative, Impulsive and Pacing Behavior Comments: dancing, twisting self on floor like break dancing loud, whistling, singing, verbalizing word salad Mood Description: Suspicious, Hostile, Anxious, Labile, Angry, Apprehensive and Expansive Affect Description: Suspicious, Anxious, Labile and Expansive Ability to Follow Directions: Poor Speech Pattern: Garbled, Spontaneous Speech, Rambling, Cofabulation, Rapid, Excessive, Animated, Loud and Pressured Memory Description: Remote Impaired, Immediate Impaired, Residential Mortgage Manager Impaired, Recent Impaired and Immediate Intact Diagnostics Vital Signs (24Hr): Vital Signs - 24 hr 12/18/22 18:00 12/19/22 08:56 Temperature 97.0 F 96.8 F Pulse Rate 88 80 Respiratory Rate 16 Blood Pressure 135/85 141/80 H Pulse Oximetry 100 98 Oxygen Delivery Method Room Air Room Air BMI result Body Mass Index 29.0 Labs 12/17/22 03:44 12/17/22 03:44 Medications Medications Current Medications Acetaminophen (Acetaminophen 325 Mg Tablet) 650 mg PO Q6H PRN PRN Reason: Headache/Pain Mild Scale (1-3) Last Admin: 12/19/22 11:02 Dose: 650 mg Al Hydroxide/Mg Hydroxide (Magnesium Hydrox/Alum Hydrox 30 Ml Oral.Susp) 30 ml PO Q6H PRN PRN Reason: Heartburn/Nausea Aripiprazole (Aripiprazole 5 Mg Tablet) 5 mg PO DAILY FIFI Last Admin: 12/19/22 08:32 Dose: 5 mg Cefuroxime Axetil (Cefuroxime Axetil 500 Mg Tablet) 500 mg PO BID FIFI Last Admin: 12/19/22 08:32 Dose: 500 mg Diphenhydramine HCl (Diphenhydramine Hcl 25 Mg Capsule) 50 mg PO Q6H PRN PRN Reason: anxiety, agitation Last Admin: 12/19/22 11:05 Dose: 50 mg Magnesium Hydroxide (Milk Of Magnesia 30 Ml Oral.Susp) 30 ml PO DAILY PRN PRN Reason: Constipation Non-Formulary Medication (Testosterone Cypionate) 80 mg SUBCUT Fr FIFI Olanzapine (Olanzapine Odt 10 Mg Tab.Rapdis) 10 mg TRANSLINGU BID PRN PRN Reason: paranoia, delusion, kirstne Last Admin: 12/19/22 11:05 Dose: 10 mg Trazodone HCl (Trazodone Hcl 50 Mg Tablet) 50 mg PO BEDTIME MRX1 PRN PRN Reason: Insomnia Allergies Allergies Allergy/AdvReac Type Severity Reaction Status Date / Time iodine [IODINE] Allergy Unknown ITCHING Verified 11/18/22 12:49 shellfish derived Allergy Unknown HIVES Verified 11/18/22 12:49 [SHELLFISH DERIVED] tree nut [TREE NUT] Allergy Unknown DIFFICULTY Verified 11/18/22 12:49 BREATHING DAIRY PRODUCTS Allergy Unknown STOMACH Uncoded 11/18/22 12:49 UPSET Assessment & Plan Assessment & Plan (1) Schizoaffective disorder, bipolar type: Status: Acute Code(s): F25.0 - Schizoaffective disorder, bipolar type (2) Urinary tract infection: Status: Acute Code(s): N39.0 - Urinary tract infection, site not specified (3) Bankart lesion of left shoulder: Status: Acute Code(s): S43.492A - Other sprain of left shoulder joint, initial encounter Plan 32 year old male with history of schizoaffective disorder bipolar type with kirsten and psychosis. In 2020, pt stabilized on abilify and successfully switch MENDES. He apparently did not stay in treatment; He is in need of hospital level of care at this time due to inability to function and self and other safety. He is currently on testosterone for F-M transition and the testosterone may be contributing to mental status changes and should be re-evaluated by endocrinology or outpatient provider Plan: admit to M5 CV and One to one for safety zydis 10 mg PO BID prn delusions, kirsten benadryl 50 mg BID prn anxiety start abilify 5 mg daily -titrate as tolerated and consider MENDES after care planning when able to participate continue antibiotic for UTI Reason for continued inpatient stay Substantial Risk for: harm to self, harm to others, inability to function and rapid decompensation Time Spent With Patient Time: Total time managing care of this patient today ____ minutes.
[2022-12-19 18:00] VITALS: BP 128/82; PULSE 78; RESP 16; TEMP 36; O2SAT 97
[2022-12-20] MEDS: ARIPiprazole 5 MG TABLET PO (08:19)
[2022-12-20 08:20] VITALS: BP 131/65; PULSE 77; RESP 16; TEMP 36.4; O2SAT 98
--- NOTE | 2022-12-20 10:12 | HO.PSYCHPN ---
Subjective Subjective Date of Service: 12/20/22 Reason For Visit: kirsten Interim History: Met with patient; discussed with team Patient had challenging weekend and remains on a one-to-one being and had again a stick towards others, posturing with staff, intrusiveness Patient remains manic and hyperverbal with disorganized speech and behavior, singing to self or loud, breaking in a song in the middle of a conversation. Precision Farming Specialist is unable to follow patient's discourse as patient is rambling from topic to unrelated topic talking very quickly; frequent references to the . Denies SI. Does not agree with assessment that patient is having a manic episode. Regarding medications patient does not feel the need for medications, though has been taking Abilify on the unit. Mental Status Exam Mental Status Exam Narrative: Pt is alert and oriented; behavior manic and disorganized; can be intermittently cooperative but also intrusive or antagonistic with others; patient is not in distress; dressed in casual attire with unkempt hair but adequate hygiene; mood is described as good and affect expansive; eye contact appropriate; Speech is pressured and hyperverbal; normal volume; psychomotor agitation present; thought process is disorganized quickly jumping from unrelated topic to unrelated topic; Thought content is many disconnected thoughts with grandiose delusional believes and mostly not pertinent to relevant topics; denies any SI/HI. Unclear if internally preoccupied Patients insight and judgment impaired Diagnostics Vital Signs (24Hr): Vital Signs - 24 hr 12/19/22 18:00 12/20/22 08:20 Temperature 96.8 F 97.6 F Pulse Rate 78 77 Respiratory Rate 16 16 Blood Pressure 128/82 131/65 Pulse Oximetry 97 98 Oxygen Delivery Method Room Air Room Air BMI result Body Mass Index 29.0 Labs 12/17/22 03:44 12/17/22 03:44 Medications Medications Current Medications Acetaminophen (Acetaminophen 325 Mg Tablet) 650 mg PO Q6H PRN PRN Reason: Headache/Pain Mild Scale (1-3) Last Admin: 12/19/22 11:02 Dose: 650 mg Al Hydroxide/Mg Hydroxide (Magnesium Hydrox/Alum Hydrox 30 Ml Oral.Susp) 30 ml PO Q6H PRN PRN Reason: Heartburn/Nausea Aripiprazole (Aripiprazole 10 Mg Tablet) 10 mg PO DAILY FIFI Cefuroxime Axetil (Cefuroxime Axetil 500 Mg Tablet) 500 mg PO BID FIFI Last Admin: 12/20/22 08:18 Dose: 500 mg Diphenhydramine HCl (Diphenhydramine Hcl 25 Mg Capsule) 50 mg PO Q6H PRN PRN Reason: anxiety, agitation Last Admin: 12/19/22 18:10 Dose: 50 mg Magnesium Hydroxide (Milk Of Magnesia 30 Ml Oral.Susp) 30 ml PO DAILY PRN PRN Reason: Constipation Non-Formulary Medication (Testosterone Cypionate) 80 mg SUBCUT Fr FIFI Olanzapine (Olanzapine Odt 10 Mg Tab.Rapdis) 10 mg TRANSLINGU BID PRN PRN Reason: paranoia, delusion, kirsten Last Admin: 12/19/22 18:10 Dose: 10 mg Trazodone HCl (Trazodone Hcl 50 Mg Tablet) 50 mg PO BEDTIME MRX1 PRN PRN Reason: Insomnia Allergies Allergies Allergy/AdvReac Type Severity Reaction Status Date / Time iodine [IODINE] Allergy Unknown ITCHING Verified 11/18/22 12:49 shellfish derived Allergy Unknown HIVES Verified 11/18/22 12:49 [SHELLFISH DERIVED] tree nut [TREE NUT] Allergy Unknown DIFFICULTY Verified 11/18/22 12:49 BREATHING DAIRY PRODUCTS Allergy Unknown STOMACH Uncoded 11/18/22 12:49 UPSET Assessment & Plan Assessment & Plan (1) Schizoaffective disorder, bipolar type: Status: Acute Code(s): F25.0 - Schizoaffective disorder, bipolar type (2) Urinary tract infection: Status: Acute Code(s): N39.0 - Urinary tract infection, site not specified (3) Bankart lesion of left shoulder: Status: Acute Code(s): S43.492A - Other sprain of left shoulder joint, initial encounter Plan 32 year old male with history of schizoaffective disorder bipolar type with kirsten and psychosis. In 2020, pt stabilized on abilify and successfully switch MENDES. He apparently did not stay in treatment; He is in need of hospital level of care at this time due to inability to function and self and other safety. He is currently on testosterone for F-M transition and the testosterone may be contributing to mental status changes and should be re-evaluated by endocrinology or outpatient provider Hospital course: / over the weekend patient provocative, antagonistic and posturing towards staff. Disorganized speech behavior. Remains without any insight and manic. Plan: CV 1:1 for safety given an attack in his stick and posturing interactions with peers/staff INCREASE Abilify to 10 mg; patient tolerated in the past and got on long-acting injectable. Zydis 10 mg PO BID prn delusions, kirsten benadryl 50 mg BID prn anxiety after care planning when able to participate continue antibiotic for UTI Patient educated on: diagnosis and medication risk/benefits Informed Consent: does not understand Reason for continued inpatient stay Substantial Risk for: inability to function Time Spent With Patient Time: Total time managing care of this patient today ____ minutes.
[2022-12-20] MEDS: OLANZapine ODT 10 MG TAB.RAPDIS TRANSLINGU ×2 (11:32→16:27)
[2022-12-20] MEDS: diphenhydrAMINE HCL 25 MG CAPSULE 50 MG PO ×2 (11:33→16:26)
--- NOTE | 2022-12-20 13:22 | PC.NURSE ---
pt refused once time dose of Abilify 5mg. (Current order Abilify 5mg daily. New order is to start 12/21 for Abilify 10mg daily) I'm just gonna stick to what I took this morning, thank you, were done now . Provider EL notified.
[2022-12-20] MEDS: Acetaminophen 325 MG TABLET 650 MG PO (16:50)
--- NOTE | 2022-12-21 09:39 | P.PNPSI_ITS ---
Subjective Subjective Date of Service: 12/21/22 Reason For Visit: kirsten Subjective Notes: Henderson Warning and Conditional Voluntary Medical Problems Affecting Mental Status: No Interim History: Patient seen case reviewed with treatment team. Patient remains somewhat manic and intrusive but perhaps somewhat less so does not feel that they need ongoing treatment. Has been taking Abilify 10 mg Side effects from medications: No Attending Groups: No Review of Systems Acute medical concerns: No Medical Review of Systems: unchanged Mental Status Exam Mental Status Exam Narrative: . Patient Appearance: Disheveled and Unkempt Level of Consciousness: Awake, Restless and Inappropriate Patient Behavior: Guarded, Posturing, Hyperactive, Suspicious, Restless, Anxious, Invasion - Personal Space and Pacing Behavior Comments: dancing, twisting self on floor like break dancing loud, whistling, singing, verbalizing word salad Mood Description: Suspicious, Anxious, Labile, Angry, Apprehensive and Expansive Affect Description: Suspicious, Anxious, Labile and Expansive Ability to Follow Directions: Poor Speech Pattern: Garbled, Spontaneous Speech, Rambling, Cofabulation, Rapid, Excessive, Animated, Loud and Pressured Memory Description: Remote Impaired, Immediate Impaired, Tetryl Boiling Tub Operator Impaired, Recent Impaired and Immediate Intact Thought Content: positive for Racing Judgement and Insight: Patient intrusive verbally hostile at times not combative physically has been accepting Abilify refusing IM long-acting Diagnostics Vital Signs (24Hr): BMI result Body Mass Index 29.0 Labs 12/17/22 03:44 12/17/22 03:44 Medications Medications Current Medications Acetaminophen (Acetaminophen 325 Mg Tablet) 650 mg PO Q6H PRN PRN Reason: Headache/Pain Mild Scale (1-3) Last Admin: 12/20/22 16:50 Dose: 650 mg Al Hydroxide/Mg Hydroxide (Magnesium Hydrox/Alum Hydrox 30 Ml Oral.Susp) 30 ml PO Q6H PRN PRN Reason: Heartburn/Nausea Aripiprazole (Aripiprazole 10 Mg Tablet) 10 mg PO DAILY FIFI Cefuroxime Axetil (Cefuroxime Axetil 500 Mg Tablet) 500 mg PO BID FIFI Last Admin: 12/20/22 22:13 Dose: 500 mg Diphenhydramine HCl (Diphenhydramine Hcl 25 Mg Capsule) 50 mg PO Q6H PRN PRN Reason: anxiety, agitation Last Admin: 12/20/22 16:26 Dose: 50 mg Magnesium Hydroxide (Milk Of Magnesia 30 Ml Oral.Susp) 30 ml PO DAILY PRN PRN Reason: Constipation Non-Formulary Medication (Testosterone Cypionate) 80 mg SUBCUT Fr FIFI Olanzapine (Olanzapine Odt 10 Mg Tab.Rapdis) 10 mg TRANSLINGU BID PRN PRN Reason: paranoia, delusion, kirsten Last Admin: 12/20/22 16:27 Dose: 10 mg Trazodone HCl (Trazodone Hcl 50 Mg Tablet) 50 mg PO BEDTIME MRX1 PRN PRN Reason: Insomnia Allergies Allergies Allergy/AdvReac Type Severity Reaction Status Date / Time tree nut [TREE NUT] Allergy Severe Difficulty Verified 12/21/22 08:55 Breathing iodine [IODINE] Allergy Unknown Itching Verified 12/21/22 08:55 shellfish derived Allergy Unknown Hives Verified 12/21/22 08:55 [SHELLFISH DERIVED] DAIRY PRODUCTS AdvReac Unknown Stomach Uncoded 12/21/22 08:55 Upset Assessment & Plan Assessment & Plan (1) Schizoaffective disorder, bipolar type: Status: Acute Code(s): F25.0 - Schizoaffective disorder, bipolar type (2) Urinary tract infection: Status: Acute Code(s): N39.0 - Urinary tract infection, site not specified (3) Bankart lesion of left shoulder: Status: Acute Code(s): S43.492A - Other sprain of left shoulder joint, initial encounter Plan 32 year old male with history of schizoaffective disorder bipolar type with kirsten and psychosis. In 2020, pt stabilized on abilify and successfully switch MENDES. He apparently did not stay in treatment; He is in need of hospital level of care at this time due to inability to function and self and other safety. He is currently on testosterone for F-M transition and the testosterone may be contributing to mental status changes and should be re-evaluated by endocrinology or outpatient provider Hospital course: 6/5 over the weekend patient provocative, antagonistic and posturing towards staff. Disorganized speech behavior. Remains without any insight and manic. Plan: CV 1:1 for safety given an attack in his stick and posturing interactions with peers/staff INCREASE Abilify to 10 mg; patient tolerated in the past and got on long-acting injectable. Zydis 10 mg PO BID prn delusions, kirsten benadryl 50 mg BID prn anxiety after care planning when able to participate continue antibiotic for UTI 12/21/22 Has 3 day in continue Abilify 10 mg encourage therapeutic [place] in compliance with outpatient treatment Reason for continued inpatient stay Substantial Risk for: inability to function and rapid decompensation Time Spent With Patient Time: Total time managing care of this patient today ____ minutes.
[2022-12-21] MEDS: ARIPiprazole 10 MG TABLET PO (12:51)
[2022-12-21 13:58] VITALS: BP 160/89; PULSE 116; RESP 18; TEMP 36.9; O2SAT 97
[2022-12-21] MEDS: OLANZapine ODT 10 MG TAB.RAPDIS TRANSLINGU (14:48)
[2022-12-21] MEDS: diphenhydrAMINE HCL 25 MG CAPSULE 50 MG PO (16:16)
[2022-12-22 06:00] VITALS: BP 134/96; PULSE 107; RESP 18; TEMP 37.6; O2SAT 95
[2022-12-22] MEDS: ARIPiprazole 10 MG TABLET PO (09:42)
[2022-12-22] MEDS: OLANZapine ODT 10 MG TAB.RAPDIS TRANSLINGU ×2 (10:00→16:14)
[2022-12-22] MEDS: diphenhydrAMINE HCL 25 MG CAPSULE 50 MG PO ×2 (10:00→16:14)
--- NOTE | 2022-12-22 10:45 | P.PNPSI_ITS ---
Subjective Subjective Date of Service: 12/22/22 Reason For Visit: kirsten Subjective Notes: Conditional Voluntary Interim History: Pt reports he is here on the unit because he was bit by bug. He reports people are after him. He reports he can't trust anyone outside or here on the unit. He reports he is suspicious of medications but in agreement to continue taking a ntibiotic and abilify. Pt denies SI/HI. Labile, but less intrusive. Per nursing, pt slept through the night. Mental Status Exam Mental Status Exam Narrative: Appearance: casually groomed, good hygiene, in NAD Behavior: initially somewhat guarded, later more cooperative Psychomotor: no agitation or retardation noted Speech: clear, hyperverbal (difficult to interrupt), pressured, spontaneous TP: disorganized TC: some paranoia and suspiciousness towards neighbors medications, additional medical treatments Mood: anxious Affect: expansive SI: denies HI: denies VH/AH: denies Delusions: paranoid ideas towards neighbors, government trying to steal his blood Cog/memory: alert, oriented x 3. poor attention Diagnostics Vital Signs (24Hr): Vital Signs - 24 hr 12/21/22 13:58 12/22/22 06:00 Temperature 98.4 F 99.6 F Pulse Rate 116 H 107 H Respiratory Rate 18 18 Blood Pressure 160/89 H 134/96 H Pulse Oximetry 97 95 Oxygen Delivery Method Room Air Room Air BMI result Body Mass Index 29.0 Labs 12/17/22 03:44 12/17/22 03:44 Medications Medications Current Medications Acetaminophen (Acetaminophen 325 Mg Tablet) 650 mg PO Q6H PRN PRN Reason: Headache/Pain Mild Scale (1-3) Last Admin: 12/20/22 16:50 Dose: 650 mg Al Hydroxide/Mg Hydroxide (Magnesium Hydrox/Alum Hydrox 30 Ml Oral.Susp) 30 ml PO Q6H PRN PRN Reason: Heartburn/Nausea Aripiprazole (Aripiprazole 10 Mg Tablet) 10 mg PO DAILY [facility] Last Admin: 12/22/22 09:42 Dose: 10 mg Cefuroxime Axetil (Cefuroxime Axetil 500 Mg Tablet) 500 mg PO BID [facility] Last Admin: 12/22/22 09:42 Dose: 500 mg Diphenhydramine HCl (Diphenhydramine Hcl 25 Mg Capsule) 50 mg PO Q6H PRN PRN Reason: anxiety, agitation Last Admin: 12/22/22 10:00 Dose: 50 mg Magnesium Hydroxide (Milk Of Magnesia 30 Ml Oral.Susp) 30 ml PO DAILY PRN PRN Reason: Constipation Non-Formulary Medication (Testosterone Cypionate) 80 mg SUBCUT Fr FIFI Olanzapine (Olanzapine Odt 10 Mg Tab.Rapdis) 10 mg TRANSLINGU BID PRN PRN Reason: paranoia, delusion, kirsten Last Admin: 12/22/22 10:00 Dose: 10 mg Trazodone HCl (Trazodone Hcl 50 Mg Tablet) 50 mg PO BEDTIME MRX1 PRN PRN Reason: Insomnia Allergies Allergies Allergy/AdvReac Type Severity Reaction Status Date / Time tree nut [TREE NUT] Allergy Severe Difficulty Verified 12/21/22 08:55 Breathing iodine [IODINE] Allergy Unknown Itching Verified 12/21/22 08:55 shellfish derived Allergy Unknown Hives Verified 12/21/22 08:55 [SHELLFISH DERIVED] DAIRY PRODUCTS AdvReac Unknown Stomach Uncoded 12/21/22 08:55 Upset Assessment & Plan Assessment & Plan (1) Schizoaffective disorder, bipolar type: Status: Acute Code(s): F25.0 - Schizoaffective disorder, bipolar type (2) Urinary tract infection: Status: Acute Code(s): N39.0 - Urinary tract infection, site not specified (3) Bankart lesion of left shoulder: Status: Acute Code(s): S43.492A - Other sprain of left shoulder joint, initial encounter Plan 32 year old male with history of schizoaffective disorder bipolar type with kirsten and psychosis. In 2020, pt stabilized on abilify and successfully switch MENDES. He apparently did not stay in treatment; He is in need of hospital level of care at this time due to inability to function and self and other safety. He is currently on testosterone for F-M transition and the testosterone may be contributing to mental status changes and should be re-evaluated by endocrinology or outpatient provider Hospital course: / over the weekend patient provocative, antagonistic and posturing towards staff. Disorganized speech behavior. Remains without any insight and manic. Plan: CV 1:1 for safety given an attack in his stick and posturing interactions with peers/staff INCREASE Abilify to 10 mg; patient tolerated in the past and got on long-acting injectable. Zydis 10 mg PO BID prn delusions, kirsten benadryl 50 mg BID prn anxiety after care planning when able to participate continue antibiotic for UTI 12/21/22 Has 3 day in continue Abilify 10 mg encourage therapeutic [place] in compliance with outpatient treatment 12/22 continue current medications. Reason for continued inpatient stay Substantial Risk for: inability to function Time Spent With Patient Time: Total time managing care of this patient today ____ minutes.
[2022-12-22 19:00] VITALS: BP 137/77; PULSE 103; TEMP 36.6; O2SAT 97
--- NOTE | 2022-12-23 08:23 | P.PNPSI_ITS ---
Subjective Subjective Date of Service: 12/23/22 Reason For Visit: kirsten Interim History: met with patient; discussed with team pt remains manic and disorganized in speech and behavior. 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 Pt repeats that she was stung by a bug, sucked out the poison; references comes up a lot. Pt not sleeping; however, not so much antagonistic w/ others Asks for discharge and signed a 3 day notice refuses depakote however wiling to continue with abilify Mental Status Exam Mental Status Exam Narrative: Pt is alert and oriented; behavior manic and disorganized; can be intermittently cooperative but also intrusive with others; patient is not in distress; dressed in casual attire with unkempt hair but adequate hygiene; mood is described as good and affect expansive; eye contact appropriate; Speech is pressured and hyperverbal; normal volume; psychomotor agitation present; thought process is disorganized quickly jumping from unrelated topic to unrelated topic; Thought content is of many disconnected thoughts with grandiose delusional beliefs; basim es any SI/HI. Unclear if internally preoccupied Patients insight and judgment impaired Diagnostics Vital Signs (24Hr): Vital Signs - 24 hr 12/22/22 19:00 Temperature 97.9 F Pulse Rate 103 H Blood Pressure 137/77 Pulse Oximetry 97 Oxygen Delivery Method Room Air BMI result Body Mass Index 29.0 Labs 12/17/22 03:44 12/17/22 03:44 Medications Medications Current Medications Acetaminophen (Acetaminophen 325 Mg Tablet) 650 mg PO Q6H PRN PRN Reason: Headache/Pain Mild Scale (1-3) Last Admin: 12/20/22 16:50 Dose: 650 mg Al Hydroxide/Mg Hydroxide (Magnesium Hydrox/Alum Hydrox 30 Ml Oral.Susp) 30 ml PO Q6H PRN PRN Reason: Heartburn/Nausea Aripiprazole (Aripiprazole 10 Mg Tablet) 10 mg PO DAILY [facility] Last Admin: 12/22/22 09:42 Dose: 10 mg Cefuroxime Axetil (Cefuroxime Axetil 500 Mg Tablet) 500 mg PO BID [facility] Last Admin: 12/22/22 20:25 Dose: 500 mg Diphenhydramine HCl (Diphenhydramine Hcl 25 Mg Capsule) 50 mg PO Q6H PRN PRN Reason: anxiety, agitation Last Admin: 12/22/22 16:14 Dose: 50 mg Magnesium Hydroxide (Milk Of Magnesia 30 Ml Oral.Susp) 30 ml PO DAILY PRN PRN Reason: Constipation Non-Formulary Medication (Testosterone Cypionate) 80 mg SUBCUT Fr FIFI Olanzapine (Olanzapine Odt 10 Mg Tab.Rapdis) 10 mg TRANSLINGU BID PRN PRN Reason: paranoia, delusion, kirsten Last Admin: 12/22/22 16:14 Dose: 10 mg Trazodone HCl (Trazodone Hcl 50 Mg Tablet) 50 mg PO BEDTIME MRX1 PRN PRN Reason: Insomnia Allergies Allergies Allergy/AdvReac Type Severity Reaction Status Date / Time tree nut [TREE NUT] Allergy Severe Difficulty Verified 12/21/22 08:55 Breathing iodine [IODINE] Allergy Unknown Itching Verified 12/21/22 08:55 shellfish derived Allergy Unknown Hives Verified 12/21/22 08:55 [SHELLFISH DERIVED] [employer] AdvReac Unknown Stomach Uncoded 12/21/22 08:55 Upset Assessment & Plan Assessment & Plan (1) Schizoaffective disorder, bipolar type: Status: Acute Code(s): F25.0 - Schizoaffective disorder, bipolar type (2) Urinary tract infection: Status: Acute Code(s): N39.0 - Urinary tract infection, site not specified (3) Bankart lesion of left shoulder: Status: Acute Code(s): S43.492A - Other sprain of left shoulder joint, initial encounter Plan 32 year old male with history of schizoaffective disorder bipolar type with kirsten and psychosis. In 2020, pt stabilized on abilify and successfully switch MENDES. He apparently did not stay in treatment; He is in need of hospital level of care at this time due to inability to function and self and other safety. He is currently on testosterone for F-M transition and the testosterone may be contributing to mental status changes and should be re-evaluated by endocrinology or outpatient provider Hospital course: 12/20 over the weekend patient provocative, antagonistic and posturing towards staff. Disorganized speech behavior. Remains without any insight and manic. 12/21 continue Abilify 10 mg encourage therapeutic [place] in compliance with outpatient treatment 12/22 continue current medications. 12/23 3 day signed; increase abilify to 30mg; pt remains floridly manic, w/out insight, but willing to take abilify which has been effective and has tolerated in past Plan: 3 day can likely come off 1:1 as has not recently been antagonistic INCREASE Abilify to 30 mg; patient tolerated in the past and got on long-acting injectable. Zydis 10 mg PO BID prn delusions, kirsten benadryl 50 mg BID prn anxiety after care planning when able to participate continue antibiotic for UTI Patient educated on: diagnosis and medication risk/benefits Informed Consent: further education needed Reason for continued inpatient stay Substantial Risk for: inability to function Time Spent With Patient Time: Total time managing care of this patient today ____ minutes.
[2022-12-24] MEDS: diphenhydrAMINE HCL 25 MG CAPSULE 50 MG PO (00:07)
[2022-12-24] MEDS: OLANZapine ODT 10 MG TAB.RAPDIS TRANSLINGU (00:08)
--- NOTE | 2022-12-24 09:22 | HO.PSYCHPN ---
Subjective Subjective Date of Service: 12/24/22 Reason For Visit: kirsten Interim History: Met with patient; discussed with team Patient remains manic however for the brief is to moment, had a relatively logical interaction has patient asked how writers day was, said his was fine and hoped it would continue to be so. Patient talked about leaving some time next week for september. Slept a little bit overnight which is an improvement Mental Status Exam Mental Status Exam Narrative: Pt is alert and oriented; behavior manic and disorganized; can be intermittently cooperative but also intrusive with others; patient is not in distress; dressed in casual attire with unkempt hair but adequate hygiene; mood is described as good and affect expansive; eye contact appropriate; Speech is pressured and hyperverbal; normal volume; psychomotor agitation present; thought process is disorganized quickly jumping from unrelated topic to unrelated topic; Thought content is of many disconnected thoughts with grandiose delusional beliefs; denies any SI/HI. Unclear if internally preoccupied Patients insight and judgment impaired Diagnostics Vital Signs (24Hr): BMI result Body Mass Index 29.0 Labs 12/17/22 03:44 12/17/22 03:44 Medications Medications Current Medications Acetaminophen (Acetaminophen 325 Mg Tablet) 650 mg PO Q6H PRN PRN Reason: Headache/Pain Mild Scale (1-3) Last Admin: 12/20/22 16:50 Dose: 650 mg Al Hydroxide/Mg Hydroxide (Magnesium Hydrox/Alum Hydrox 30 Ml Oral.Susp) 30 ml PO Q6H PRN PRN Reason: Heartburn/Nausea Aripiprazole (Aripiprazole 30 Mg Tablet) 30 mg PO DAILY [facility] Cefuroxime Axetil (Cefuroxime Axetil 500 Mg Tablet) 500 mg PO BID [facility] Last Admin: 12/23/22 20:18 Dose: Not Given Diphenhydramine HCl (Diphenhydramine Hcl 25 Mg Capsule) 50 mg PO Q6H PRN PRN Reason: anxiety, agitation Last Admin: 12/24/22 00:07 Dose: 50 mg Magnesium Hydroxide (Milk Of Magnesia 30 Ml Oral.Susp) 30 ml PO DAILY PRN PRN Reason: Constipation Non-Formulary Medication (Testosterone Cypionate) 80 mg SUBCUT Fr [facility] Olanzapine (Olanzapine Odt 10 Mg Tab.Rapdis) 10 mg TRANSLINGU BID PRN PRN Reason: paranoia, delusion, kirsten Last Admin: 12/24/22 00:08 Dose: 10 mg Trazodone HCl (Trazodone Hcl 50 Mg Tablet) 50 mg PO BEDTIME MRX1 PRN PRN Reason: Insomnia Allergies Allergies Allergy/AdvReac Type Severity Reaction Status Date / Time tree nut [TREE NUT] Allergy Severe Difficulty Verified 12/21/22 08:55 Breathing iodine [IODINE] Allergy Unknown Itching Verified 12/21/22 08:55 shellfish derived Allergy Unknown Hives Verified 12/21/22 08:55 [SHELLFISH DERIVED] [employer] AdvReac Unknown Stomach Uncoded 12/21/22 08:55 Upset Assessment & Plan Assessment & Plan (1) Schizoaffective disorder, bipolar type: Status: Acute Code(s): F25.0 - Schizoaffective disorder, bipolar type (2) Urinary tract infection: Status: Acute Code(s): N39.0 - Urinary tract infection, site not specified (3) Bankart lesion of left shoulder: Status: Acute Code(s): S43.492A - Other sprain of left shoulder joint, initial encounter Plan 32 year old male with history of schizoaffective disorder bipolar type with kirsten and psychosis. In 2020, pt stabilized on abilify and successfully switch MENDES. He apparently did not stay in treatment; He is in need of hospital level of care at this time due to inability to function and self and other safety. He is currently on testosterone for F-M transition and the testosterone may be contributing to mental status changes and should be re-evaluated by endocrinology or outpatient provider Hospital course: 12/20 over the weekend patient provocative, antagonistic and posturing towards staff. Disorganized speech behavior. Remains without any insight and manic. 12/21 continue Abilify 10 mg encourage therapeutic [place] in compliance with outpatient treatment 12/22 continue current medications. 12/23 3 day signed; increase abilify to 30mg; pt remains floridly manic, w/out insight, but willing to take abilify which has been effective and has tolerated in past 12/24 remains manic however did sleep a little bit through the night; continuing to take Abilify; Plan: 3 day Q 15 minute checks Continue Abilify to 30 mg; patient tolerated in the past and got on long-acting injectable. Zydis 10 mg PO BID prn delusions, kirsten benadryl 50 mg BID prn anxiety after care planning when able to participate continue antibiotic for UTI Patient educated on: diagnosis and medication risk/benefits Informed Consent: does not understand and further education needed Reason for continued inpatient stay Substantial Risk for: inability to function Time Spent With Patient Time: Total time managing care of this patient today ____ minutes.
[2022-12-24 09:30] VITALS: BP 145/70; PULSE 99; RESP 18; TEMP 36.4; O2SAT 99
[2022-12-24] MEDS: Acetaminophen 325 MG TABLET 650 MG PO (09:34)
[2022-12-24] MEDS: ARIPiprazole 30 MG TABLET PO (09:35)
[2022-12-24] MEDS: Testosterone Cypionate 200 MG/1 ML VIAL 80 MG SUBCUT (11:03)
[2022-12-24 18:00] VITALS: BP 120/59; PULSE 82; TEMP 37.1
[2022-12-25] MEDS: ARIPiprazole 30 MG TABLET PO (09:27)
[2022-12-25 09:44] VITALS: BP 128/80; PULSE 89; RESP 16; TEMP 36.1; O2SAT 98
--- NOTE | 2022-12-25 15:18 | HO.PSYCHPN ---
Subjective Subjective Date of Service: 12/25/22 Reason For Visit: kirsten Interim History: Met with patient; discussed with team Remains manic and extremely disorganized thought process. When asked how he is doing I am blessed. Proceeds to what amounts to a word salad of answers and topics. Pressured speech. 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 In behavioral control but constantly at manager front and talking none stop to patients and staff. No outbursts. Review of Systems Review of Systems no changes Yes Unobtainable due to mental status Mental Status Exam Mental Status Exam Narrative: Pt is alert and oriented; behavior manic and disorganized; can be intermittently cooperative but also intrusive with others; patient is not in distress; dressed in casual attire with unkempt hair but adequate hygiene; mood is described as good and affect expansive; eye contact appropriate; Speech is pressured and hyperverbal; normal volume; psychomotor agitation present; thought process is disorganized quickly jumping from unrelated topic to unrelated topic; Thought content is of many disconnected thoughts with grandiose delusional beliefs; denies any SI/HI. Unclear if internally preoccupied Patients insight and judgment impaired Patient Appearance: Disheveled and Unkempt Level of Consciousness: Awake, Restless and Inappropriate Patient Behavior: Guarded, Posturing, Hyperactive, Suspicious, Restless, Anxious, Invasion - Personal Space and Pacing Behavior Comments: dancing, twisting self on floor like break dancing loud, whistling, singing, verbalizing word salad Mood Description: Suspicious, Anxious, Labile, Angry, Apprehensive and Expansive Affect Description: Suspicious, Anxious, Labile and Expansive Ability to Follow Directions: Poor Speech Pattern: Garbled, Spontaneous Speech, Rambling, Cofabulation, Rapid, Excessive, Animated, Loud and Pressured Memory Description: Remote Impaired, Immediate Impaired, 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 Operator Impaired, Recent Impaired and Immediate Intact Diagnostics Vital Signs (24Hr): Vital Signs - 24 hr 12/24/22 18:00 12/25/22 09:44 Temperature 98.7 F 97.0 F Pulse Rate 82 89 Respiratory Rate 16 Blood Pressure 120/59 L 128/80 Pulse Oximetry 98 Oxygen Delivery Method Room Air BMI result Body Mass Index 29.0 Labs 12/17/22 03:44 12/17/22 03:44 Medications Medications Current Medications Acetaminophen (Acetaminophen 325 Mg Tablet) 650 mg PO Q6H PRN PRN Reason: Headache/Pain Mild Scale (1-3) Last Admin: 12/24/22 09:34 Dose: 650 mg Al Hydroxide/Mg Hydroxide (Magnesium Hydrox/Alum Hydrox 30 Ml Oral.Susp) 30 ml PO Q6H PRN PRN Reason: Heartburn/Nausea Aripiprazole (Aripiprazole 30 Mg Tablet) 30 mg PO DAILY [facility] Last Admin: 12/25/22 09:27 Dose: 30 mg Cefuroxime Axetil (Cefuroxime Axetil 500 Mg Tablet) 500 mg PO BID [facility] Last Admin: 12/25/22 09:26 Dose: 500 mg Diphenhydramine HCl (Diphenhydramine Hcl 25 Mg Capsule) 50 mg PO Q6H PRN PRN Reason: anxiety, agitation Last Admin: 12/24/22 00:07 Dose: 50 mg Magnesium Hydroxide (Milk Of Magnesia 30 Ml Oral.Susp) 30 ml PO DAILY PRN PRN Reason: Constipation Olanzapine (Olanzapine Odt 10 Mg Tab.Rapdis) 10 mg TRANSLINGU BID PRN PRN Reason: paranoia, delusion, kirsten Last Admin: 12/24/22 00:08 Dose: 10 mg Ondansetron HCl (Ondansetron Odt 4 Mg Tab.Rapdis) 4 mg TRANSLINGU Q6H PRN PRN Reason: Nausea and Vomiting Testosterone Cypionate (Testosterone Cypionate 200 Mg/1 Ml Vial) 80 mg SUBCUT Fr [facility] Last Admin: 12/24/22 11:03 Dose: 80 mg Trazodone HCl (Trazodone Hcl 50 Mg Tablet) 50 mg PO BEDTIME MRX1 PRN PRN Reason: Insomnia Allergies Allergies Allergy/AdvReac Type Severity Reaction Status Date / Time tree nut [TREE NUT] Allergy Severe Difficulty Verified 12/21/22 08:55 Breathing iodine [IODINE] Allergy Unknown Itching Verified 12/21/22 08:55 shellfish derived Allergy Unknown Hives Verified 12/21/22 08:55 [SHELLFISH DERIVED] [employer] AdvReac Unknown Stomach Uncoded 12/21/22 08:55 Upset Assessment & Plan Assessment & Plan (1) Schizoaffective disorder, bipolar type: Status: Acute Code(s): F25.0 - Schizoaffective disorder, bipolar type (2) Urinary tract infection: Status: Acute Code(s): N39.0 - Urinary tract infection, site not specified (3) Bankart lesion of left shoulder: Status: Acute Code(s): S43.492A - Other sprain of left shoulder joint, initial encounter Plan 32 year old male with history of schizoaffective disorder bipolar type with kirsten and psychosis. In 2020, pt stabilized on abilify and successfully switch [facility]. He apparently did not stay in treatment; He is in need of hospital level of care at this time due to inability to function and self and other safety. He is currently on testosterone for F-M transition and the testosterone may be contributing to mental status changes and should be re-evaluated by endocrinology or outpatient provider Hospital course: 12/20 over the weekend patient provocative, antagonistic and posturing towards staff. Disorganized speech behavior. Remains without any insight and manic. 12/21 continue Abilify 10 mg encourage therapeutic [place] in compliance with outpatient treatment 12/22 continue current medications. 12/23 3 day signed; increase abilify to 30mg; pt remains floridly manic, w/out insight, but willing to take abilify which has been effective and has tolerated in past 12/24 remains manic however did sleep a little bit through the night; continuing to take Abilify; 12/25: ?Mouth checks? Will continue to evaluate. 3 day up next week. Consider filing depending on course and response to Abilify. Needs mood stabilization if agreeable. Plan: 3 day Q 15 minute checks Continue Abilify to 30 mg; patient tolerated in the past and got on long-acting injectable. Zydis 10 mg PO BID prn delusions, kirsten benadryl 50 mg BID prn anxiety after care planning when able to participate continue antibiotic for UTI Reason for continued inpatient stay Substantial Risk for: inability to function and rapid decompensation Time Spent With Patient Time: Total time managing care of this patient today ____ minutes.
[2022-12-25 16:39] VITALS: BP 128/87; PULSE 107; RESP 16; TEMP 36.4; O2SAT 100
[2022-12-25 16:40] VITALS: BMI 33.4
[2022-12-25] MEDS: diphenhydrAMINE HCL 25 MG CAPSULE 50 MG PO (19:06)
[2022-12-25] MEDS: OLANZapine ODT 10 MG TAB.RAPDIS TRANSLINGU (19:06)
[2022-12-26 07:30] VITALS: BP 116/78; PULSE 72; RESP 16; TEMP 36.4; O2SAT 100
[2022-12-26] MEDS: ARIPiprazole 30 MG TABLET PO (09:26)
[2022-12-26] MEDS: Acetaminophen 325 MG TABLET 650 MG PO (13:17)
[2022-12-26 17:30] VITALS: BP 133/65; PULSE 77; TEMP 36.3
--- NOTE | 2022-12-26 19:49 | P.PNPSI_ITS ---
Subjective Subjective Date of Service: 12/26/22 Reason For Visit: kirsten Interim History: Met with patient; discussed with team Less visible in the milieu today and spent more time in his room. His thought process remains tangential and pressured when asked a question. Mood and affect remain grandiose and expansive. Eating well. More sleep. No outbursts. Denies SI/HI. Review of Systems Review of Systems no changes Yes Unobtainable due to mental status Mental Status Exam Mental Status Exam Narrative: Pt is alert and oriented; behavior manic and disorganized; can be intermittently cooperative but also intrusive with others; patient is not in distress; dressed in casual attire with unkempt hair but adequate hygiene; mood is described as good and affect expansive; eye contact appropriate; Speech is pressured and hyperverbal; normal volume; psychomotor agitation present; thought process is disorganized quickly jumping from unrelated topic to unrelated topic; Thought content is of many disconnected thoughts with grandiose delusional beliefs; denies any SI/HI. Unclear if internally preoccupied Patients insight and judgment impaired Patient Appearance: Disheveled and Unkempt Level of Consciousness: Awake, Restless and Inappropriate Patient Behavior: Guarded, Posturing, Hyperactive, Suspicious, Restless, Anxious, Invasion - Personal Space and Pacing Behavior Comments: dancing, twisting self on floor like break dancing loud, whistling, singing, verbalizing word salad Mood Description: Suspicious, Anxious, Labile, Angry, Apprehensive and Expansive Affect Description: Suspicious, Anxious, Labile and Expansive Ability to Follow Directions: Poor Speech Pattern: Garbled, Spontaneous Speech, Rambling, Cofabulation, Rapid, Excessive, Animated, Loud and Pressured Memory Description: Remote Impaired, Immediate Impaired, Senior Living Impaired, Recent Impaired and Immediate Intact Diagnostics Vital Signs (24Hr): Vital Signs - 24 hr 12/26/22 07:30 Temperature 97.6 F Pulse Rate 72 Respiratory Rate 16 Blood Pressure 116/78 Pulse Oximetry 100 Oxygen Delivery Method Room Air BMI result Body Mass Index 33.4 Labs 12/17/22 03:44 12/17/22 03:44 Medications Medications Current Medications Acetaminophen (Acetaminophen 325 Mg Tablet) 650 mg PO Q6H PRN PRN Reason: Headache/Pain Mild Scale (1-3) Last Admin: 12/26/22 13:17 Dose: 650 mg Al Hydroxide/Mg Hydroxide (Magnesium Hydrox/Alum Hydrox 30 Ml Oral.Susp) 30 ml PO Q6H PRN PRN Reason: Heartburn/Nausea Aripiprazole (Aripiprazole 30 Mg Tablet) 30 mg PO DAILY [facility] Last Admin: 12/26/22 09:26 Dose: 30 mg Cefuroxime Axetil (Cefuroxime Axetil 500 Mg Tablet) 500 mg PO BID [facility] Last Admin: 12/26/22 09:25 Dose: 500 mg Diphenhydramine HCl (Diphenhydramine Hcl 25 Mg Capsule) 50 mg PO Q6H PRN PRN Reason: anxiety, agitation Last Admin: 12/25/22 19:06 Dose: 50 mg Magnesium Hydroxide (Milk Of Magnesia 30 Ml Oral.Susp) 30 ml PO DAILY PRN PRN Reason: Constipation Olanzapine (Olanzapine Odt 10 Mg Tab.Rapdis) 10 mg TRANSLINGU BID PRN PRN Reason: paranoia, delusion, kirsten Last Admin: 12/25/22 19:06 Dose: 10 mg Ondansetron HCl (Ondansetron Odt 4 Mg Tab.Rapdis) 4 mg TRANSLINGU Q6H PRN PRN Reason: Nausea and Vomiting Testosterone Cypionate (Testosterone Cypionate 200 Mg/1 Ml Vial) 80 mg SUBCUT Fr [facility] Last Admin: 12/24/22 11:03 Dose: 80 mg Trazodone HCl (Trazodone Hcl 50 Mg Tablet) 50 mg PO BEDTIME MRX1 PRN PRN Reason: Insomnia Allergies Allergies Allergy/AdvReac Type Severity Reaction Status Date / Time tree nut [TREE NUT] Allergy Severe Difficulty Verified 12/21/22 08:55 Breathing iodine [IODINE] Allergy Unknown Itching Verified 12/21/22 08:55 shellfish derived Allergy Unknown Hives Verified 12/21/22 08:55 [SHELLFISH DERIVED] Assessment & Plan Assessment & Plan (1) Schizoaffective disorder, bipolar type: Status: Acute Code(s): F25.0 - Schizoaffective disorder, bipolar type (2) Urinary tract infection: Status: Acute Code(s): N39.0 - Urinary tract infection, site not specified (3) Bankart lesion of left shoulder: Status: Acute Code(s): S43.492A - Other sprain of left shoulder joint, initial encounter Plan 32 year old male with history of schizoaffective disorder bipolar type with kirsten and psychosis. In 2020, pt stabilized on abilify and successfully switch MENDES. He apparently did not stay in treatment; He is in need of hospital level of care at this time due to inability to function and self and other safety. He is currently on testosterone for F-M transition and the testosterone may be contributing to mental status changes and should be re-evaluated by en docrinology or outpatient provider Hospital course: 12/20 over the weekend patient provocative, antagonistic and posturing towards staff. Disorganized speech behavior. Remains without any insight and manic. 12/21 continue Abilify 10 mg encourage therapeutic [place] in compliance with outpatient treatment 12/22 continue current medications. 12/23 3 day signed; increase abilify to 30mg; pt remains floridly manic, w/out insight, but willing to take abilify which has been effective and has tolerated in past 12/24 remains manic however did sleep a little bit through the night; continuing to take Abilify; 12/25: ?Mouth checks? Will continue to evaluate. 3 day up next week. Consider filing depending on course and response to Abilify. Needs mood stabilization if agreeable. 12/26: Calmer today but continues with disorganized thought process. Plan: 3 day Q 15 minute checks Continue Abilify to 30 mg; patient tolerated in the past and got on long-acting injectable. Zydis 10 mg PO BID prn delusions, kirsten benadryl 50 mg BID prn anxiety after care planning when able to participate continue antibiotic for UTI Reason for continued inpatient stay Substantial Risk for: inability to function and rapid decompensation Time Spent With Patient Time: Total time managing care of this patient today ____ minutes.
[2022-12-27] MEDS: Acetaminophen 325 MG TABLET 650 MG PO ×2 (01:33→10:35)
[2022-12-27 06:00] VITALS: BP 130/62; PULSE 102; RESP 16; TEMP 37.1
--- NOTE | 2022-12-27 08:22 | P.PNPSI_ITS ---
Subjective Subjective Date of Service: 12/27/22 Reason For Visit: kirsten Interim History: met with patient; discussed with team pt is still with manic symptoms, however he is doing better, more calm and despite remaining very circumstantial is much more able to have a conversation and complete his thoughts. Sleeping through most of night and maintaining safe behaviors. Pt says he notices a difference from when he was admitted, saying he's more able to have conversations with people and when first got her felt like a runnaway slave...like groundhogs day. He does not remember being t hreatening or posturing towards others, but thinks it was perhaps due to being disrespected. Regarding dx, pt does not think he has bipolar disorder; says he thinks that all people are on a spectrum...and that patients hx of trauma plays a significant role in what typewriter assembly and parts inspector terms a manic episode. Pt is ambivalent about continuing on Abilify post discharge since it causes wt gain. He also says that he's been off Abilify/psych meds since around July 2021 and has not been hospitalized until this November 2022 (1.5 years). Mental Status Exam Mental Status Exam Narrative: Pt is alert and oriented; behavior in control and cooperative; mostly calm; some hypomania; appropriate with peers; patient is not in distress; dressed in casual attire with adequate hygiene; mood is described as good and affect more calm; eye contact appropriate; Speech is mildly pressured and verbose, but less so; normal volume and prosody; no psychomotor agitation present; thought process is goal oriented and more organized, though remains quite circumstantial; Thought content is on discharge, plans for aftercare; still with some grandiose thinking,some waxing delusional, but much less so; denies any SI/HI. Not internally preoccupied. Patients insight and judgment impaired but improved. Diagnostics Vital Signs (24Hr): Vital Signs - 24 hr 12/26/22 17:30 Temperature 97.3 F Pulse Rate 77 Blood Pressure 133/65 BMI result Body Mass Index 33.4 Labs 12/17/22 03:44 12/17/22 03:44 Medications Medications Current Medications Acetaminophen (Acetaminophen 325 Mg Tablet) 650 mg PO Q6H PRN PRN Reason: Headache/Pain Mild Scale (1-3) Last Admin: 12/27/22 01:33 Dose: 650 mg Al Hydroxide/Mg Hydroxide (Magnesium Hydrox/Alum Hydrox 30 Ml Oral.Susp) 30 ml PO Q6H PRN PRN Reason: Heartburn/Nausea Aripiprazole (Aripiprazole 30 Mg Tablet) 30 mg PO DAILY [facility] Last Admin: 12/26/22 09:26 Dose: 30 mg Cefuroxime Axetil (Cefuroxime Axetil 500 Mg Tablet) 500 mg PO BID [facility] Last Admin: 12/26/22 20:49 Dose: 500 mg Diphenhydramine HCl (Diphenhydramine Hcl 25 Mg Capsule) 50 mg PO Q6H PRN PRN Reason: anxiety, agitation Last Admin: 12/25/22 19:06 Dose: 50 mg Magnesium Hydroxide (Milk Of Magnesia 30 Ml Oral.Susp) 30 ml PO DAILY PRN PRN Reason: Constipation Olanzapine (Olanzapine Odt 10 Mg Tab.Rapdis) 10 mg TRANSLINGU BID PRN PRN Reason: paranoia, delusion, kirsten Last Admin: 12/25/22 19:06 Dose: 10 mg Ondansetron HCl (Ondansetron Odt 4 Mg Tab.Rapdis) 4 mg TRANSLINGU Q6H PRN PRN Reason: Nausea and Vomiting Testosterone Cypionate (Testosterone Cypionate 200 Mg/1 Ml Vial) 80 mg SUBCUT Fr [facility] Last Admin: 12/24/22 11:03 Dose: 80 mg Trazodone HCl (Trazodone Hcl 50 Mg Tablet) 50 mg PO BEDTIME MRX1 PRN PRN Reason: Insomnia Allergies Allergies Allergy/AdvReac Type Severity Reaction Status Date / Time tree nut [TREE NUT] Allergy Severe Difficulty Verified 12/21/22 08:55 Breathing iodine [IODINE] Allergy Unknown Itching Verified 12/21/22 08:55 shellfish derived Allergy Unknown Hives Verified 12/21/22 08:55 [SHELLFISH DERIVED] Assessment & Plan Assessment & Plan (1) Schizoaffective disorder, bipolar type: Status: Acute Code(s): F25.0 - Schizoaffective disorder, bipolar type (2) Urinary tract infection: Status: Acute Code(s): N39.0 - Urinary tract infection, site not specified (3) Bankart lesion of left shoulder: Status: Acute Code(s): S43.492A - Other sprain of left shoulder joint, initial encounter Plan 32 year old male with history of schizoaffective disorder bipolar type with kirsten and psychosis. In 2020, pt stabilized on abilify and successfully switch MENDES. He apparently did not stay in treatment; He is in need of hospital level of care at this time due to inability to function and self and other safety. He is currently on testosterone for F-M transition and the testosterone may be contributing to mental status changes and should be re-evaluated by endocrinology or outpatient provider Hospital course: 12/20 over the weekend patient provocative, antagonistic and posturing towards staff. Disorganized speech behavior. Remains without any insight and manic. 12/21 continue Abilify 10 mg encourage therapeutic [place] in compliance with outpatient treatment 12/22 continue current medications. 12/23 3 day signed; increase abilify to 30mg; pt remains floridly manic, w/out insight, but willing to take abilify which has been effective and has tolerated in past 12/24 remains manic however did sleep a little bit through the night; continuing to take Abilify; 12/25: ?Mouth checks? Will continue to evaluate. 3 day up next week. Consider filing depending on course and response to Abilify. Needs mood stabilization if agreeable. 12/26: Calmer today but continues with disorganized thought process. 01/07 pt is still with manic symptoms, however he is doing better, more calm and despite remaining very circumstantial is much more able to have a conversation and complete his thoughts. Sleeping through most of night and maintaining safe behaviors. Pt says he notices a difference from when he was admitted, saying he's more able to have conversations with people and when first got her felt like a runnaway slave...like groundhogs day. He does not remember being threatening or posturing towards others, but thinks it was perhaps due to being disrespected. Regarding dx, pt does not think he has bipolar disorder; says he thinks that all people are on a spectrum...and that patients hx of trauma plays a significant role in what typewriter assembly and parts inspector terms a manic episode. Pt is ambivalent about continuing on Abilify post discharge since it causes wt gain. He also says that he's been off Abilify/psych meds since around July 2021 and has not been hospitalized until this November 2022 (1.5 years). -While patient remains hypomanic and with limited insight, especially regarding need for medication, pt is much improved, in behavioral control and appropriate with peers. Hopefully patient will continue to take Abilify, but while typewriter assembly and parts inspector expressed concern that pt will decompensate without psychiatric meds, patient makes a good point that he's remained stable [enough] in the community w/out needing hospitalization for 1.5 years while off psych meds. Pt is not in i mminent risk for harm to self or others. And while he remains at risk for decompensation, especially in light of poor insight into need for medication, pt does not rise to the level of involuntary commitment. Plan: 3 day Q 15 minute checks Continue Abilify to 30 mg; patient tolerated in the past and got on long-acting injectable. Zydis 10 mg PO BID prn delusions, kirsten benadryl 50 mg BID prn anxiety after care planning when able to participate completing antibiotic for UTI Patient educated on: diagnosis, medication risk/benefits and therapeutic strategies Informed Consent: understands, does not understand and further education needed Reason for continued inpatient stay Substantial Risk for: stable for discharge Time Spent With Patient Time: Total time managing care of this patient today ____ minutes.
[2022-12-27] MEDS: ARIPiprazole 30 MG TABLET PO (10:00)
[2022-12-27 20:53] VITALS: BP 132/64; PULSE 98; RESP 16; TEMP 36.3; O2SAT 99
[2022-12-27] MEDS: OLANZapine ODT 10 MG TAB.RAPDIS TRANSLINGU (21:22)
[2022-12-27] MEDS: diphenhydrAMINE HCL 25 MG CAPSULE 50 MG PO (21:22)
--- NOTE | 2022-12-27 23:26 | PC.NURSE ---
Pt. requested an ice pack when requested he showed TW an area on his right thigh that appeared reddened, swollen and was warm to the touch. The area of redness and edema was circled with marker and patient was given an ice pack for comfort. I advised pt. that the doctor should examine in the AM. Notice was put in the nursing shift to shift.
[2022-12-28] MEDS: ARIPiprazole 30 MG TABLET PO (08:22)
[2022-12-28 08:39] VITALS: BP 117/84; PULSE 94; RESP 16; TEMP 36.2; O2SAT 96
[2022-12-28] MEDS: Acetaminophen 325 MG TABLET 650 MG PO (10:28)
[2022-12-28] MEDS: OLANZapine ODT 10 MG TAB.RAPDIS TRANSLINGU (11:49)
--- NOTE | 2022-12-28 13:26 | PM.PSYDC ---
DS: Providers Provider Date of Service: 12/28/22 Date of admission: 12/17/22 19:32 Date of discharge: 12/28/22 Primary care physician: Unknown Physician Attending physician on admission: Marvel Michael Attending physician on discharge: Marvel Michael DS: Diagnosis Discharge Diagnosis (1) Schizoaffective disorder, bipolar type: Status: Acute (2) Urinary tract infection: Status: Acute (3) Bankart lesion of left shoulder: Status: Acute DS: Medications Discharge Medications Home Medications: Home Medications Medication Instructions Recorded Confirmed testosterone cypionate 200 mg/mL 80 mg subcut QWEEK 12/17/22 12/17/22 intramuscular oil Previous Rx's Medication Instructions Recorded aripiprazole 30 mg tablet (Abilify) 30 mg PO DAILY 30 days #30 tabs 12/28/22 diphenhydramine HCl 25 mg capsule 50 mg PO Q6H PRN anxiety, 12/28/22 agitation 30 days #60 caps Mental Status Exam Mental Status Exam Narrative: Pt is alert and oriented; behavior in control and cooperative; mostly calm; some hypomania; appropriate with peers; patient is not in distress; dressed in casual attire with adequate hygiene; mood is described as good and affect more calm; eye contact appropriate; Speech is mildly pressured and verbose, but less so; normal volume and prosody; no psychomotor agitation present; thought process is goal oriented and more organized, though remains quite circumstantial; Thought content is on discharge, plans for aftercare; still with some grandiose thinking,some waxing delusional, but much less so; denies any SI/HI. Not internally preoccupied. Patients insight and judgment impaired but improved. DS: Summary Hospital Course Hospital Course: 32 year old male with history of schizoaffective disorder bipolar type with kirsten and psychosis. In 2020, pt stabilized on abilify and successfully switch MENDES. He apparently did not stay in treatment; He is in need of hospital level of care at this time due to inability to function and self and other safety. He is currently on testosterone for F-M transition -pt treated for UTI On admission, patient was manic, floridly delusional with rambling nonsensical pressured speech and intermittently provocative, antagonistic and posturing towards staff. Patient initially needed to be on a 1-1 for patient and milieu safety. He was willing to restart Abilify which was eventually increased to 30 mg. Over the subsequent days, his kirsten subsided and he became more organized in both speech and behavior. He was no longer posturing or provocative towards peers or staff and though exuberant at times, he was overall in behavioral and impulse control and started sleeping through the night. Patient refuse long-acting injectable and put in a 3 day notice. By the end of his admission, patient still had some was mild to moderate hypomanic symptoms but was overall doing better, more calm and despite remaining very circumstantial much more able to have a conversation and complete his thoughts.? He continued Sleeping through most of night and maintaining safe behaviors. Pt says was aware of the difference from when he was admitted to now, saying he's more able to have conversations with people and when first got her felt like a runnaway slave...[facility]. He does not remember being threatening or posturing towards others, but thinks it was perhaps due to being disrespected. Regarding dx, pt does not think he has bipolar disorder; says he thinks that all people are on a spectrum...and that patients hx of trauma plays a significant role in what technical writer and editor terms a manic episode. Pt is ambivalent about continuing on Abilify post discharge since it causes wt gain. He also says that he's been off Abilify/psych meds since around July 2021 and has not been hospitalized until this November 2022 (1.5 years). Patient's 3 day notice came due and he remained focused on discharge excited to participate in celebrations for . While patient remains hypomanic and with limited insight, especially regarding need for medication, pt is much improved, in behavioral control and appropriate with peers. Hopefully patient will continue to take Abilify, but while technical writer and editor expressed concern that pt will decompensate without psychiatric meds, patient makes a good point that he's remained stable [enough] in the community w/out needing hospitalization for 1.5 years while off psych meds. Pt is not in imminent risk for harm to self or others. And while he remains at risk for decompensation, especially in light of poor insight into need for medication, pt does not rise to the level of involuntary commitment. Time spent discussing smoking cessation with patient: 3 to 10 minutes Status at Discharge Functional status at discharge: independent ambulation Overall status at discharge: patient is progressing back to baseline Time Spent with Patient Time attestation: Total time managing care of this patient today ____ minutes. Time spent: Less than 30 minutes Discharge Plan Discharge Anticipated Discharge Date/Time: 12/28/22 15:00 Patient Disposition: Home, Self-Care Discharge Diagnosis: Schizoaffective disorder, bipolar type Referrals: [facility] RN [Other] - 12/29/22 Psych Prescriber: Matthew Sweeney ([facility]) [Other] - 01/14/23 11:00 am (Telehealth ) Therapy: Erika Mensah ([email or web address]) [Other] - 12/30/22 2:00 pm (Appointment is in person at the office ) [facility] [Other] (Walk in if needed) Discharge Medications: New diphenhydramine HCl 25 mg Capsule 50 mg PO Q6H PRN (Reason: anxiety, agitation) 30 Days Qty: 60 0RF aripiprazole [Abilify] 30 mg Tablet 30 mg PO DAILY 30 Days Qty: 30 0RF Discontinued testosterone cypionate 200 mg/mL oil 80 mg subcut QWEEK Discharge Orders: Discharge Order (Routine); Ordered 12/28/22 Ordered By: Marvel Michael Diet: Regular diet Activity on Discharge: As tolerated Stand Alone Forms: Patient Portal Discharge page, Community Support Care Plan Goals: Maintain mood and safe behaviors Take medications as prescribed Practice coping skills Continue with outpatient providers and reach out to them as needed Health Concerns: Mood stability and behaviors Plan of Treatment: Follow up with your PCP, psychiatric provider and other outpatient providers regarding above concerns Take medications as prescribed Assessment: Risk assessment at time of discharge:? Patient was interviewed prior to discharge and found to be fully oriented and without any SI or HI. Patient has insight and demonstrates good judgment in terms of wanting to pursue treatment. Patient is not in imminent risk of harm to self or others and has a safety plan that includes presenting to the closest ER or calling 911 if feeling unsafe.? Patient has been observed closely by nursing and unit staff; patient has not engaged in any behaviors that suggest dangerousness to self or others and has demonstrated appropriate behaviors and impulse control Discharge Date/Time: 12/28/22 15:25
== END 2022-12-28 15:25 | disposition home or self-care (01) | DRG 885 ==
LOC: HO.ED 05:59 → HO.PM5 19:49
PROVIDERS: Admitting Provider Psychiatry & Neurology Psychiatry; Emergency Provider Emergency Medicine; Visit Provider Psychiatry & Neurology Psychiatry
DX: F25.0 Schizoaffective disorder, bipolar type (principal); R45.851 Suicidal ideations; N39.0 Urinary tract infection, site not specified; S43.492A Other sprain of left shoulder joint, initial encounter; X58.XXXA Exposure to other specified factors, initial encounter; F17.290 Nicotine dependence, other tobacco product, uncomplicated; F64.0 Transsexualism; Z71.6 Tobacco abuse counseling; Z91.148 Patient's other noncompliance with medication regimen for other reason; Z20.822 Contact with and (suspected) exposure to COVID-19; Z79.899 Other long term (current) drug therapy
CPT/HCPCS: 36415; 80053; 80307; 81001; 81025; 85025; 87635; 99285; J1071; S9485

== ENCOUNTER 2023-02-18 12:53 | Outpatient (AMB) | payer MEDICARE, MEDICAID, SELFPAY ==
--- NOTE | 2023-02-18 12:55 | MHC.OFFVIS ---
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 Plic. 08/04/22 NE Intake Note: Jaime is a 31 year old right hand dominant bio-sex female, who identifies as male for a post operative bankhart repair with capsular plication left shoulder, 08/04/22. States he still os limited ROM but cont's to work for improvement. 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 Plic. 08/04/22 NE HPI Details Jaime is a 32 year old bio-sex female, who identifies as male, presents ~6 1/2 months S/P left shoulder Bankart repair with capsular plication. 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 He says he has some pain and continues to be limited in his ROM. He says he has not had any dislocations since his surgery, which he is happy about. He has stopped PT but continues to work on ROM exercises at home. He says he has been working on stretching activities at home and is eager to work out again at the gym with heavy weight-lifting. He has some pain in his shoulder with overuse, and worsens with inclimate weather. He also has pain at night and finds he has to sleep primarily on his back He says he is unable to take NSAIDs due to GI upset, and has difficulty taking oral medication overall due to these issues. His recovery has been complicated with some non-compliance issues, specifically he was seen in the office shortly after surgery without his sling. He says he has a chest masculinization surgery scheduled for 09/2023, and is concerned if he will be able to do this with his shoulder. [facility] Medical History Bankart lesion of left shoulder Surgical History Hx of colonoscopy Social History Household Members: None Housing: Apartment Are you a primary neonatal intensive care nurse to a significant other at home: No Do you presently have visiting nurse or other home services: No Unable to assess alcohol history related to: Unknown Alcohol intake: unknown Patient Tobacco Use Status: Current someday Tobacco user Tobacco use type: Smokeless Tobacco Cigarettes Per Day: 4 Years Smoked: Pt unsure Second Hand Smoke Exposure: No Substance Use Type: Marijuana service: No Sexual orientation: Did not discuss Review of Systems Const All systems reviewed & are unremarkable except as noted in HPI and below Physical Exam Const General: no acute distress and alert Orientation/consciousness: patient oriented x3 Neuro General: patient oriented x3 Extrem Other: Left Shoulder: Well-healed incision 30 degrees ER compared to 45 - sulcus - empty can - apprehension Psych Appearance: grossly normal Affect: normal affect Attitude: cooperative Assessment & Plan Assessment & Plan (1) Bankart lesion of left shoulder: Code(s): S43.492A - Other sprain of left shoulder joint, initial encounter Plan: This is a 32 year old man presenting S/P left shoulder Bankart repair with capsular plication, DOS: 08/04/22. He continues to have some limited ROM and pain with activity, worse at night or with inclimate weather. He has stopped PT and has been working on at-home exercises. I recommend he focus on strengthening exercises, without stretching activities, and he should avoid hyper-ER motions. He is able to perform heavy lifting activities with his elbow kept to his side, and can engage in normal daily activities as tolerated. He will follow up in 3 months. Plan Scribed for Henok Garcia MD by Marvel Reyes, medical device, on [ ] at [ ], EST. Coding Level of Care Code Est Pt Level 3 (12016) Diagnoses Bankart lesion of left shoulder S43.492A
== END 2023-02-18 13:55 | disposition home or self-care (01) ==
PROVIDERS: Visit Provider Orthopaedic Surgery
DX: S43.492A Other sprain of left shoulder joint, initial encounter (principal)
CPT/HCPCS: 99213

== ENCOUNTER → 2023-02-18 12:53 | Outpatient (BNVA) | payer MEDICARE, MEDICAID, SELFPAY | PROVIDERS: Visit Provider Orthopaedic Surgery | DX: S43.492D Other sprain of left shoulder joint, subsequent encounter (principal) | CPT/HCPCS: 99212 ==

== ENCOUNTER 2023-03-05 15:40 | Emergency (ER) | payer MEDICARE, MEDICAID, SELFPAY ==
--- NOTE | ~2023-03-05 | CT_ITS ---
EXAMINATION: CT ABDOMEN AND PELVIS WITH CONTRAST CLINICAL INFORMATION: Right lower quadrant tenderness. COMPARISON: None available. TECHNIQUE: Multidetector volumetric images were obtained from the superior aspect of the liver through the pubic symphysis following administration 85 mL of Omnipaque 350 intravenous contrast. Sagittal and coronal reformatted images were obtained on the technologist's workstation. Oral contrast: No This CT examination was performed using dose optimization techniques as appropriate, variously including the following: *Automated exposure control *Adjustment of mA and/or kV according to patient size (this includes techniques or standardized protocols for targeted exams where dose is matched to indication/reason for exam; i.e. extremities or head) *Use of iterative reconstruction technique DLP: 1066 mGy-cm FINDINGS: Technically limited due to motion artifacts. LUNG BASES: Suboptimally evaluated due to motion artifacts. LIVER, GALLBLADDER, AND BILIARY TREE: Suboptimally evaluated due to motion artifacts. Suboptimally evaluated due to motion artifact. PANCREAS: Suboptimally evaluated due to motion artifact. SPLEEN: Suboptimally evaluated due to motion artifact. ADRENAL GLANDS: Suboptimally evaluated due to motion artifact. KIDNEYS AND URETERS: Suboptimally evaluated due to motion artifact. BLADDER: Unremarkable. GASTROINTESTINAL TRACT: The appendix is well-visualized and is unremarkable. Distal part of the descending colon and sigmoid colon and proximal part of the ascending colon appear unremarkable. The distal small bowel loops are decompressed. The remainder of the bowels are suboptimally evaluated due to motion artifact. ABDOMINAL WALL: Infrarenal umbilical abdominal wall appear unremarkable. The remainder of the abdomen wall optimally visualized due to motion artifact. LYMPH NODES: The distal part of the retroperitoneum appears unremarkable. The proximal part of the retroperitoneum is suboptimally evaluated due to motion artifacts. VASCULAR: The distal part of the aorta and both common iliac arteries and both common femoral arteries are unremarkable. PELVIC VISCERA: The uterus is heterogeneous and abnormally enlarged, shows superimposed calcifications, most consistent with uterine fibroid. Follow-up nonemergent pelvic ultrasound may be considered for further clarification. No evidence of any free fluid or free air. OSSEOUS STRUCTURES: The upper part of the skeleton is suboptimally evaluated due to motion artifacts. The lower part of the visualized skeleton appear intact. CT/CT abdomen pelvis w IV con IMPRESSION: 1. Technically limited study due to motion artifact. The appendix however is well-visualized and is unremarkable. 2. Abnormal enlarged heterogeneous uterus associated with calcification, likely representing uterine fibroid. Nonemergent pelvic ultrasound may be considered for further clarification. Fleischner guidelines were followed.
[2023-03-05 15:42] VITALS: BP 123/79; PULSE 72; RESP 16; TEMP 36.8; O2SAT 98; BMI 33.1
--- NOTE | 2023-03-05 15:42 | ED_ITS ---
HPI - Abdominal Pain General Chief Complaint: Abdominal Pain Stated Complaint: abd pain Time Seen by Provider: 03/05/23 15:58 Source: patient Mode of arrival: ambulatory Limitations: no limitations History of Present Illness HPI narrative: Patient is a 32-year-old assigned female a who identifies as male curr ently on testosterone with history of fibroids, schizoaffective disorder presenting the emergency department with 2-3 days of left upper abdominal pain. Patient reports that he was attempting to get out of his room on Tuesday and had to slide out of the window on his stomach and jumped to the ground. Reports an abrasion to right lower quadrant. Reports some nausea today, denies vomiting, diarrhea, constipation. Denies fevers. Denies dysuria or hematuria. Denies back or flank pain. Denies any bright red blood in stool or dark, tarry stool. Denies prior abdominal surgeries. MD elicited complaint: abdominal pain Pertinent past history: other Onset (ago): day(s) Pain Consistency: constant Location: LUQ Severity: moderate Quality: cramping and burning Radiation: none Exacerbating factors: movement Relieving factors: rest Context: recent injury Associated symptoms: nausea Related Data Previous Rx's Medication Instructions Recorded aripiprazole 30 mg tablet (Abilify) 30 mg PO DAILY 30 days #30 tabs 12/28/22 diphenhydramine HCl 25 mg capsule 50 mg PO Q6H PRN anxiety, 12/28/22 agitation 30 days #60 caps Allergies Allergy/AdvReac Type Severity Reaction Status Date / Time tree nut [TREE NUT] Allergy Severe Difficulty Verified 02/18/23 12:58 Breathing iodine [IODINE] Allergy Unknown Itching Verified 02/18/23 12:58 shellfish derived Allergy Unknown Hives Verified 02/18/23 12:58 [SHELLFISH DERIVED] Review of Systems Review of Systems As per HPI. Yes all other systems are reviewed and are negative Constitutional: Reports as per HPI PMFSH Past Medical History Medical History Bankart lesion of left shoulder Surgical History Hx of colonoscopy Social History Social History Household Members: None Housing: Apartment Are you a primary manager respiratory care to a significant other at home: No Do you presently have visiting nurse or other home services: No Unable to assess alcohol history related to: Unknown Alcohol intake: unknown Patient Tobacco Use Status: Current someday Tobacco user Tobacco use type: Smokeless Tobacco Cigarettes Per Day: 4 Years Smoked: Pt unsure Second Hand Smoke Exposure: No Substance Use Type: Marijuana Advance Directives: No Advance Directives Information Provided: No service: No Sexual orientation: Did not discuss Physical Exam ED Vital Signs: Vital Signs - 24 hr 03/05/23 15:42 Temperature 98.3 F Pulse Rate 72 Respiratory Rate 16 Blood Pressure 123/79 Pulse Oximetry 98 Oxygen Delivery Method Room Air BMI result Body Mass Index 33.1 Vital signs have been reviewed and appear to be correct. Blood pressure normal. Heart rate normal. Respiratory rate normal. Temperature normal. Oxygen saturation normal. Const General: cooperative, healthy appearing and no acute distress Orientation/consciousness: oriented to person, oriented to place, oriented to time and patient oriented x3 Limitations: no limitations HENMT Head: Yes normocephalic and Yes atraumatic Ears: external ears normal General nose exam: Normal external nose present Face and sinus: Yes face symmetric Mouth: oropharynx normal and moist mucous membranes Throat: Yes uvula midline Eyes Pupils: Equal, round and reactive pupils present Neck Neck: Yes normal visual inspection and Yes supple Resp Effort & Inspection: normal respiratory effort and able to speak in complete sentences Auscultation: clear to auscultation bilaterally Cardio Rate: regular rate Rhythm: regular rhythm Heart sounds: S1 normal heart sound present and S2 normal heart sound present GI Inspection: Yes normal to inspection Palpation (GI): Soft to palpation, Tenderness to palpation present (GI) in the RLQ, no guarding, no masses and No Rebound tenderness present Auscultation: normoactive bowel sounds General: Yes no CVA tenderness Back/Spine/Pelvis Back: no CVA tenderness Skin General skin exam: elasticity normal and turgor normal Neuro General: oriented to person, oriented to place, oriented to time, patient oriented x3, moves all extremities, no focal motor deficits and CN's II-XI intact bilaterally Cranial nerves: Yes Equal, round and reactive pupils present Cognition (Neuro): normal cognition Extrem General: Yes full ROM, Yes no pedal edema and Yes no calf tenderness Psych Mental Status: mental status grossly normal Affect: normal affect Thought process: Normal thought process present Course Course Course Narrative: This is a rapid medical exam. Deferred additional HPI, ROS, PE to primary provider. 32 yo female who indentifies as male with PMH schizoaffective disorder, anxiety, depression, uterine fibroids on testosterone here with complaints of left sided abdominal pain/bloating x 2 days. No vomiting, diarrhea, constipation, urinary symptoms, fevers, chills. VSS Will check labs, UA, ur preg Reevaluation(s) Reevaluation #1: [address] [address] [address] Scan Report Signed Patient: Jaime Madrid MR#: [id number] : 1990 Acct:[id number] Age/Sex: 32 / F ADM Date: 03/05/23 Loc: HO.ED Attending Dr: Ordering Physician: Melodie Mcgarry NP Date of Service: 03/05/23 Procedure(s): CT abdomen pelvis w IV con Accession Number(s): [id number] cc: Melodie Mcgarry NP~ EXAMINATION: CT ABDOMEN AND PELVIS WITH CONTRAST? CLINICAL INFORMATION: Right lower quadrant tenderness.? COMPARISON: None available. TECHNIQUE: Multidetector volumetric images were obtained from the superior aspect of the liver through the pubic symphysis following administration 85 mL of Omnipaque 350 intravenous contrast. Sagittal and coronal reformatted images were obtained on the technologist's workstation.? Oral contrast: No This CT examination was performed using dose optimization techniques as appropriate, variously including the following: *Automated exposure control *Adjustment of mA and/or kV according to patient size (this includes techniques or standardized protocols for targeted exams where dose is matched to indication/reason for exam; i.e. extremities or head) *Use of iterative reconstruction technique DLP: 1066 mGy-cm FINDINGS: Technically limited due to motion artifacts. LUNG BASES: Suboptimally evaluated due to motion artifacts.? LIVER, GALLBLADDER, AND BILIARY TREE: Suboptimally evaluated due to motion artifacts. Suboptimally evaluated due to motion artifact.? PANCREAS: Suboptimally evaluated due to motion artifact.? SPLEEN: Suboptimally evaluated due to motion artifact.? ADRENAL GLANDS: Suboptimally evaluated due to motion artifact.? KIDNEYS AND URETERS: Suboptimally evaluated due to motion artifact.? BLADDER: Unremarkable.? GASTROINTESTINAL TRACT: The appendix is well-visualized and is unremarkable. Distal part of the descending colon and sigmoid colon and proximal part of the ascending colon appear unremarkable. The distal small bowel loops are decompressed. The remainder of the bowels are suboptimally evaluated due to motion artifact. ABDOMINAL WALL: Infrarenal umbilical abdominal wall appear unremarkable. The remainder of the abdomen wall optimally visualized due to motion artifact.? LYMPH NODES: The distal part of the retroperitoneum appears unremarkable. The proximal part of the retroperitoneum is suboptimally evaluated due to motion artifacts. VASCULAR: The distal part of the aorta and both common iliac arteries and both common femoral arteries are unremarkable. PELVIC VISCERA: The uterus is heterogeneous and abnormally enlarged, shows superimposed calcifications, most consistent with uterine fibroid. Follow-up nonemergent pelvic ultrasound may be considered for further clarification. No evidence of any free fluid or free air.? OSSEOUS STRUCTURES: The upper part of the skeleton is suboptimally evaluated due to motion artifacts. The lower part of the visualized skeleton appear intact.? CT/CT abdomen pelvis w IV con IMPRESSION: ? 1. Technically limited study due to motion artifact. The appendix however is well-visualized and is unremarkable. 2. Abnormal enlarged heterogeneous uterus associated with calcification, likely representing uterine fibroid. Nonemergent pelvic ultrasound may be considered for further clarification. ? Fleischner guidelines were followed. Reevaluation #2: 1950-Sign out at [address] A/P. Reviewed findings with the patient. Recommend f/u with [facility] outpatient for nonemergent US Medical Decision Making Medical Decision Making MDM Narrative: Patient is a 32-year-old assigned female a who identifies as male currently on testosterone with history of fibroids, schizoaffective disorder presenting the emergency department with 2-3 days of left upper abdominal pain. On exam patient is awake, A+Ox3, VS WNL, afebrile, normal neurological exam without focal deficits, abdomen soft, tender to palpation right lower quadrant, no guarding or rebound tenderness, no CVA tenderness. Given reported symptoms and physical exam findings, initial differential includes appendicitis, abdominal contusion, ectopic , uterine fibroid, UTI/pyelonephritis. Labs notable for no leukocytosis, normal H&H, no electrolyte abnormalities, urine negative, no evidence of UTI on UA. Patient signed out to ROLO Pacheco pending CT results. Differential Diagnosis Differential Diagnoses: The differential diagnosis associated with the presentation includes As per [facility]. Admission/Observation Consideration of admission/observation: Escalation of care including admission/observation considered Lab Data [facility] Lab Attestation statement: I reviewed the patient's lab results. As per MDM. 03/05/23 16:04 03/05/23 16:04 Labs: Lab Results 03/05/23 03/05/23 03/05/23 Range/Units 16:04 16:04 16:04 WBC 6.3 (4.8-10.8) X10*3/uL RBC 4.69 (4.20-5.50) X10*6/uL Hgb 14.0 (12.0-16.0) g/dl Hct 43.7 (37.0-47.0) % MCV 93.2 (80.0-98.0) fL MCH 29.9 (27.0-33.0) pg MCHC 32.0 (31.0-35.0) g/dl RDW 13.8 (11.0-16.0) % Plt Count 305 (160-400) X10*3/uL MPV 9.6 (9.4-12.3) fL Immature Gran % (Auto) 0.3 (0.0-0.4) % Neut % (Auto) 55.2 (45-73) % Lymph % (Auto) 35.4 (20-40) % [place] % (Auto) 6.2 (2-11) % Eos % (Auto) 2.4 (0-4) % Baso % (Auto) 0.5 (0-2) % Lymph # (Auto) 2.2 (1.2-4.9) X10*3/uL [place] # (Auto) 0.4 (0.1-1.2) X10*3/uL Eos # (Auto) 0.2 (0.0-0.4) X10*3/uL Baso # (Auto) 0.0 (0.0-0.2) X10*3/uL Abs Immat Gran (auto) 0.02 (0.00-0.03) X10*3/uL Absolute Neuts (auto) 3.5 (2.0-8.3) x10*3/uL Absolute Nucleated RBC 0.000 (0.0-0.012) X10*3/uL Nucleated RBC % (auto) 0.0 (0.0-0.2) /100WBC Sodium 140 (135-145) mmol/L Potassium 4.0 (3.3-5.1) mmol/L Chloride 104 (96-108) mmol/L Carbon Dioxide 29 (22-29) mmol/L Anion Gap 11 L (12-20) BUN 16 (9-16) mg/dL Creatinine 1.33 (0.5-1.4) mg/dL Estim Creat Clear Calc 70.3 Estimated GFR 47 Random Glucose 69 (60-115) mg/dL Calcium 9.3 (8.4-10.2) mg/dL Total Bilirubin 0.3 (0.0-1.0) mg/dL Direct Bilirubin 0.1 (0.0-0.5) mg/dL AST 23 (5-31) U/L ALT 20 (0-31) U/L Alkaline Phosphatase 64 (39-117) U/L Total Protein 7.3 (6.5-8.0) g/dL Albumin 4.1 (3.5-5.0) g/dL Lipase 14 (8-78) U/L Urine Color Yellow Urine Appearance Clear Urine pH 7.5 (5.0-9.0) Ur Specific [place] 1.020 (1.005-1.025) Urine Protein Negative (Neg-Trace) mg/dL Urine Glucose (UA) Negative (Negative) mg/dL Urine Ketones Trace (Negative) mg/dL Urine Blood Negative (Negative) Urine Nitrite Negative (Negative) Ur Leukocyte Esterase Trace H (Negative) Urine RBC 0-2 (0-2) /HPF Urine WBC 6-10 H (0-5) /HPF Ur Squamous Epith Cells 0-2 (0-2) /HPF Urine Bacteria None Seen (None Seen) Hyaline Casts 0-2 (0-2) /LPF Urine Test (NEGATIVE) 03/05/23 Range/Units 16:04 WBC (4.8-10.8) X10*3/uL RBC (4.20-5.50) X10*6/uL Hgb (12.0-16.0) g/dl Hct (37.0-47.0) % MCV (80.0-98.0) fL MCH (27.0-33.0) pg MCHC (31.0-35.0) g/dl RDW (11.0-16.0) % Plt Count (160-400) X10*3/uL MPV (9.4-12.3) fL Immature Gran % (Auto) (0.0-0.4) % Neut % (Auto) (45-73) % Lymph % (Auto) (20-40) % [place] % (Auto) (2-11) % Eos % (Auto) (0-4) % Baso % (Auto) (0-2) % Lymph # (Auto) (1.2-4.9) X10*3/uL [place] # (Auto) (0.1-1.2) X10*3/uL Eos # (Auto) (0.0-0.4) X10*3/uL Baso # (Auto) (0.0-0.2) X10*3/uL Abs Immat Gran (auto) (0.00-0.03) X10*3/uL Absolute Neuts (auto) (2.0-8.3) x10*3/uL Absolute Nucleated RBC (0.0-0.012) X10*3/uL Nucleated RBC % (auto) (0.0-0.2) /100WBC Sodium (135-145) mmol/L Potassium (3.3-5.1) mmol/L Chloride (96-108) mmol/L Carbon Dioxide (22-29) mmol/L Anion Gap (12-20) BUN (9-16) mg/dL Creatinine (0.5-1.4) mg/dL Estim Creat Clear Calc Estimated GFR Random Glucose (60-115) mg/dL Calcium (8.4-10.2) mg/dL Total Bilirubin (0.0-1.0) mg/dL Direct Bilirubin (0.0-0.5) mg/dL AST (5-31) U/L ALT (0-31) U/L Alkaline Phosphatase (39-117) U/L Total Protein (6.5-8.0) g/dL Albumin (3.5-5.0) g/dL Lipase (8-78) U/L Urine Color Urine Appearance Urine pH (5.0-9.0) Ur Specific [place] (1.005-1.025) Urine Protein (Neg-Trace) mg/dL Urine Glucose (UA) (Negative) mg/dL Urine Ketones (Negative) mg/dL Urine Blood (Negative) Urine Nitrite (Negative) Ur Leukocyte Esterase (Negative) Urine RBC (0-2) /HPF Urine WBC (0-5) /HPF Ur Squamous Epith Cells (0-2) /HPF Urine Bacteria (None Seen) Hyaline Casts (0-2) /LPF Urine Test NEGATIVE (NEGATIVE) External Record Review External record reviewed: Inpatient record, Office record and Outpatient record Medications Administered Discontinued Medications Generic Name Dose Route Start Last Admin Trade Name Freq PRN Reason Stop Dose Admin Diphenhydramine HCl 25 mg 03/05/23 17:36 03/05/23 17:44 Diphenhydramine Hcl 50 Mg/Ml Vial IVPUSH 03/05/23 17:37 25 mg ONCE ONE Administration Iohexol 100 ml 03/05/23 18:23 03/05/23 18:24 Iohexol 350 Mg/Ml 100 Ml Infus..Btl IV 03/05/23 18:24 85 ml ONCE ONE Administration Methylprednisolone Sodium Succinate 125 mg 03/05/23 17:36 03/05/23 17:45 Methylprednisolone Sod Succ 125 Mg/2 Ml Vial IVPUSH 03/05/23 17:37 125 mg ONCE ONE Administration Discharge Plan Discharge Clinical Impression: Abdominal pain, Fibroid, uterine Patient Disposition: Home, Self-Care Instructions: Acute Abdominal Pain (DC), Abdominal Pain (ED) Additional Instructions: You have been evaluated in the emergency department today for abdominal pain. Your evaluation did not show evidence of medical conditions requiring emergent intervention at this time. Please schedule an appointment with your primary care physician. Return to the emergency department if you experience worsening or uncontrolled pain, fevers 100.4? F or greater, recurrent vomiting, inability to tolerate food or fluids by mouth, bloody stools or vomit, black or tarry stools, or any other concerning symptoms. Your CT scan shows a uterine fibroid. Please follow-up with [facility] Take motri or tylenol as needed for pain Prescriptions: No Action diphenhydramine HCl 25 mg Capsule 50 mg PO Q6H PRN (Reason: anxiety, agitation) 30 Days Qty: 60 0RF aripiprazole [Abilify] 30 mg Tablet 30 mg PO DAILY 30 Days Qty: 30 0RF Referrals: Karin Cruz MD [Primary Care Provider] - 1 week Stand Alone Forms: Work/School Release
[2023-03-05 16:09] LABS: MANUAL DIFF FLAG NO
[2023-03-05 16:11] LABS: Basophils Percent Auto 0.5 % (0-2); Eosinophils Absolute Auto 0.2 X10*3/uL (0.0-0.4); Eosinophils Percent Auto 2.4 % (0-4); Hematocrit 43.7 % (37.0-47.0); Imm Gran Abs Auto 0.02 X10*3/uL (0.00-0.03); Imm Gran Pct Auto 0.3 % (0.0-0.4); Lymphocytes Absolute Auto 2.2 X10*3/uL (1.2-4.9); Lymphocytes Percent Auto 35.4 % (20-40); Mean Corpuscular Hemoglobin 29.9 pg (27.0-33.0); Mean Corpuscular Volume 93.2 fL (80.0-98.0); Mean Platelet Volume 9.6 fL (9.4-12.3); Monocytes Absolute Auto 0.4 X10*3/uL (0.1-1.2); Monocytes Percent Auto 6.2 % (2-11); Neutrophils Absolute Auto 3.5 x10*3/uL (2.0-8.3); Neutrophils Percent Auto 55.2 % (45-73); Platelet Count 305 X10*3/uL (160-400); Red Blood Count 4.69 X10*6/uL (4.20-5.50); Red Cell Distribution Width 13.8 % (11.0-16.0); White Blood Count 6.3 X10*3/uL (4.8-10.8)
[2023-03-05 16:12] LABS: Appearance Urine Clear; Color Urine Yellow; Glucose Urine UA Negative (Negative); Leukocyte Esterase Urine Trace (Negative); Nitrite Urine Negative (Negative); PH 7.5 (5.0-9.0); UMIC TRIGGER UACC YES; Urine Blood Negative (Negative); Urine Ketones Trace mg/dL (Negative); Urine Protein Negative (Neg-Trace)
[2023-03-05 16:14] LABS: Bacteria Urine None Seen (None Seen); Hyaline Casts Urine 0-2 /LPF (0-2); RBC Urine 0-2 /HPF (0-2); Squamous Epithelial Cell Urine 0-2 /HPF (0-2); UACC Culture Trigger YES
[2023-03-05 16:15] LABS: UPreg QC Valid YES; Urine Pregnancy NEGATIVE (NEGATIVE)
[2023-03-05 16:31] LABS: Alanine Aminotransferase 20 U/L (0-31); Albumin Level 4.1 g/dL (3.5-5.0); Alkaline Phosphatase 64 U/L (39-117); Anion Gap 11 (12-20); Aspartate Amino Transferase 23 U/L (5-31); Bilirubin Direct 0.1 mg/dL (0.0-0.5); Bilirubin Total 0.3 mg/dL (0.0-1.0); Blood Urea Nitrogen 16 mg/dL (9-16); Calcium 9.3 mg/dL (8.4-10.2); Carbon Dioxide 29 mmol/L (22-29); Chloride 104 mmol/L (96-108); Creatinine Clr Calc Pharmacy 70.3; Estimated Glomerular Filt Rate 47; Glucose Random 69 mg/dL (60-115); Lipase 14 U/L (8-78); Sodium 140 mmol/L (135-145); Total Protein 7.3 g/dL (6.5-8.0)
[2023-03-05] MEDS: diphenhydrAMINE HCL 50 MG/ML VIAL 25 MG IVPUSH (17:44)
[2023-03-05] MEDS: methylPREDNISolone Sod Succ 125 MG/2 ML VIAL IVPUSH (17:45)
[2023-03-05] MEDS: iohexoL 350 MG/ML 100 ML INFUS..BTL IV (18:24)
== END 2023-03-05 20:10 | disposition home or self-care (01) ==
PROVIDERS: Nurse Practitioner Family; Emergency Provider Emergency Medicine; PCP Family Medicine
DX: R10.31 Right lower quadrant pain (principal); D25.9 Leiomyoma of uterus, unspecified; S30.811A Abrasion of abdominal wall, initial encounter; X58.XXXA Exposure to other specified factors, initial encounter; F17.200 Nicotine dependence, unspecified, uncomplicated; F12.90 Cannabis use, unspecified, uncomplicated; Y93.89 Activity, other specified; Y92.9 Unspecified place or not applicable; Y99.9 Unspecified external cause status; F64.0 Transsexualism; Z79.890 Hormone replacement therapy
CPT/HCPCS: 36415; 74177; 80048; 80076; 81001; 81025; 83690; 85025; 87086; 87147; 96374; 96375; 99282; 99284; J1200; J2930; Q9967

== ENCOUNTER 2023-05-27 10:20 | Outpatient (AMB) | payer MEDICARE, MEDICAID, SELFPAY ==
--- NOTE | 2023-05-27 11:12 | MHC.OFFVIS ---
Intake Vital Signs 05/27/23 11:14 Height 5 ft 6 in Weight 204 lb BMI 32.9 Intake Visit Reasons: OV-lt ld bank. rep. w/Capsu. Plic. 08/04/22 NE Intake Note: Jaime is a 31 year old right hand dominant bio-sex female, who identifies as male for a post operative bankhart repair with capsular plication left shoulder, 08/04/22. Patient reports that they are doing well overall. Pain is increased with cold weather. Allergies tree nut [TREE NUT] Allergy (Severe, Verified 02/18/23 12:58) Difficulty Breathing iodine [IODINE] Allergy (Unknown, Verified 02/18/23 12:58) Itching shellfish derived [SHELLFISH DERIVED] Allergy (Unknown, Verified 02/18/23 12:58) Hives HPI OV-lt ld bank. rep. w/Capsu. Plic. 08/04/22 NE HPI Details Jaime is a 32 year presents ~10 months S/P left shoulder Bankart repair with capsular plication. 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 He has some pain in his shoulder with overuse, and worsens with cold inclimate weather. He also has pain at night and finds he has to sleep primarily on his back. Overall his pain has improved and he is happy with this. He says he has not had any dislocations since his surgery, which he is happy about. He says he has been working on strengthening activities at home and at the gym, and avoiding stretching exercises. He says he is unable to take NSAIDs due to GI upset, and has difficulty taking oral medication overall due to these issues. [facility] Medical History Bankart lesion of left shoulder Surgical History Hx of colonoscopy Social History (Updated 05/27/23 @ 11:14 by Gabby Pinto CMA) Household Members: None Housing: Apartment Are you a primary director day care center to a significant other at home: No Do you presently have visiting nurse or other home services: No Unable to assess alcohol history related to: Unknown Alcohol intake: unknown Patient Tobacco Use Status: Current someday Tobacco user Tobacco use type: Smokeless Tobacco Cigarettes Per Day: 4 Years Smoked: Pt unsure Second Hand Smoke Exposure: No Substance Use Type: Marijuana service: No Current occupational status: employed Current occupation: [employer] Sexual orientation: Did not discuss Review of Systems Const All systems reviewed & are unremarkable except as noted in HPI and below Physical Exam Vital Signs: BMI result Body Mass Index 32.9 Const General: no acute distress and alert Orientation/consciousness: patient oriented x3 HEENT Head: Yes normocephalic and Yes atraumatic Eyes EOM: EOMs intact bilaterally Resp Effort & Inspection: normal respiratory effort and able to speak in complete sentences Cardio Jugular venous distension: no JVD Skin General skin exam: turgor normal Rashes: no rashes Neuro General: patient oriented x3 Extrem Other: Left Shoulder: Well-healed incision 35 degrees ER - sulcus - empty can - apprehension Psych Appearance: grossly normal Affect: normal affect Attitude: cooperative Assessment & Plan Assessment & Plan (1) Bankart lesion of left shoulder: Code(s): S43.492A - Other sprain of left shoulder joint, initial encounter Plan: This is a 32 year old S/P left shoulder Bankart repair with capsular plication, DOS: 08/04/22. He has mild occasional pain with activity, worse at night or with inclimate weather, but no instability. He has been working on at-home strengthening exercises, as well as at the gym, and avoiding hyper-ER motions or stretching activities. He is able to engage in daily activities as tolerated, and may continue. Plan Scribed for Henok Garcia MD by Marvel Reyes, medical transcription, on 05/27/23 at 11:55 AM, EST. Coding Level of Care Code Est Pt Level 3 (73405) Diagnoses Bankart lesion of left shoulder S43.492A
[2023-05-27 11:14] VITALS: BMI 32.9
== END 2023-05-27 11:56 | disposition home or self-care (01) ==
PROVIDERS: Visit Provider Orthopaedic Surgery
DX: S43.492D Other sprain of left shoulder joint, subsequent encounter (principal)
CPT/HCPCS: 99213

== ENCOUNTER → 2023-05-27 10:20 | Outpatient (BNVA) | payer MEDICARE, MEDICAID, SELFPAY | PROVIDERS: Visit Provider Orthopaedic Surgery | DX: S43.492D Other sprain of left shoulder joint, subsequent encounter (principal) | CPT/HCPCS: 99212 ==

== ENCOUNTER 2023-08-04 16:06 | Emergency (ER) | payer MEDICARE, MEDICAID, SELFPAY ==
--- NOTE | 2023-08-04 16:08 | ECG_ITS ---
Test Reason : chest pain Blood Pressure : / mmHG Vent. Rate : 079 BPM Atrial Rate : 079 BPM P-R Int : 134 ms QRS Dur : 082 ms QT Int : 378 ms P-R-T Axes : 046 031 012 degrees QTc Int : 433 ms Normal sinus rhythm with sinus arrhythmia Normal ECG When compared with ECG of 12-NOV-2022 10:49, No significant change was found Referred By: Generic ED Physician Electronically Signed By:LORETTA HOWARD
[2023-08-04 16:19] VITALS: BP 132/73; PULSE 79; RESP 18; TEMP 36.8; O2SAT 100; BMI 34.4
[2023-08-04 16:37] LABS: MANUAL DIFF FLAG NO
[2023-08-04 16:39] LABS: Basophils Percent Auto 0.4 % (0-2); Eosinophils Absolute Auto 0.1 X10*3/uL (0.0-0.4); Eosinophils Percent Auto 1.5 % (0-4); Hematocrit 38.3 % (37.0-47.0); Hemoglobin 12.9 g/dl (12.0-16.0); Lymphocytes Absolute Auto 2.7 X10*3/uL (1.2-4.9); Lymphocytes Percent Auto 51.3 % (20-40); Mean Corpuscular HGB Conc 33.7 g/dl (31.0-35.0); Mean Corpuscular Hemoglobin 31.3 pg (27.0-33.0); Monocytes Absolute Auto 0.4 X10*3/uL (0.1-1.2); Monocytes Percent Auto 7.4 % (2-11); Neutrophils Percent Auto 39.4 % (45-73); Platelet Count 295 X10*3/uL (160-400); Red Blood Count 4.12 X10*6/uL (4.20-5.50); Red Cell Distribution Width 12.5 % (11.0-16.0); White Blood Count 5.2 X10*3/uL (4.8-10.8)
[2023-08-04 16:51] LABS: Anion Gap 11 (12-20); Blood Urea Nitrogen 15 mg/dL (9-16); Calcium 9.4 mg/dL (8.4-10.2); Carbon Dioxide 30 mmol/L (22-29); Chloride 104 mmol/L (96-108); Creatinine Clr Calc Pharmacy 85.3; Estimated Glomerular Filt Rate 57; Glucose Random 93 mg/dL (60-115); Sodium 141 mmol/L (135-145)
[2023-08-04 17:02] LABS: Troponin-I High Sensitivity < 2.7 ng/L (<3.5-17.0)
[2023-08-04 17:42] VITALS: BP 139/76; PULSE 66; RESP 16; O2SAT 97
--- NOTE | 2023-08-04 17:44 | ED_ITS ---
HPI - Chest Pain General Chief Complaint: Chest Pain Stated Complaint: chest pain Related Data Previous Rx's ?Medication ?Instructions ?Recorded aripiprazole 30 mg tablet (Abilify) 30 mg PO DAILY 30 days #30 tabs 12/28/22 diphenhydramine HCl 25 mg capsule 50 mg (2 x 25 mg) PO Q6H PRN 12/28/22 anxiety, agitation 30 days #60 caps Allergies Allergy/AdvReac Type Severity Reaction Status Date / Time tree nut [TREE NUT] Allergy Severe Difficulty Verified 02/18/23 12:58 Breathing iodine [IODINE] Allergy Unknown Itching Verified 02/18/23 12:58 shellfish derived Allergy Unknown Hives Verified 02/18/23 12:58 [SHELLFISH DERIVED] trazodone Allergy Unknown Verified 08/04/23 16:18 PMFSH Past Medical History Onset Date is defined in the Problem List Problems that require an onset date and time if occurred within 24 hrs of arrival to the ED Aortic Dissection and Rupture; Neurologic impairment; Cardiopulmonary Arrest; Endotracheal Intubation; Insertion or Replacement of Mechanical Circulatory Assist Device Medical History Bankart lesion of left shoulder Surgical History Hx of colonoscopy Social History Social History (Updated 05/27/23 @ 11:14 by Gabby Pinto CMA) Household Members: None Housing: Apartment Are you a primary before and after school daycare worker to a significant other at home: No Do you presently have visiting nurse or other home services: No Unable to assess alcohol history related to: Unknown Alcohol intake: unknown Patient Tobacco Use Status: Current someday Tobacco user Tobacco use type: Smokeless Tobacco Cigarettes Per Day: 4 Years Smoked: Pt unsure Second Hand Smoke Exposure: No Substance Use Type: Marijuana Advance Directives: No Advance Directives Information Provided: No service: No Current occupational status: employed Current occupation: [employer] Sexual orientation: Did not discuss Physical Exam 2 Vital Signs: Vital Signs: Last Vital Signs Temp 98.3 F 08/04/23 16:19 Pulse 66 08/04/23 17:42 Resp 16 08/04/23 17:42 BP 139/76 08/04/23 17:42 Pulse Ox 97 08/04/23 17:42 O2 Del Method Room Air 08/04/23 17:42 BMI result Body Mass Index 34.4 Course Course Course Narrative: RME- 32 year old female presents for evaluation of chest pain and palpitations. Plan for labs and EKG Medical Decision Making Lab Data 08/04/23 16:31 08/04/23 16:31 Labs: Lab Results 08/04/23 Range/Units 16:31 WBC 5.2 (4.8-10.8) X10*3/uL RBC 4.12 L (4.20-5.50) X10*6/uL Hgb 12.9 (12.0-16.0) g/dl Hct 38.3 (37.0-47.0) % MCV 93.0 (80.0-98.0) fL MCH 31.3 (27.0-33.0) pg MCHC 33.7 (31.0-35.0) g/dl RDW 12.5 (11.0-16.0) % Plt Count 295 (160-400) X10*3/uL MPV 9.0 L (9.4-12.3) fL Immature Gran % (Auto) 0.0 (0.0-0.4) % Neut % (Auto) 39.4 L (45-73) % Lymph % (Auto) 51.3 H (20-40) % Major % (Auto) 7.4 (2-11) % Eos % (Auto) 1.5 (0-4) % Baso % (Auto) 0.4 (0-2) % Lymph # (Auto) 2.7 (1.2-4.9) X10*3/uL Major # (Auto) 0.4 (0.1-1.2) X10*3/uL Eos # (Auto) 0.1 (0.0-0.4) X10*3/uL Baso # (Auto) 0.0 (0.0-0.2) X10*3/uL Abs Immat Gran (auto) 0.00 (0.00-0.03) X10*3/uL Absolute Neuts (auto) 2.0 (2.0-8.3) x10*3/uL Absolute Nucleated RBC 0.000 (0.0-0.012) X10*3/uL Nucleated RBC % (auto) 0.0 (0.0-0.2) /100WBC Sodium 141 (135-145) mmol/L Potassium 4.0 (3.3-5.1) mmol/L Chloride 104 (96-108) mmol/L Carbon Dioxide 30 H (22-29) mmol/L Anion Gap 11 L (12-20) BUN 15 (9-16) mg/dL Creatinine 1.12 (0.5-1.4) mg/dL Estim Creat Clear Calc 85.3 Estimated GFR 57 Random Glucose 93 (60-115) mg/dL Calcium 9.4 (8.4-10.2) mg/dL Total Bilirubin 0.1 (0.0-1.0) mg/dL Direct Bilirubin < 0.2 (0.0-0.5) mg/dL AST 18 (5-31) U/L ALT 19 (0-31) U/L Alkaline Phosphatase 64 (39-117) U/L Troponin I High Sens < 2.7 (<3.5-17.0) ng/L Total Protein 7.2 (6.5-8.0) g/dL Albumin 4.0 (3.5-5.0) g/dL Lipase 14 (8-78) U/L Discharge Plan Discharge Clinical Impression: Chest pain Patient Disposition: Left W/O Completing Treatment Prescriptions: No Action diphenhydramine HCl 25 mg Capsule 50 mg PO Q6H PRN (Reason: anxiety, agitation) 30 Days Qty: 60 0RF aripiprazole [Abilify] 30 mg Tablet 30 mg PO DAILY 30 Days Qty: 30 0RF Discharge Date/Time: 08/04/23 20:15
[2023-08-04 18:10] LABS: Alanine Aminotransferase 19 U/L (0-31); Alkaline Phosphatase 64 U/L (39-117); Aspartate Amino Transferase 18 U/L (5-31); Bilirubin Direct < 0.2 mg/dL (0.0-0.5); Bilirubin Total 0.1 mg/dL (0.0-1.0); Lipase 14 U/L (8-78); Total Protein 7.2 g/dL (6.5-8.0)
== END 2023-08-04 20:15 | disposition left against medical advice (07) ==
LOC: HO.ED 20:09
PROVIDERS: Physician Assistant; Emergency Provider Emergency Medicine; PCP Family Medicine
DX: R07.89 Other chest pain (principal); R00.2 Palpitations; F17.200 Nicotine dependence, unspecified, uncomplicated; Z71.6 Tobacco abuse counseling; Z79.899 Other long term (current) drug therapy
CPT/HCPCS: 36415; 80048; 80076; 83690; 84484; 85025; 93005; 99283

== ENCOUNTER → 2023-08-04 16:08 | Outpatient (BNV) | payer MEDICARE, MEDICAID, SELFPAY | PROVIDERS: Emergency Provider Emergency Medicine; PCP Family Medicine; Visit Provider Internal Medicine | DX: R07.9 Chest pain, unspecified (principal) | CPT/HCPCS: 93010 ==

== ENCOUNTER 2024-01-30 17:07 | Inpatient (IN) | payer MEDICARE, MEDICAID, SELFPAY ==
--- NOTE | 2024-01-30 17:17 | ED_ITS ---
HPI - Psych General Chief Complaint: Psychiatric Symptoms Stated Complaint: FROM [facility], AMS, INCREASED AGGRESSION, OFF MEDS Time Seen by Provider: 01/30/24 17:16 Source: patient and EMS Mode of arrival: EMS Limitations: no limitations History of Present Illness HPI Narrative: Patient is a 33-year-old transgender female to male who presents to the emergency department via EMS for evaluation. He resides in a nursing home, was evaluated in the community by [facility] and came as a voluntary inpatient bed search. He has reportedly been off of his medications including Abilify and Prozac for the past 6 months because he ?wants to be mentally free?. He states that he is here today because ?people are making complaints about the noise? when asked for clarification he identifies people as ?noisy neighbors?. Per EMS report he has shown increasing aggression towards staff and peers at the nursing home. He is calm and cooperative here. Denies any recreational drug or alcohol usage. He denies any suicidal or homicidal ideations. He denies any auditory or visual hallucinations. He offers no physical complaints at this time. Related Data Home Medications ?Medication ?Instructions ?Recorded ?Confirmed testosterone cypionate 200 mg/mL 80 mg subcut QWEEK 01/30/24 01/30/24 intramuscular oil Allergies Allergy/AdvReac Type Severity Reaction Status Date / Time tree nut [TREE NUT] Allergy Severe Difficulty Verified 01/30/24 17:24 Breathing iodine [IODINE] Allergy Unknown Itching Verified 01/30/24 17:24 shellfish derived Allergy Unknown Hives Verified 01/30/24 17:24 [SHELLFISH DERIVED] trazodone Allergy Unknown Verified 01/30/24 17:24 Review of Systems 2 Review of Systems: Yes all other systems are reviewed and are negative PMFSH Past Medical History Attestation statement: The following information was validated with the patient. Source: old records reviewed Medical History Bankart lesion of left shoulder Surgical History Hx of colonoscopy Social History Social History (Updated 05/27/23 @ 11:14 by Gabby Pinto CMA) Household Members: None Housing: Apartment Are you a primary personal care worker to a significant other at home: No Do you presently have visiting nurse or other home services: No Unable to assess alcohol history related to: Unknown Alcohol intake: current Alcohol intake frequency: holidays/special occasions only Patient Tobacco Use Status: Current someday Tobacco user Tobacco use type: Smokeless Tobacco Cigarettes Per Day: 4 Years Smoked: Pt unsure Smoked in Last 30 Days: Yes Second Hand Smoke Exposure: No Use of substances other than those prescribed or required for medical reasons: No Substance Use Type: Marijuana Advance Directives: No Advance Directives Information Provided: No Patient : No service: No Current occupational status: employed Current occupation: [employer] Sexual orientation: Did not discuss Physical Exam 2 Vital Signs: Vital Signs: Last Vital Signs Temp 99.0 F 01/30/24 17:19 Pulse 92 01/30/24 17:19 Resp 16 01/30/24 17:30 BP 124/87 01/30/24 17:19 Pulse Ox 98 01/30/24 17:19 O2 Del Method Room Air 01/30/24 17:19 BMI result Body Mass Index 32.1 Appearance: Alert.?Oriented to person, place and time. Disorganized , tangential thinking Neck: Normal inspection.? Neck supple.?? CVS: Heart sounds normal. Normal heart rate and rhythm.? Pulses normal.?? Respiratory: No respiratory distress.? Lung sounds clear to auscultation bilaterally?? Skin: Skin warm and dry.? Normal skin color.? Extremities: No lower extremity edema.? Neuro: Moves all extremities spontaneously. Sensation intact bilaterally. CN II- XII intact. No focal neuro deficits. Ambulates with normal steady gait. Medical Decision Making Medical Decision Making MDM Narrative: Patient is a 33-year-old transgender female to male with past medical history of schizoaffective disorder who presents emergency department via EMS after being evaluated by [facility] in the community and made a voluntary inpatient bed search, admittedly has not been taking medications for the past 6 months, in increasing aggression at his nursing home. He is calm and cooperative here, noted to have disorganized and tangential thinking. Offers no physical complaints in his physical examination is benign. Plan to obtain basic labs for medical clearance and will be placed in physician observation so the inpatient bed search can ensue. CBC is without leukocytosis anemia or thrombocytopenia. No electrolyte derangement. Mildly elevated creatinine, suspect secondary to dehydration in the setting of decompensation, patient refusing IV access, nursing staff encouraged to push oral fluids Differential Diagnosis Differential Diagnoses: The differential diagnosis associated with the presentation includes (See narrative below) Admission/Observation Consideration of admission/observation: Escalation of care including admission/observation considered Patient is being observed in the Emergency Department for decompensated schizoaffective disorder. Observation time was started at 17:46 on 01/30/2024..?T he patient is currently stable and non-toxic appearing. Observation is being initiated in the Emergency Department to allow time for inpatient bed search to ensue. The patient will receive frequent psychiatric assessments from the provider as well as from nursing staff. The patient will also be monitored for the need of PRN agitation medications such as Haldol, Ativan, and Benadryl. Consult Healthcare Provider Management of the patient was discussed with: Behavioral Health Provider CARE team evaluated patient, agree with decision for patient placed on a section 12 for inpatient bed search. Lab Data MDM Lab Attestation statement: I reviewed the patient's lab results. 01/30/24 19:13 01/30/24 19:13 Labs: Lab Results 01/30/24 01/30/24 Range/Units 17:44 19:13 WBC 5.5 (4.8-10.8) X10*3/uL RBC 4.71 (4.20-5.50) X10*6/uL Hgb 14.6 (12.0-16.0) g/dl Hct 43.2 (37.0-47.0) % MCV 91.7 (80.0-98.0) fL MCH 31.0 (27.0-33.0) pg MCHC 33.8 (31.0-35.0) g/dl RDW 13.4 (11.0-16.0) % Plt Count 303 (160-400) X10*3/uL MPV 9.6 (9.4-12.3) fL Immature Gran % (Auto) 0.2 (0.0-0.4) % Neut % (Auto) 56.8 (45-73) % Lymph % (Auto) 35.2 (20-40) % [place] % (Auto) 6.9 (2-11) % Eos % (Auto) 0.5 (0-4) % Baso % (Auto) 0.4 (0-2) % Lymph # (Auto) 1.9 (1.2-4.9) X10*3/uL [place] # (Auto) 0.4 (0.1-1.2) X10*3/uL Eos # (Auto) 0.0 (0.0-0.4) X10*3/uL Baso # (Auto) 0.0 (0.0-0.2) X10*3/uL Abs Immat Gran (auto) 0.01 (0.00-0.03) X10*3/uL Absolute Neuts (auto) 3.1 (2.0-8.3) x10*3/uL Absolute Nucleated RBC 0.000 (0.0-0.012) X10*3/uL Nucleated RBC % (auto) 0.0 (0.0-0.2) /100WBC Sodium 141 (135-145) mmol/L Potassium 3.6 (3.3-5.1) mmol/L Chloride 105 (96-108) mmol/L Carbon Dioxide 28 (22-29) mmol/L Anion Gap 12 (12-20) BUN 11 (9-16) mg/dL Creatinine 1.48 H (0.5-1.4) mg/dL Estim Creat Clear Calc 61.7 Estimated GFR 41 Random Glucose 99 (60-115) mg/dL Calcium 9.5 (8.4-10.2) mg/dL Total Bilirubin 0.4 (0.0-1.0) mg/dL AST 23 (5-31) U/L ALT 16 (0-31) U/L Alkaline Phosphatase 51 (39-117) U/L Total Protein 7.3 (6.5-8.0) g/dL Albumin 4.3 (3.5-5.0) g/dL Urine Color Dark Yellow Urine Appearance Clear Urine pH 6.0 (5.0-9.0) Ur Specific [place] >= 1.030 H (1.005-1.025) Urine Protein 100 (2+) H (Neg-Trace) mg/dL Urine Glucose (UA) Negative (Negative) mg/dL Urine Ketones 40 (Negative) mg/dL Urine Blood Negative (Negative) Urine Nitrite Negative (Negative) Ur Leukocyte Esterase Small (1+) H (Negative) Urine RBC 0-2 (0-2) /HPF Urine WBC 6-10 H (0-5) /HPF Ur Squamous Epith Cells 0-2 (0-2) /HPF Urine Bacteria None Seen (None Seen) Hyaline Casts 3-5 (0-2) /LPF Urine Test NEGATIVE (NEGATIVE) Urine Opiates Screen Not Detected (Not Detect) Ur Buprenorphine Scrn Not Detected (Not Detect) ng/mL Ur Oxycodone Screen Not Detected (Not Detect) ng/mL Urine Methadone Screen Not Detected (Not Detect) ng/mL Urine Fentanyl Screen Not Detected (Not Detect) Ur Barbiturates Screen Not Detected (Not Detect) Ur Phencyclidine Scrn Not Detected (Not Detect) Ur Amphetamines Screen Not Detected (Not Detect) U Benzodiazepines Scrn Not Detected (Not Detect) Urine Cocaine Screen Not Detected (Not Detect) U Marijuana (THC) Screen Not Detected (Not Detect) Ethyl Alcohol < 10 mg/dL Independent Historian Clinical information obtained from an independent historian. History obtained from or confirmed by: EMS External Record Review External record reviewed: Outpatient record Discharge Plan Discharge Clinical Impression: Schizoaffective disorder, bipolar type, JACKIE (acute kidney injury) Patient Disposition: Still a Patient Prescriptions: No Action testosterone cypionate 200 mg/mL oil 80 mg subcut QWEEK Interventions: [place]-Suicide Risk Severity Scale Last Done: 01/30/24 17:30 Print Language: [place] Island[place]
[2024-01-30 17:19] VITALS: BP 124/87; BP 142/88; PULSE 104; PULSE 92; RESP 14; TEMP 37.2; O2SAT 98; BMI 32.1
--- NOTE | 2024-01-30 17:24 | PC.NURSE ---
Jaime comes to the ED today via ambulance from his [facility]. Per EMS, patient has been off his antipsychotics for about 6 months, per the pt, this is true. Patient reports he has been non-compliant with his Abilify and Prozac because he wants to be mentally free . Pts thought process appears disorganized, jumping from subject to subject, flight of ideas. Patient is easily verbally redirected without issue. Patient denies any suicidal or homicidal ideation and also denies any visual or auditory hallucinations. Patient is calm and cooperative during oil changer, offers no complaints of pain or concerns to this RN. Currently changing clothing with CORNELIO Day. Aware of plan of care for blood work/urine for medical clearance.
[2024-01-30 17:30] VITALS: RESP 16
[2024-01-30 17:54] LABS: Appearance Urine Clear; Color Urine Dark Yellow; Glucose Urine UA Negative (Negative); Leukocyte Esterase Urine Small (1+) (Negative); Nitrite Urine Negative (Negative); Specific Gravity - Urine >= 1.030 (1.005-1.025); UMIC TRIGGER UACC YES; Urine Blood Negative (Negative); Urine Ketones 40 mg/dL (Negative); Urine Protein 100 (2+) mg/dL (Neg-Trace)
[2024-01-30 17:59] LABS: Bacteria Urine None Seen (None Seen); RBC Urine 0-2 /HPF (0-2); Squamous Epithelial Cell Urine 0-2 /HPF (0-2); UACC Culture Trigger YES
[2024-01-30 18:03] LABS: Amphetamine Screen Urine Not Detected (Not Detect); Barbiturates, Urine Not Detected (Not Detect); Benzodiazepines Screen Urine Not Detected (Not Detect); Buprenorphine Scr Not Detected (Not Detect); Cannabinoid Screen Urine Not Detected (Not Detect); Cocaine Screen Urine Not Detected (Not Detect); Fentanyl, urine Not Detected (Not Detect); Methadone Screen, Urine Not Detected (Not Detect); Opiate Screen Urine Not Detected (Not Detect); Oxycodone Screen Urine Not Detected (Not Detect); Phencyclidine Screen Urine Not Detected (Not Detect)
[2024-01-30 18:27] LABS: UPreg QC Valid YES; Urine Pregnancy NEGATIVE (NEGATIVE)
--- NOTE | 2024-01-30 19:10 | PC.NURSE ---
patient appears to remain at rest at present, patient was allegedyl making phone calls to a copy director at begin of shift trying to leave? patient appears in no distress at present.
--- NOTE | 2024-01-30 19:10 | PC.NURSE ---
After changer fixer, patient requested shower. patient was provided with shower products. After about 10 minutes, patient was checked on by CORNELIO Desouza and was found to be laying on shower floor. Patient was splashing around in water, refusing to get up. This RN attempted to go in and speak with the patient however, patient became upset and told this RN to stop staring at me like a toddler, go get an adult . This RN attempted to clarify if patient fell, patient confirmed that he did not fall, nor is he hurt. this RN called security to assist with getting patient out of the shower. After about 10-15 minutes, patient got dressed and returned to room. Patient continues with disorganized thought process and speech but is able to redirect self to watching TV
[2024-01-30 19:18] LABS: Basophils Percent Auto 0.4 % (0-2); Eosinophils Percent Auto 0.5 % (0-4); Hematocrit 43.2 % (37.0-47.0); Hemoglobin 14.6 g/dl (12.0-16.0); Imm Gran Abs Auto 0.01 X10*3/uL (0.00-0.03); Imm Gran Pct Auto 0.2 % (0.0-0.4); Lymphocytes Absolute Auto 1.9 X10*3/uL (1.2-4.9); Lymphocytes Percent Auto 35.2 % (20-40); MANUAL DIFF FLAG NO; Mean Corpuscular HGB Conc 33.8 g/dl (31.0-35.0); Mean Corpuscular Volume 91.7 fL (80.0-98.0); Mean Platelet Volume 9.6 fL (9.4-12.3); Monocytes Absolute Auto 0.4 X10*3/uL (0.1-1.2); Monocytes Percent Auto 6.9 % (2-11); Neutrophils Absolute Auto 3.1 x10*3/uL (2.0-8.3); Neutrophils Percent Auto 56.8 % (45-73); Platelet Count 303 X10*3/uL (160-400); Red Blood Count 4.71 X10*6/uL (4.20-5.50); Red Cell Distribution Width 13.4 % (11.0-16.0); White Blood Count 5.5 X10*3/uL (4.8-10.8)
[2024-01-30 19:37] LABS: Alanine Aminotransferase 16 U/L (0-31); Albumin Level 4.3 g/dL (3.5-5.0); Alkaline Phosphatase 51 U/L (39-117); Anion Gap 12 (12-20); Aspartate Amino Transferase 23 U/L (5-31); Bilirubin Total 0.4 mg/dL (0.0-1.0); Blood Urea Nitrogen 11 mg/dL (9-16); Calcium 9.5 mg/dL (8.4-10.2); Carbon Dioxide 28 mmol/L (22-29); Chloride 105 mmol/L (96-108); Creatinine Clr Calc Pharmacy 61.7; Estimated Glomerular Filt Rate 41; Ethanol < 10 mg/dL; Glucose Random 99 mg/dL (60-115); Potassium 3.6 mmol/L (3.3-5.1); Sodium 141 mmol/L (135-145); Total Protein 7.3 g/dL (6.5-8.0)
--- NOTE | 2024-01-30 22:20 | PC.NURSE ---
about 40 minutes of continuous talk, pressured speech, now ad olivia transitioned to group area rambling dialogue. client wanting to demand 1:1 time from staff.
--- NOTE | 2024-01-30 23:12 | PC.NURSE ---
limits set with escalating patient and client made gentle threats as client walked self to room. security came in to support and client asks for an audience with security.
--- NOTE | 2024-01-31 | ECG_ITS ---
Test Reason : ABD PAIN Blood Pressure : / mmHG Vent. Rate : 064 BPM Atrial Rate : 064 BPM P-R Int : 134 ms QRS Dur : 100 ms QT Int : 390 ms P-R-T Axes : 055 054 020 degrees QTc Int : 402 ms Normal sinus rhythm Normal ECG When compared with ECG of 04-AUG-2023 16:15, No significant change was found Referred By: Generic ED Physician Electronically Signed By:BUTCH ANGELES MD
--- NOTE | 2024-01-31 00:14 | PC.NURSE ---
client is seated in room periodically singing
[2024-01-31] MEDS: LORazepam 2 MG/ML VIAL IM (03:05)
[2024-01-31] MEDS: OLANZapine 10 MG VIAL IM (03:05)
[2024-01-31 03:16] VITALS: BP 122/100; PULSE 100; RESP 18; TEMP 36.2; O2SAT 93
--- NOTE | 2024-01-31 15:12 | MHC.CARE ---
this credit underwriter and [facility] co response completed the [employer] part C behavioral health form, faxed to [phone]. t/w has a physical copy of the form if needed. Faxed 01/30 @ 0454
[2024-01-31 18:20] VITALS: BP 99/64; PULSE 50; RESP 18; TEMP 36.8; O2SAT 97
[2024-01-31 18:48] VITALS: BP 128/75; PULSE 75; RESP 16; TEMP 36.9; O2SAT 94
[2024-01-31 18:50] VITALS: BMI 32.0
--- NOTE | 2024-01-31 20:15 | PC.ADMIT ---
Addendum entered by Sue Lozano RN 01/31/24 20:40: pt reports he receives testosterone injections and is due 02/01/24. Original Note: Jaime is a transgender, female to male patient and arrived on the unit from [facility] at 18:45. He has an accepted CV. Pt was sedated due to the meds (he willingly received IM ativan and zyprexa at approximately 3am due to manic behavior) and had difficultly keeping his eyes open at times but participated during the initial assessment. He reports he is here because my neighbors keep complaining that I sing and dance, but what the hell? . Pt also reports that people are following me and bothering me . Pts speech was pressured and tangential during conversation. He mentioned he is no longer on medication because my doctor told me in July that I was doing good . Pt was unable to elaborate as to what his understanding of the doctors statement was. Pt also reports applying to the [employer] but they said I need more work on my mental health . Tox screen is negative. Skin check performed, vitals obtained, and patient oriented to the unit. Jaime denies si/hi/avh and is on 15min checks for safety. Marilu Muhammad RN has assumed care of this pt and will complete remainder of assessment.
[2024-02-01 08:00] VITALS: BP 112/66; PULSE 60; RESP 16; TEMP 36.4; O2SAT 97
[2024-02-01 08:32] LABS: Cholesterol 154 mg/dL (<200); HDL Cholesterol 24 mg/dL (>40); LDL Cholesterol Calculated 119 mg/dL (<100); Triglycerides 57 mg/dL (<150)
[2024-02-01 08:47] LABS: Free T4 (Free Thyroxine) 0.87 ng/dL (0.71-1.85); Thyroid Stimulating Hormone 0.39 uIU/mL (0.32-4.0)
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
[2024-02-01 12:28] LABS: Estimated Average Glucose 100 mg/dL; Hemoglobin A1c % 5.1 % (<6.0)
[2024-02-01] MEDS: Sulfamethox/Trimeth 800/160 TABLET 1 TAB PO ×2 (13:34→22:00)
[2024-02-01 13:37] LABS: Folate 11.1 ng/mL (> or = 4.0); Vitamin B12 914 pg/mL (200-900)
[2024-02-01 20:00] VITALS: BP 146/85; PULSE 107; RESP 16; TEMP 36.9; O2SAT 98
[2024-02-02 08:30] VITALS: BP 99/55; PULSE 60; RESP 16; TEMP 36.4; O2SAT 98
[2024-02-02] MEDS: Sulfamethox/Trimeth 800/160 TABLET 1 TAB PO ×2 (08:47→20:57)
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
[2024-02-02 11:54] VITALS: BMI 32.1
[2024-02-03] MEDS: Sulfamethox/Trimeth 800/160 TABLET 1 TAB PO ×2 (09:08→20:17)
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
[2024-02-03] MEDS: clonazePAM 0.5 MG TABLET PO ×2 (13:57→20:16)
[2024-02-03 20:00] VITALS: BP 127/79; PULSE 93; TEMP 36.6; O2SAT 97
[2024-02-04 08:00] VITALS: BP 134/60; PULSE 66; RESP 16; TEMP 36.4; O2SAT 98
[2024-02-04 08:24] LABS: Anion Gap 12 (12-20); Blood Urea Nitrogen 12 mg/dL (9-16); Calcium 9.6 mg/dL (8.4-10.2); Carbon Dioxide 27 mmol/L (22-29); Chloride 104 mmol/L (96-108); Creatinine Clr Calc Pharmacy 67.2; Estimated Glomerular Filt Rate 45; Glucose Random 97 mg/dL (60-115); Potassium 4.6 mmol/L (3.3-5.1); Sodium 138 mmol/L (135-145)
[2024-02-04 08:45] LABS: HCG Quantitative < 2 mIU/mL
[2024-02-04] MEDS: clonazePAM 0.5 MG TABLET PO ×3 (08:54→20:04)
[2024-02-04] MEDS: Sulfamethox/Trimeth 800/160 TABLET 1 TAB PO (08:54)
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
[2024-02-04 20:00] VITALS: BP 148/75; PULSE 74; TEMP 36.3
[2024-02-05 08:00] VITALS: BP 130/76; PULSE 62; RESP 18; TEMP 36.5; O2SAT 99
[2024-02-05] MEDS: clonazePAM 0.5 MG TABLET PO ×3 (08:21→20:57)
[2024-02-05] MEDS: Sulfamethox/Trimeth 800/160 TABLET 1 TAB PO ×2 (08:21→20:57)
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
[2024-02-05] MEDS: Lidocaine 4 % Patch ADH..PATCH 1 PATCH TRANSDERMA (21:11)
--- NOTE | 2024-02-06 03:17 | PC.NURSE ---
Patient requested Lidocaine patch for low back pain. Moderate relief reported.
[2024-02-06] MEDS: hydrOXYzine HCL 25 MG TABLET PO (06:17)
[2024-02-06 08:00] VITALS: BP 107/71; PULSE 89; RESP 16; TEMP 36.9; O2SAT 98
[2024-02-06] MEDS: Sulfamethox/Trimeth 800/160 TABLET 1 TAB PO ×2 (08:14→21:30)
[2024-02-06] MEDS: clonazePAM 0.5 MG TABLET PO ×3 (08:14→21:24)
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
[2024-02-06 20:00] VITALS: BP 119/66; PULSE 117; RESP 18; TEMP 36.5; O2SAT 97
[2024-02-07 08:00] VITALS: BP 129/75; PULSE 83; RESP 18; TEMP 36; O2SAT 95
[2024-02-07] MEDS: clonazePAM 0.5 MG TABLET PO ×3 (08:16→20:37)
[2024-02-07] MEDS: Sulfamethox/Trimeth 800/160 TABLET 1 TAB PO ×2 (10:07→21:13)
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
[2024-02-07] MEDS: Cariprazine HCl 1.5 MG CAPSULE PO (20:37)
[2024-02-08 08:00] VITALS: BP 105/58; PULSE 78; RESP 15; TEMP 36.4; O2SAT 98
[2024-02-08] MEDS: Cariprazine HCl 1.5 MG CAPSULE PO ×2 (09:22→21:30)
[2024-02-08] MEDS: clonazePAM 0.5 MG TABLET PO ×3 (09:22→21:30)
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
[2024-02-09 08:00] VITALS: BP 120/72; PULSE 64; RESP 16; TEMP 36.1; O2SAT 97
[2024-02-09] MEDS: clonazePAM 0.5 MG TABLET PO ×3 (10:25→21:01)
[2024-02-09] MEDS: Lidocaine 4 % Patch ADH..PATCH 1 PATCH TRANSDERMA (10:25)
[2024-02-09] MEDS: Cariprazine HCl 1.5 MG CAPSULE PO ×2 (10:25→21:01)
[2024-02-09] MEDS: Testosterone Cypionate 200 MG/1 ML VIAL 80 MG IM (16:17)
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
[2024-02-09 20:00] VITALS: BP 128/74; PULSE 72; RESP 16; TEMP 36.6; O2SAT 98
[2024-02-10 08:00] VITALS: BP 125/60; PULSE 67; RESP 18; TEMP 36.4; O2SAT 98
[2024-02-10] MEDS: Cariprazine HCl 1.5 MG CAPSULE PO ×2 (09:10→21:54)
[2024-02-10] MEDS: clonazePAM 0.5 MG TABLET PO ×3 (09:10→21:54)
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
[2024-02-10 20:00] VITALS: BP 125/85; PULSE 110; RESP 16; TEMP 36.9; O2SAT 96
[2024-02-11 08:00] VITALS: BP 105/57; PULSE 78; RESP 18; TEMP 36.6; O2SAT 100
[2024-02-11] MEDS: clonazePAM 0.5 MG TABLET PO ×3 (08:38→20:19)
[2024-02-11] MEDS: Lidocaine 4 % Patch ADH..PATCH 1 PATCH TRANSDERMA (08:38)
[2024-02-11] MEDS: Cariprazine HCl 1.5 MG CAPSULE PO ×2 (08:38→20:19)
[2024-02-11] MEDS: hydrOXYzine HCL 25 MG TABLET PO (10:49)
[2024-02-11 19:37] VITALS: BP 126/66; PULSE 90; RESP 16; TEMP 36.4; O2SAT 98
[2024-02-12 08:00] VITALS: BP 125/68; PULSE 71; RESP 16; TEMP 36.4; O2SAT 99
[2024-02-12] MEDS: Cariprazine HCl 1.5 MG CAPSULE PO ×2 (09:12→20:56)
[2024-02-12] MEDS: clonazePAM 0.5 MG TABLET PO (09:12)
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
[2024-02-12 20:00] VITALS: BP 110/60; PULSE 80; RESP 17; TEMP 36.7; O2SAT 96
[2024-02-13 08:00] VITALS: BP 112/59; PULSE 78; RESP 18; TEMP 36.1; O2SAT 99
[2024-02-13] MEDS: Cariprazine HCl 1.5 MG CAPSULE PO ×2 (08:41→20:46)
[2024-02-13] MEDS: clonazePAM 0.5 MG TABLET PO (08:41)
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
[2024-02-13] MEDS: hydrOXYzine HCL 25 MG TABLET PO (12:24)
[2024-02-13] MEDS: Ondansetron ODT 8 MG TAB.RAPDIS TRANSLINGU (16:09)
[2024-02-13 20:00] VITALS: BP 153/88; PULSE 101; TEMP 36.9; O2SAT 96
[2024-02-14 08:05] VITALS: BP 131/63; PULSE 84; TEMP 36; O2SAT 99
[2024-02-14] MEDS: Cariprazine HCl 3 MG CAPSULE PO (08:42)
[2024-02-14] MEDS: Lidocaine 4 % Patch ADH..PATCH 1 PATCH TRANSDERMA (08:45)
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
[2024-02-14] MEDS: Ondansetron ODT 4 MG TAB.RAPDIS TRANSLINGU (13:24)
[2024-02-14 20:00] VITALS: BP 133/83; PULSE 85; RESP 14; TEMP 36.4; O2SAT 96
[2024-02-14] MEDS: Cariprazine HCl 1.5 MG CAPSULE PO (21:02)
[2024-02-15] MEDS: Cariprazine HCl 1.5 MG CAPSULE 4.5 MG PO (08:25)
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
[2024-02-15 10:03] VITALS: BP 135/77; PULSE 91; RESP 18; TEMP 36.4; O2SAT 97
[2024-02-15] MEDS: hydrOXYzine HCL 25 MG TABLET PO (13:31)
[2024-02-15 20:00] VITALS: BP 138/81; PULSE 105; RESP 16; TEMP 36.5; O2SAT 96
[2024-02-16 07:54] VITALS: BP 141/96; PULSE 90; RESP 16; TEMP 36.9; O2SAT 100
[2024-02-16] MEDS: Cariprazine HCl 1.5 MG CAPSULE 4.5 MG PO (08:42)
[2024-02-16] MEDS: chlorproMAZINE HCl 100 MG TABLET PO (08:42)
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
[2024-02-16 10:11] VITALS: BMI 34.1
[2024-02-16 10:13] VITALS: BP 171/96; PULSE 90; RESP 16; TEMP 36.9; O2SAT 100
[2024-02-16 21:57] VITALS: BP 117/67
[2024-02-16] MEDS: cloNIDine HCL 0.1 MG TABLET PO (21:57)
[2024-02-16 22:00] VITALS: BP 117/67; PULSE 96; TEMP 36.3
[2024-02-17] MEDS: Ondansetron ODT 4 MG TAB.RAPDIS TRANSLINGU (04:04)
[2024-02-17] MEDS: hydrOXYzine HCL 25 MG TABLET PO (04:04)
[2024-02-17 08:00] VITALS: BP 110/62; PULSE 92; RESP 14; TEMP 36.4; O2SAT 98
[2024-02-17] MEDS: Cariprazine HCl 1.5 MG CAPSULE 4.5 MG PO (08:25)
[2024-02-17] MEDS: Lidocaine 4 % Patch ADH..PATCH 1 PATCH TRANSDERMA (08:27)
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
--- NOTE | 2024-02-17 12:00 | HE.PHANOTE ---
PT OWN TESTOSTERONE Nursing came with triplicate form to pickle water pump operator testosterone. pt brought in 2 vials, both were used for pt on separate weeks, documented on pick sheet that they were brought up to the floor. Told nurse [place] to also document on their triplicate form that med was dispensed up to floor and used while patient was here.
== END 2024-02-17 11:58 | disposition home or self-care (01) | DRG 885 ==
LOC: HO.ED 17:49 → HO.PM5 01-31 14:57
PROVIDERS: Nurse Practitioner Family; Admitting Provider Clinical Nurse Specialist Psychiatric/Mental Health, Adult; Emergency Provider Emergency Medicine; Visit Provider Psychiatry & Neurology Psychiatry
DX: F25.0 Schizoaffective disorder, bipolar type (principal); N17.9 Acute kidney failure, unspecified; F43.10 Post-traumatic stress disorder, unspecified; F17.210 Nicotine dependence, cigarettes, uncomplicated; F64.0 Transsexualism; Z71.6 Tobacco abuse counseling; Z91.148 Patient's other noncompliance with medication regimen for other reason; Z79.899 Other long term (current) drug therapy
CPT/HCPCS: 36415; 80048; 80053; 80061; 80307; 81001; 81025; 82607; 82746; 83036; 83735; 84439; 84443; 84702; 85025; 87086; 87088; 87186; 93005; 99285; J1071; J2060; J2359

== ENCOUNTER 2024-01-31 14:53 | Outpatient (BNV) | payer MEDICARE, MEDICAID, SELFPAY | END 2024-01-31 16:18 | PROVIDERS: Admitting Provider Clinical Nurse Specialist Psychiatric/Mental Health, Adult; Emergency Provider Emergency Medicine; Visit Provider Internal Medicine Cardiovascular Disease | DX: R10.9 Unspecified abdominal pain (principal) | CPT/HCPCS: 93010 ==

== ENCOUNTER → 2024-01-31 14:53 | Outpatient (BNV) | payer MEDICARE, MEDICAID, SELFPAY | PROVIDERS: Admitting Provider Clinical Nurse Specialist Psychiatric/Mental Health, Adult; Emergency Provider Emergency Medicine; Visit Provider Psychiatry & Neurology Psychiatry | DX: F25.0 Schizoaffective disorder, bipolar type (principal); F43.10 Post-traumatic stress disorder, unspecified; N17.9 Acute kidney failure, unspecified | CPT/HCPCS: 90792; 99231; 99232; 99239 ==

== ENCOUNTER 2024-05-19 13:47 | Emergency (ER) | payer MEDICARE, MEDICAID, SELFPAY ==
--- NOTE | ~2024-05-19 | CT_ITS ---
EXAMINATION: CT ABDOMEN AND PELVIS WITHOUT CONTRAST CLINICAL INFORMATION: 33-year-old female with left abdominal and low back pain COMPARISON: March 05, 2023 TECHNIQUE: Multidetector volumetric imaging was performed from the superior aspect of the liver through the pubic symphysis. Sagittal and coronal reformatted images were obtained on the technologist's workstation. This CT examination was performed using dose optimization techniques as appropriate, variously including the following: *Automated exposure control *Adjustment of mA and/or kV according to patient size (this includes techniques or standardized protocols for targeted exams where dose is matched to indication/reason for exam; i.e. extremities or head) *Use of iterative reconstruction technique DLP: 441 mGy-cm FINDINGS: LUNG BASES: The visualized lung bases are unremarkable. LIVER, GALLBLADDER, AND BILIARY TREE: The liver is normal in size, shape, and attenuation. No focal hepatic lesion or biliary ductal dilatation is present. The gallbladder is unremarkable with no evidence of radiopaque gallstones, gallbladder wall thickening, or obvious pericholecystic inflammatory changes. PANCREAS: Unremarkable. SPLEEN: Unremarkable. ADRENAL GLANDS: Unremarkable. KIDNEYS AND URETERS: The kidneys are normal in size, shape, and attenuation. No hydronephrosis, hydroureter, or calculi seen. No perinephric stranding. BLADDER: Unremarkable. GASTROINTESTINAL TRACT: The small and large bowel are unremarkable. The appendix is not well seen. ABDOMINAL WALL: No significant hernia is appreciated. LYMPH NODES: Normal. VASCULAR: Unremarkable. PELVIC VISCERA: Uterus is massively enlarged, measured 7.4 x 7.0 x 9.8 cm with calcifications in no obvious fluid in the pelvis. OSSEOUS STRUCTURES: Unremarkable. CT/CT abdomen pelvis wo IV con IMPRESSION: Massively enlarged uterus. Correlate with pelvic ultrasound Fleischner guidelines were followed. Electronically signed by: Michael Law MD 05/19/2024 04:28 PM EDT
--- NOTE | ~2024-05-19 | US_ITS ---
EXAMINATION: US PELVIS CLINICAL INFORMATION: Abdominal pain. Suprapubic fullness. Uterine enlargement. COMPARISON: No prior pelvic ultrasound. CT scan of the abdomen and pelvis from earlier the same day. TECHNIQUE: Ultrasound of the pelvis is performed using both transabdominal and transvaginal transducers along with Doppler. Transvaginal imaging is performed due to inadequate visualization transabdominally. FINDINGS: No cine images are submitted, limiting the study. The uterus is retroverted. It measures 9.2 cm in length by 6.4 cm in AP dimension by 6.3 cm in transverse dimension. There is an approximately 1.5 cm, calcified, degenerated, intramural uterine leiomyoma in the lower uterine segment anteriorly. The endometrial stripe measures 8 mm in thickness. There appear to be 2.7 x 2.3 x 2.2 cm and 1.4 x 1.0 x 1.0 cm, relatively central structures isoechoic to surrounding soft tissues. There may be minimal fluid around portions of the structures. No fluid is seen in the endometrial cavity. The left ovary could not be visualized by the technologist. The right ovary measures 2.4 x 1.5 x 1.4 cm. It appears unremarkable on color Doppler and pulse Doppler waveform analysis. No adnexal mass is seen. No fluid is identified in the cul-de-sac. US/US pelvic and transvaginal IMPRESSION: No cine images submitted, limiting the study. 2.7 x 2.3 x 2.2 cm and 1.4 x 1.0 x 1.0 cm, relatively central uterine structures isoechoic to surrounding soft tissues. Question minimal fluid around portions of the structures. Differential diagnosis includes, but is not limited to, polypoid endometrial neoplasm, submucosal leiomyomata, etc. Gynecological evaluation is recommended. Left ovary not visualized. Electronically signed by: Sacha Mendoza MD 05/19/2024 06:21 PM EDT
[2024-05-19 14:00] VITALS: BP 112/74; PULSE 70; RESP 16; TEMP 36.6; O2SAT 98; BMI 32.6
--- NOTE | 2024-05-19 14:00 | ED.GENADULT ---
HPI - General Adult General Chief complaint: Abdominal Pain Stated complaint: uti Time Seen by Provider: 05/19/24 14:08 Source: patient Mode of arrival: ambulatory Limitations: no limitations History of Present Illness ED Provider: Warren Mckeon HPI narrative: This is a 33-year-old transgender female to male patient presenting to emergency department for evaluation of abdominal pain over the past week. Reports initial evaluation at an urgent care and was diagnosed with cystitis given a prescription for Keflex. Despite completing the entire course continuing to feel a fullness in the suprapubic region, intermittent urinary frequency, and abdominal pain that is diffuse but worse on the right. Reporting sharp stabbing pains on the right and diffuse lower back pain. Associated nausea but no vomiting. Endorses having chills last night, but no fever. Denies abnormal vaginal discharge or possibility for . Denies concerns for sexually transmitted infections. Admits to feeling constipated over the past week though did have a large formed bowel movement yesterday followed by multiple soft stools afterwards. No hematochezia or melena. Related Data Previous Rx's ?Medication ?Instructions ?Recorded testosterone cypionate 200 mg/mL 80 mg (0.4 mL) subcut QWEEK 7 days 02/09/24 intramuscular oil #0.4 mL cariprazine 4.5 mg capsule 4.5 mg PO DAILY 30 days #30 caps 02/17/24 lidocaine 4 % topical patch 1 patch transdermal DAILY PRN 02/17/24 (Lidocaine Pain Relief) lower back pain 30 days #30 ea ondansetron HCl 4 mg tablet 4 mg PO Q8H PRN nausea and 02/17/24 vomiting 14 days #30 tabs Allergies Allergy/AdvReac Type Severity Reaction Status Date / Time tree nut [TREE NUT] Allergy Severe Difficulty Verified 05/19/24 14:04 Breathing iodine [IODINE] Allergy Unknown Itching Verified 05/19/24 14:04 shellfish derived Allergy Unknown Hives Verified 05/19/24 14:04 [SHELLFISH DERIVED] trazodone Allergy Unknown Verified 05/19/24 14:04 Review of Systems Review of Systems: Yes all other systems are reviewed and are negative PMFSH Past Medical History Attestation statement: The following information was validated with the patient. Source: old records reviewed Medical History PTSD (post-traumatic stress disorder) Bankart lesion of left shoulder Surgical History Hx of colonoscopy Social History Social History (Updated 05/27/23 @ 11:14 by Gabby Pinto CMA) Household Members: None Housing: Apartment Are you a primary home health aide caregiver to a significant other at home: No Do you presently have visiting nurse or other home services: No Unable to assess alcohol history related to: Unknown Alcohol intake: current Alcohol intake frequency: holidays/special occasions only Patient Tobacco Use Status: Current everyday Tobacco user Tobacco use type: Cigar Cigarettes Per Day: 4 Years Smoked: Pt unsure e-Cigarette/Vaping Use: Never Used Second Hand Smoke Exposure: No Substance Use Type: Former Substance User Advance Directives: No Advance Directives Information Provided: No service: No Current occupational status: employed Current occupation: [employer] Sexual orientation: Not collected Physical Exam ED Vital Signs: Vital Signs - 24 hr 05/19/24 14:00 Temperature 97.9 F Pulse Rate 70 Respiratory Rate 16 Blood Pressure 112/74 Pulse Oximetry 98 Oxygen Delivery Method Room Air BMI result Body Mass Index 32.6 Appearance: Alert.?Oriented to person, place and time. No acute distress.?Normal affect. Eyes: Pupils equal, round and reactive to light.? ENT: Pharynx normal.?? Neck: Normal inspection.? Neck supple.?? CVS: Heart sounds normal. Normal heart rate and rhythm.? Pulses normal.?? Respiratory: No respiratory distress.? Lung sounds clear to auscultation bilaterally?? Abdomen: Soft with mid right-sided abdominal tenderness upon palpation, no rebound tenderness at McBurney's point, negative Weri sign, no rigidity or guarding. Mild R CVAT. Normoactive bowel sounds. No pulsatile mass.?? Skin: Skin warm and dry.? Normal skin color.? Extremities: No lower extremity edema.? Neuro: Moves all extremities spontaneously. Sensation intact bilaterally. Ambulates with normal steady gait. Course Course Course Narrative: This is an RME: Additional HPI, ROS, PE not included below will be deferred to primary provider. RME assessment and note performed by: Bita Chanel PA-C This is a [id number] assigned at who presents to the ER with complaints of abdominal pain x 1 week. Patient reports that 1 week ago they were diagnosed with a urinary infection, was prescribed Keflex. They completed the full course however patient states they are still experiencing fullness sensation in her bladder as well as abdominal pain. Also reporting low back pain. No CVA tenderness. Plan: Labs, UA Reevaluation(s) Reevaluation #1: PELVIC VISCERA: Uterus is massively enlarged, measured 7.4 x 7.0 x 9.8 cm with calcifications in no obvious fluid in the pelvis. CT/CT abdomen pelvis wo IV con IMPRESSION: Massively enlarged uterus. Correlate with pelvic ultrasound Findings from prior CT abdomen and pelvis w/ contrast in February of 2023 revealing: PELVIC VISCERA: The uterus is heterogeneous and abnormally enlarged, shows superimposed calcifications, most consistent with uterine fibroid. Follow-up nonemergent pelvic ultrasound may be considered for further clarification. Patient does report a known history of uterine fibroids however, Given her presentation of abdominal pain that has been unrelieved in light of treatment for urinary tract infection will obtain pelvic ultrasound at this time for re-evaluation. Declines abnormal vaginal discharge, abnormal vaginal bleeding. Denies to have internal pelvic examination. Denies concern for sexually transmitted infection. Amenable to self swabbing for bacterial vaginosis panel and chlamydia/gonorrhea. Reevaluation #2: Pelvic ultrasound reveals relatively central isoechoic to surrounding soft tissue with differential including neoplasm, submucosal leiomyomata etc. I reviewed these findings with patient. Expressed post outpatient follow-up with senior payroll specialist for further evaluation. Reviewed worrisome signs and symptoms that would warrant re-evaluation emergency department. Questions answered. Stable discharge. Medical Decision Making Medical Decision Making MDM Narrative: Patient is a 33-year-old transgender female to male patient who presents emergency department for evaluation of abdominal and back pain as per HPI. Abdominal examination most remarkable for mid right abdominal tenderness upon palpation and mild right CVAT, overall without signs of systemic toxicity found to be afebrile without tachycardia, no hypotension. Urinalysis with 2+ leukocyte esterase and 11-20 urine WBC with no urine bacteria, which appears consistent with prior urinalysis' however upon review of cultures these have grown Proteus mirabilis as well as group B strep making potentially pyelonephritis a possibility if perhaps a resistant UTI was present. Urine culture is pending at this time. No upper abdominal tenderness upon palpation, negative Weir sign, unlikely acute cholecystitis, choledocholithiasis, no fever or jaundice to suggest acute cholangitis, unlikely biliary colic secondary to cholelithiasis. Denies associated acid reflux, no tenderness upon palpation over the epigastrium or left upper quadrant to suggest gastritis, no recent hematemesis history less likely to suggest PUD. Denies excessive alcohol consumption, history of diabetes, lower suspicion acute pancreatitis. No rebound tenderness at McBurney's point, rigidity, guarding to suggest acute appendicitis. No tenderness of the left lower quadrant nor associated nausea, vomiting, diarrhea patient, hematochezia or melena to suggest diverticulitis or GI bleed. No appreciable hernia to suggest strangulation/incarceration. Lower suspicion for bowel obstruction. No distention or rigidity to suggest GI perforation. hCG is negative, unlikely ectopic , lower clinical suspicion for TOA/torsion. Differential Diagnosis Differential Diagnoses: The differential diagnosis associated with the presentation includes (See narrative above) Admission/Observation Consideration of admission/observation: Escalation of care including admission/observation considered (See narrative above ) Lab Data MDM Lab Attestation statement: I reviewed the patient's lab results. Mild leukopenia no anemia or thrombocytopenia. No electrolyte derangement. No JACKIE. 05/19/24 14:17 05/19/24 14:17 Labs: Lab Results 05/19/24 Range/Units 14:17 WBC 4.5 L (4.8-10.8) X10*3/uL RBC 4.88 (4.20-5.50) X10*6/uL Hgb 15.1 (12.0-16.0) g/dl Hct 44.7 (37.0-47.0) % MCV 91.6 (80.0-98.0) fL MCH 30.9 (27.0-33.0) pg MCHC 33.8 (31.0-35.0) g/dl RDW 13.6 (11.0-16.0) % Plt Count 302 (160-400) X10*3/uL MPV 8.9 L (9.4-12.3) fL Immature Gran % (Auto) 0.0 (0.0-0.4) % Neut % (Auto) 33.5 L (45-73) % Lymph % (Auto) 54.1 H (20-40) % [place] % (Auto) 7.3 (2-11) % Eos % (Auto) 4.7 H (0-4) % Baso % (Auto) 0.4 (0-2) % Lymph # (Auto) 2.4 (1.2-4.9) X10*3/uL [place] # (Auto) 0.3 (0.1-1.2) X10*3/uL Eos # (Auto) 0.2 (0.0-0.4) X10*3/uL Baso # (Auto) 0.0 (0.0-0.2) X10*3/uL Abs Immat Gran (auto) 0.00 (0.00-0.03) X10*3/uL Absolute Neuts (auto) 1.5 L (2.0-8.3) x10*3/uL Absolute Nucleated RBC 0.000 (0.0-0.012) X10*3/uL Nucleated RBC % (auto) 0.0 (0.0-0.2) /100WBC Sodium 140 (135-145) mmol/L Potassium 4.2 (3.3-5.1) mmol/L Chloride 104 (96-108) mmol/L Carbon Dioxide 28 (22-29) mmol/L Anion Gap 12 (12-20) BUN 10 (9-16) mg/dL Creatinine 1.13 (0.5-1.4) mg/dL Estim Creat Clear Calc 81.4 Estimated GFR 56 Random Glucose 93 (60-115) mg/dL Calcium 9.1 (8.4-10.2) mg/dL Magnesium 2.1 (1.6-2.6) mg/dL Total Bilirubin 0.4 (0.0-1.0) mg/dL Direct Bilirubin 0.1 (0.0-0.5) mg/dL AST 30 (5-31) U/L ALT 25 (0-31) U/L Alkaline Phosphatase 62 (39-117) U/L Total Protein 7.3 (6.5-8.0) g/dL Albumin 4.2 (3.5-5.0) g/dL Lipase 15 (8-78) U/L Urine Color Yellow Urine Appearance Clear Urine pH 7.0 (5.0-9.0) Ur Specific [place] 1.015 (1.005-1.025) Urine Protein Negative (Neg-Trace) mg/dL Urine Glucose (UA) Negative (Negative) mg/dL Urine Ketones Negative (Negative) mg/dL Urine Blood Negative (Negative) Urine Nitrite Negative (Negative) Ur Leukocyte Esterase Moderate (2+) H (Negative) Urine RBC 0-2 (0-2) /HPF Urine WBC 11-20 H (0-5) /HPF Ur Squamous Epith Cells 0-2 (0-2) /HPF Urine Bacteria None Seen (None Seen) Hyaline Casts 0-2 (0-2) /LPF Urine Test NEGATIVE (NEGATIVE) Radiology Impression Discussion of test interpretation with radiology: I have reviewed the radiologist's reading. Radiologist Impression: CT/CT abdomen pelvis wo IV con IMPRESSION: Massively enlarged uterus. Correlate with pelvic ultrasound US/US pelvic and transvaginal IMPRESSION: No cine images submitted, limiting the study. 2.7 x 2.3 x 2.2 cm and 1.4 x 1.0 x 1.0 cm, relatively central uterine structures isoechoic to surrounding soft tissues. Question minimal fluid around portions of the structures. Differential diagnosis includes, but is not limited to, polypoid endometrial neoplasm, submucosal leiomyomata, etc. Gynecological evaluation is recommended. Left ovary not visualized. Independent Historian Clinical information obtained from an independent historian. History obtained from or confirmed by: Parent External Record Review External record reviewed: Outpatient record Prescription Management I considered prescription management with: Pain Medication and Antibiotic Discharge Plan Discharge Clinical Impression: Abdominal pain Patient Disposition: Home, Self-Care Additional Instructions: As discussed on CT imaging today your uterus appeared quite enlarged, the ultrasound does reveal structures within the uterus with may be benign fibroid type tumors versus a cancerous tumor. We are not able to discern the difference with ultrasound imaging. You had mentioned in the history of fibroids in the past. I recommend that you contact your senior payroll specialist provider first thing Tuesday morning to arrange for a follow-up visit and they will consider any additional testing that is warranted. As discussed, CT imaging labs do not suggest an alternative cause for your continued symptoms of abdominal pain. You had completed a course of Keflex which should have treated a urinary tract infection, your initial urine testing today did not show evidence of bacteria in the urine or strong indication of a persistent urinary tract infection. This may be indicative of interstitial cystitis which is rather and inflammatory condition to the bladder without true infection. Your urine has been sent for culture to determine if there is in fact presence of bacteria that is growing. If there is a positive finding you will be contacted from the hospital in appropriate treatment will be discussed. You can take ibuprofen 200 mg, 3 tablets (600mg) every 6-8 hours as needed for pain, in addition to Tylenol 500 mg, 2 tablets (1,000mg) every 4-6 hours as needed for pain, but not to exceed 3 doses daily (3,000mg).? You may return to emergency department any new or worsening symptoms or concerns. Prescriptions: No Action testosterone cypionate 200 mg/mL oil 80 mg subcut QWEEK 7 Days Qty: 0.4 2RF cariprazine 4.5 mg capsule 4.5 mg PO DAILY 30 Days Qty: 30 1RF lidocaine [Lidocaine Pain Relief] 4 % Adhesive Patch,Medicated 1 patch transdermal DAILY PRN (Reason: lower back pain) 30 Days Qty: 30 1RF Protocol: Apply to: Apply to: Right Lower Back Rx Instructions: apply to lower back daily as needed ondansetron HCl 4 mg tablet 4 mg PO Q8H PRN (Reason: nausea and vomiting) 14 Days Qty: 30 0RF Referrals: Physician,Unknown J [Primary Care Provider] - Stand Alone Forms: Work/School Release Print Language: Vietnamese
[2024-05-19 14:21] LABS: MANUAL DIFF FLAG NO
[2024-05-19 14:22] LABS: Basophils Percent Auto 0.4 % (0-2); Eosinophils Absolute Auto 0.2 X10*3/uL (0.0-0.4); Eosinophils Percent Auto 4.7 % (0-4); Hematocrit 44.7 % (37.0-47.0); Hemoglobin 15.1 g/dl (12.0-16.0); Lymphocytes Absolute Auto 2.4 X10*3/uL (1.2-4.9); Lymphocytes Percent Auto 54.1 % (20-40); Mean Corpuscular HGB Conc 33.8 g/dl (31.0-35.0); Mean Corpuscular Hemoglobin 30.9 pg (27.0-33.0); Mean Corpuscular Volume 91.6 fL (80.0-98.0); Mean Platelet Volume 8.9 fL (9.4-12.3); Monocytes Absolute Auto 0.3 X10*3/uL (0.1-1.2); Monocytes Percent Auto 7.3 % (2-11); Neutrophils Absolute Auto 1.5 x10*3/uL (2.0-8.3); Neutrophils Percent Auto 33.5 % (45-73); Platelet Count 302 X10*3/uL (160-400); Red Blood Count 4.88 X10*6/uL (4.20-5.50); Red Cell Distribution Width 13.6 % (11.0-16.0); White Blood Count 4.5 X10*3/uL (4.8-10.8)
[2024-05-19 14:24] LABS: Appearance Urine Clear; Color Urine Yellow; Glucose Urine UA Negative (Negative); Leukocyte Esterase Urine Moderate (2+) (Negative); Nitrite Urine Negative (Negative); Specific Gravity - Urine 1.015 (1.005-1.025); UMIC TRIGGER UACC YES; Urine Blood Negative (Negative); Urine Ketones Negative (Negative); Urine Protein Negative (Neg-Trace)
[2024-05-19 14:30] LABS: Bacteria Urine None Seen (None Seen); Hyaline Casts Urine 0-2 /LPF (0-2); RBC Urine 0-2 /HPF (0-2); Squamous Epithelial Cell Urine 0-2 /HPF (0-2); UACC Culture Trigger YES
[2024-05-19 14:36] LABS: Alanine Aminotransferase 25 U/L (0-31); Albumin Level 4.2 g/dL (3.5-5.0); Alkaline Phosphatase 62 U/L (39-117); Anion Gap 12 (12-20); Aspartate Amino Transferase 30 U/L (5-31); Bilirubin Direct 0.1 mg/dL (0.0-0.5); Bilirubin Total 0.4 mg/dL (0.0-1.0); Blood Urea Nitrogen 10 mg/dL (9-16); Calcium 9.1 mg/dL (8.4-10.2); Carbon Dioxide 28 mmol/L (22-29); Chloride 104 mmol/L (96-108); Creatinine Clr Calc Pharmacy 81.4; Estimated Glomerular Filt Rate 56; Glucose Random 93 mg/dL (60-115); Lipase 15 U/L (8-78); Magnesium 2.1 mg/dL (1.6-2.6); Potassium 4.2 mmol/L (3.3-5.1); Sodium 140 mmol/L (135-145); Total Protein 7.3 g/dL (6.5-8.0)
[2024-05-19 15:44] LABS: UPreg QC Valid YES; Urine Pregnancy NEGATIVE (NEGATIVE)
[2024-05-19 18:42] VITALS: BP 112/74; PULSE 70; RESP 16; TEMP 36.6; O2SAT 98
[2024-05-20 03:32] LABS: CT PCR NOT DETECTED (Not Detect.); NG PCR NOT DETECTED (Not Detect.)
[2024-05-20 15:21] LABS: Bacterial Vaginosis PCR NEGATIVE (Negative); Candida Group PCR NOT DETECTED (Not Detect); Candida glab krusei PCR NOT DETECTED (Not Detect); Trichomonas vaginalis PCR NOT DETECTED (Not Detect)
== END 2024-05-19 18:42 | disposition home or self-care (01) ==
PROVIDERS: Nurse Practitioner Family; Physician Assistant Medical; Emergency Provider Emergency Medicine Emergency Medical Services
DX: R10.823 Right lower quadrant rebound abdominal tenderness (principal); N85.2 Hypertrophy of uterus; D25.1 Intramural leiomyoma of uterus; M54.50 Low back pain, unspecified; D72.819 Decreased white blood cell count, unspecified; R35.0 Frequency of micturition; R11.0 Nausea; R50.9 Fever, unspecified; F64.0 Transsexualism; Z72.89 Other problems related to lifestyle; Z79.890 Hormone replacement therapy; Z03.818 Encounter for observation for suspected exposure to other biological agents ruled out; F17.210 Nicotine dependence, cigarettes, uncomplicated; Z79.899 Other long term (current) drug therapy; Z87.440 Personal history of urinary (tract) infections
CPT/HCPCS: 0352U; 36415; 74176; 76830; 76856; 80048; 80076; 81001; 81025; 83690; 83735; 85025; 87086; 87491; 87591; 99284

== ENCOUNTER 2024-08-07 09:51 | Emergency (ER) | payer MEDICARE, MEDICAID, SELFPAY ==
--- NOTE | 2024-08-07 10:30 | ED_ITS ---
HPI - Abdominal Pain General Chief Complaint: Abdominal Pain Stated Complaint: Constipation, abd pain Time Seen by Provider: 08/07/24 16:31 Source: RN notes reviewed and old records reviewed History of Present Illness ED Provider: Belinda Chan PA-C HPI narrative: 33-year-old transgender FTM with a past medical history uterine fibroids, PTSD, schizoaffective, presenting to the ED complaining of lower abdominal pain and distension x few days, with associated dysuria. Also reports intermittent constipation however had normal BM today. Denies any pain or symptoms at present. Denies fever, chills, nausea, vomiting, hematuria, suspicious food intake, prior abdominal surgeries. Related Data Previous Rx's ?Medication ?Instructions ?Recorded testosterone cypionate 200 mg/mL 80 mg (0.4 mL) subcut QWEEK 7 days 02/09/24 intramuscular oil #0.4 mL cariprazine 4.5 mg capsule 4.5 mg PO DAILY 30 days #30 caps 02/17/24 lidocaine 4 % topical patch 1 patch transdermal DAILY PRN 02/17/24 (Lidocaine Pain Relief) lower back pain 30 days #30 ea ondansetron HCl 4 mg tablet 4 mg PO Q8H PRN nausea and 02/17/24 vomiting 14 days #30 tabs cefuroxime axetil 250 mg tablet 250 mg PO BID 7 days #14 tabs 08/07/24 phenazopyridine 200 mg tablet 200 mg PO TID PRN pain 6 doses #6 08/07/24 (Pyridium) tabs Allergies Allergy/AdvReac Type Severity Reaction Status Date / Time tree nut [TREE NUT] Allergy Severe Difficulty Verified 08/07/24 10:47 Breathing iodine [IODINE] Allergy Unknown Itching Verified 08/07/24 10:47 shellfish derived Allergy Unknown Hives Verified 08/07/24 10:47 [SHELLFISH DERIVED] trazodone Allergy Unknown Verified 08/07/24 10:47 Review of Systems Review of Systems Yes all other systems are reviewed and are negative Constitutional: Reports as per [facility] Past Medical History Attestation statement: The following information was validated with the patient. Source: old records reviewed Medical History PTSD (post-traumatic stress disorder) Bankart lesion of left shoulder Surgical History Hx of colonoscopy Social History Social History Household Members: None Housing: Apartment Are you a primary direct care worker to a significant other at home: No Do you presently have visiting nurse or other home services: No Unable to assess alcohol history related to: Unknown Alcohol intake: current Alcohol intake frequency: holidays/special occasions only Patient Tobacco Use Status: Current everyday Tobacco user Tobacco use type: Cigar Cigarettes Per Day: 4 Years Smoked: Pt unsure e-Cigarette/Vaping Use: Never Used Second Hand Smoke Exposure: No Substance Use Type: Former Substance User Advance Directives: No Advance Directives Information Provided: No service: No Current occupational status: employed Current occupation: [employer] Sexual orientation: Not collected Physical Exam ED Vital Signs: Vital Signs - 24 hr 08/07/24 10:44 08/07/24 13:34 Temperature 98.5 F 98.6 F Pulse Rate 82 63 Respiratory Rate 16 20 Blood Pressure 127/84 116/75 Pulse Oximetry 98 98 Oxygen Delivery Method Room Air Room Air BMI result Body Mass Index 33.3 Const General: cooperative, healthy appearing and no acute distress Orientation/consciousness: patient oriented x3 Limitations: no limitations HENMT Head: Yes normal to inspection and Yes atraumatic Ears: hearing grossly normal bilaterally General nose exam: Normal external nose present Face and sinus: Yes normal facial exam Eyes General: appearance normal, both eyes and all related structures EOM: EOMs intact bilaterally Neck Neck: Yes normal visual inspection and Yes no meningeal signs Resp Effort & Inspection: normal respiratory effort and no respiratory distress Cardio Rate: regular rate GI Inspection: Yes normal to inspection Palpation (GI): Soft to palpation, nontender, no guarding and not rigid General: Yes no CVA tenderness Back/Spine/Pelvis Back: no CVA tenderness Skin Rashes: no rashes Wounds: no wounds Neuro General: patient oriented x3, tone normal and no meningeal signs Cranial nerves: Yes CN's II-XII intact bilaterally Gait exam (Neuro): Normal gait present Extrem General: Yes normal to inspection Course Course Course Narrative: This is a Rapid Medical Examination (RME) performed by Gabriela Leon PA-C in triage. Full HPI, ROS, assessment and treatment plan per primary provider in the Main ED. 33 yo transgender female to male who presents to the ER for evaluation of abdominal pain and distention for the last 2-3 days after eating pitting plums for constipation. Reporting lower abdominal pain. Having small BMs this morning. Vomited once this last week. Reports irritation with urination but no burning, history of UTIs in the past. Reports may be . Abd is soft with minimal lower abdominal tenderness without rebound or guarding. Plan: labs, UA, Upreg - Acute on chronic leukopenia. Labs otherwise reassuring. UA infected will treat with p.o. Ceftin > patient is asymptomatic at present, requesting discharge home, has PCP to follow-up with Results discussed with patient including worrisome signs and symptoms and strict return precautions, and when to return to the emergency department. They verbalized understanding and feel safe for discharge at this time. Medical Decision Making Medical Decision Making MDM Narrative: 33-year-old transgender FTM with a past medical history uterine fibroids, PTSD, schizoaffective, presenting to the ED complaining of lower abdominal pain and distension x few days, with associated dysuria. On exam vital signs stable, NAD, nontoxic appearing, abdomen is soft and nontender, no CVAT. Patient is asymptomatic at present, requesting discharge. Concern for UTI vs fibroids vs ? ovarian cyst. Lower suspicion for appendicitis / diverticulitis, colitis, pancreatitis, for ovarian torsion without tenderness on exam Plan: Labs, UA, no need for imaging at this time. Please refer to course for remaining clinical decision making, interpretation of labs/imaging results, and discussions with consultants and/or family members. Differential Diagnosis Differential Diagnoses: The differential diagnosis associated with the presentation includes As above Admission/Observation Consideration of admission/observation: Escalation of care including admission/observation considered Lab Data [facility] Lab Attestation statement: I reviewed the patient's lab results. 08/07/24 10:58 08/07/24 10:58 Labs: Lab Results 08/07/24 08/07/24 08/07/24 Range/Units 10:55 10:58 13:33 WBC 3.9 L (4.8-10.8) X10*3/uL RBC 5.03 (4.20-5.50) X10*6/uL Hgb 15.9 (12.0-16.0) g/dl Hct 47.3 H (37.0-47.0) % MCV 94.0 (80.0-98.0) fL MCH 31.6 (27.0-33.0) pg MCHC 33.6 (31.0-35.0) g/dl RDW 13.2 (11.0-16.0) % Plt Count 308 (160-400) X10*3/uL MPV 9.3 L (9.4-12.3) fL Immature Gran % (Auto) 0.0 (0.0-0.4) % Neut % (Auto) 47.5 (45-73) % Lymph % (Auto) 41.1 H (20-40) % [place] % (Auto) 8.6 (2-11) % Eos % (Auto) 2.3 (0-4) % Baso % (Auto) 0.5 (0-2) % Lymph # (Auto) 1.6 (1.2-4.9) X10*3/uL [place] # (Auto) 0.3 (0.1-1.2) X10*3/uL Eos # (Auto) 0.1 (0.0-0.4) X10*3/uL Baso # (Auto) 0.0 (0.0-0.2) X10*3/uL Abs Immat Gran (auto) 0.00 (0.00-0.03) X10*3/uL Absolute Neuts (auto) 1.9 L (2.0-8.3) x10*3/uL Absolute Nucleated RBC 0.000 (0.0-0.012) X10*3/uL Nucleated RBC % (auto) 0.0 (0.0-0.2) /100WBC Sodium 138 (135-145) mmol/L Potassium 4.1 (3.3-5.1) mmol/L Chloride 104 (96-108) mmol/L Carbon Dioxide 31 H (22-29) mmol/L Anion Gap 7 L (12-20) BUN 10 (9-16) mg/dL Creatinine 1.23 (0.5-1.4) mg/dL Estim Creat Clear Calc 75.7 Estimated GFR 51 POC Glucose 71 (60-115) mg/dL Random Glucose 82 (60-115) mg/dL Calcium 9.0 (8.4-10.2) mg/dL Magnesium 2.0 (1.6-2.6) mg/dL Total Bilirubin 0.4 (0.0-1.0) mg/dL Direct Bilirubin 0.1 (0.0-0.5) mg/dL AST 22 (5-31) U/L ALT 22 (0-31) U/L Alkaline Phosphatase 55 (39-117) U/L Total Protein 7.3 (6.5-8.0) g/dL Albumin 4.1 (3.5-5.0) g/dL Lipase 11 (8-78) U/L Urine Color Urine Appearance Urine pH (5.0-9.0) Ur Specific Cast[place] (1.005-1.025) Urine Protein (Neg-Trace) mg/dL Urine Glucose (UA) (Negative) mg/dL Urine Ketones (Negative) mg/dL Urine Blood (Negative) Urine Nitrite (Negative) Ur Leukocyte Esterase (Negative) Urine RBC (0-2) /HPF Urine WBC (0-5) /HPF Ur Squamous Epith Cells (0-2) /HPF Urine Bacteria (None Seen) Hyaline Casts (0-2) /LPF Urine Test NEGATIVE (NEGATIVE) 08/07/24 Range/Units 16:50 WBC (4.8-10.8) X10*3/uL RBC (4.20-5.50) X10*6/uL Hgb (12.0-16.0) g/dl Hct (37.0-47.0) % MCV (80.0-98.0) fL MCH (27.0-33.0) pg MCHC (31.0-35.0) g/dl RDW (11.0-16.0) % Plt Count (160-400) X10*3/uL MPV (9.4-12.3) fL Immature Gran % (Auto) (0.0-0.4) % Neut % (Auto) (45-73) % Lymph % (Auto) (20-40) % [place] % (Auto) (2-11) % Eos % (Auto) (0-4) % Baso % (Auto) (0-2) % Lymph # (Auto) (1.2-4.9) X10*3/uL [place] # (Auto) (0.1-1.2) X10*3/uL Eos # (Auto) (0.0-0.4) X10*3/uL Baso # (Auto) (0.0-0.2) X10*3/uL Abs Immat Gran (auto) (0.00-0.03) X10*3/uL Absolute Neuts (auto) (2.0-8.3) x10*3/uL Absolute Nucleated RBC (0.0-0.012) X10*3/uL Nucleated RBC % (auto) (0.0-0.2) /100WBC Sodium (135-145) mmol/L Potassium (3.3-5.1) mmol/L Chloride (96-108) mmol/L Carbon Dioxide (22-29) mmol/L Anion Gap (12-20) BUN (9-16) mg/dL Creatinine (0.5-1.4) mg/dL Estim Creat Clear Calc Estimated GFR POC Glucose (60-115) mg/dL Random Glucose (60-115) mg/dL Calcium (8.4-10.2) mg/dL Magnesium (1.6-2.6) mg/dL Total Bilirubin (0.0-1.0) mg/dL Direct Bilirubin (0.0-0.5) mg/dL AST (5-31) U/L ALT (0-31) U/L Alkaline Phosphatase (39-117) U/L Total Protein (6.5-8.0) g/dL Albumin (3.5-5.0) g/dL Lipase (8-78) U/L Urine Color Yellow Urine Appearance Cloudy Urine pH 6.0 (5.0-9.0) Ur Specific [place] 1.010 (1.005-1.025) Urine Protein Negative (Neg-Trace) mg/dL Urine Glucose (UA) Negative (Negative) mg/dL Urine Ketones Negative (Negative) mg/dL Urine Blood Negative (Negative) Urine Nitrite Negative (Negative) Ur Leukocyte Esterase Large (3+) H (Negative) Urine RBC 0-2 (0-2) /HPF Urine WBC >50 H (0-5) /HPF Ur Squamous Epith Cells 0-2 (0-2) /HPF Urine Bacteria None Seen (None Seen) Hyaline Casts 0-2 (0-2) /LPF Urine Test (NEGATIVE) Radiology Impression Discussion of test interpretation with radiology: I have reviewed the radiologist's reading. External Record Review External record reviewed: Inpatient record, Office record, Outpatient record, Prior outpatient labs, Prior outpatient radiology, Primary care record and Outside ED record Tests considered The following testing was considered but not selected: As above Prescription Management I considered prescription management with: Pain Medication Chronic Conditions Patient?s care impacted by: Other Social Determinants Patient?s care significantly limited by Social Determinants of Health including: Other Social Determinant of Health Medications Administered Discontinued Medications Generic Name Dose Route Start Last Admin Trade Name Freq PRN Reason Stop Dose Admin Ondansetron HCl 4 mg 08/07/24 12:47 08/07/24 12:48 Ondansetron Odt 4 Mg Tab.Rapdis TRANSLINGU 08/07/24 12:48 4 mg ONCE ONE Administration Discharge Plan Discharge Clinical Impression: UTI (urinary tract infection) Patient Disposition: Home, Self-Care Instructions: Urinary Tract Infection in Women (DC) Additional Instructions: you have a urine infection. Your labs were otherwise unremarkable Ceftin as an antibiotic please take as prescribed until completion Pyridium will help with urinary discomfort, this will turn your urine orange, this is normal Please follow-up with your doctor as well as your OBGYN If her symptoms persist or worsen return to the emergency department Prescriptions: New cefuroxime axetil 250 mg tablet 250 mg PO BID 7 Days Qty: 14 0RF phenazopyridine [Pyridium] 200 mg tablet 200 mg PO TID PRN (Reason: pain) Qty: 6 0RF No Action testosterone cypionate 200 mg/mL oil 80 mg subcut QWEEK 7 Days Qty: 0.4 2RF cariprazine 4.5 mg capsule 4.5 mg PO DAILY 30 Days Qty: 30 1RF lidocaine [Lidocaine Pain Relief] 4 % Adhesive Patch,Medicated 1 patch transdermal DAILY PRN (Reason: lower back pain) 30 Days Qty: 30 1RF Protocol: Apply to: Apply to: Right Lower Back Rx Instructions: apply to lower back daily as needed ondansetron HCl 4 mg tablet 4 mg PO Q8H PRN (Reason: nausea and vomiting) 14 Days Qty: 30 0RF Referrals: Karin Cruz MD [Primary Care Provider] - 3 days Print Language: Japanese
[2024-08-07 10:44] VITALS: BP 127/84; PULSE 82; RESP 16; TEMP 36.9; O2SAT 98; BMI 33.3
[2024-08-07 11:03] LABS: MANUAL DIFF FLAG NO
[2024-08-07 11:04] LABS: Basophils Percent Auto 0.5 % (0-2); Eosinophils Absolute Auto 0.1 X10*3/uL (0.0-0.4); Eosinophils Percent Auto 2.3 % (0-4); Hematocrit 47.3 % (37.0-47.0); Hemoglobin 15.9 g/dl (12.0-16.0); Lymphocytes Absolute Auto 1.6 X10*3/uL (1.2-4.9); Lymphocytes Percent Auto 41.1 % (20-40); Mean Corpuscular HGB Conc 33.6 g/dl (31.0-35.0); Mean Corpuscular Hemoglobin 31.6 pg (27.0-33.0); Mean Platelet Volume 9.3 fL (9.4-12.3); Monocytes Absolute Auto 0.3 X10*3/uL (0.1-1.2); Monocytes Percent Auto 8.6 % (2-11); Neutrophils Absolute Auto 1.9 x10*3/uL (2.0-8.3); Neutrophils Percent Auto 47.5 % (45-73); Platelet Count 308 X10*3/uL (160-400); Red Blood Count 5.03 X10*6/uL (4.20-5.50); Red Cell Distribution Width 13.2 % (11.0-16.0); White Blood Count 3.9 X10*3/uL (4.8-10.8)
[2024-08-07 11:14] LABS: UPreg QC Valid YES; Urine Pregnancy NEGATIVE (NEGATIVE)
[2024-08-07 11:22] LABS: Alanine Aminotransferase 22 U/L (0-31); Albumin Level 4.1 g/dL (3.5-5.0); Alkaline Phosphatase 55 U/L (39-117); Anion Gap 7 (12-20); Aspartate Amino Transferase 22 U/L (5-31); Bilirubin Direct 0.1 mg/dL (0.0-0.5); Bilirubin Total 0.4 mg/dL (0.0-1.0); Blood Urea Nitrogen 10 mg/dL (9-16); Carbon Dioxide 31 mmol/L (22-29); Chloride 104 mmol/L (96-108); Creatinine Clr Calc Pharmacy 75.7; Estimated Glomerular Filt Rate 51; Glucose Random 82 mg/dL (60-115); Lipase 11 U/L (8-78); Potassium 4.1 mmol/L (3.3-5.1); Sodium 138 mmol/L (135-145); Total Protein 7.3 g/dL (6.5-8.0)
[2024-08-07] MEDS: Ondansetron ODT 4 MG TAB.RAPDIS TRANSLINGU (12:48)
[2024-08-07 13:34] VITALS: BP 116/75; PULSE 63; RESP 20; TEMP 37; O2SAT 98
[2024-08-07 13:38] LABS: Glucose, Whole Blood 71 mg/dL (60-115)
[2024-08-07 16:59] LABS: Appearance Urine Cloudy; Color Urine Yellow; Glucose Urine UA Negative (Negative); Leukocyte Esterase Urine Large (3+) (Negative); Nitrite Urine Negative (Negative); UMIC TRIGGER UACC YES; Urine Blood Negative (Negative); Urine Ketones Negative (Negative); Urine Protein Negative (Neg-Trace)
[2024-08-07 17:01] LABS: Bacteria Urine None Seen (None Seen); Hyaline Casts Urine 0-2 /LPF (0-2); RBC Urine 0-2 /HPF (0-2); Squamous Epithelial Cell Urine 0-2 /HPF (0-2); UACC Culture Trigger YES; WBC Urine >50 /HPF (0-5)
== END 2024-08-07 18:11 | disposition home or self-care (01) ==
PROVIDERS: Physician Assistant; Emergency Provider Internal Medicine; PCP Family Medicine
DX: N39.0 Urinary tract infection, site not specified (principal); R10.2 Pelvic and perineal pain; R30.0 Dysuria; F17.210 Nicotine dependence, cigarettes, uncomplicated; Z79.899 Other long term (current) drug therapy
CPT/HCPCS: 36415; 80048; 80076; 81001; 81025; 82947; 83690; 83735; 85025; 87086; 99282; 99283

== ENCOUNTER 2025-03-13 08:52 | Emergency (ER) | payer MEDICARE, MEDICAID, SELFPAY ==
[2025-03-13 09:04] VITALS: BP 117/69; BP 126/100; PULSE 64; PULSE 78; RESP 17; TEMP 36.9; O2SAT 100; O2SAT 97; BMI 33.3
[2025-03-13 09:08] VITALS: BP 117/69; PULSE 64; RESP 17; TEMP 36.9; O2SAT 97
--- NOTE | 2025-03-13 09:17 | PC.NURSE ---
Pt comes to ED today from home via EMS with c/o PATE, Abd pain, and back pain. Pt reports PATE/Migraine on Agust 1st that would not go away therefore took a whole bottle of Tylenol. Afterwards, Pt had abd pain with n/v and now has ongoing RLQ pain with diarrhea. Pt denies SI/HI at this time and denies the ingestion of Tylenol as an attempt on his life. Pt reports he is in the process of transitioning (from female to male.) Pt reports a Hx of 3 fibroids and frequent UTI's. He is unsure of when his last menstrual period was. A&Ox3 VSS, afebrile Skin is warm and dry Breaths and speech are even and unlabored. Pt does not appear to be sensitive to light or sound. NAD noted at this time.
[2025-03-13 09:34] LABS: Appearance Urine Clear; Glucose Urine UA Negative (Negative); PH 7.5 (5.0-9.0); Specific Gravity - Urine 1.010 (1.005-1.025); UMIC TRIGGER UACC YES
[2025-03-13 09:46] LABS: UACC Culture Trigger YES
--- OUTSIDE RECORDS SUMMARY | 2025-03-13 09:54 | XMS_ITS | Encounter Summary ---
Author Organization [facility] Address [address] [place] [phone] Phone Care Team Providers Care [employer] Music Director Name Role Phone Karin Cruz MD, MPH Primary Care Provid er Shekhar Daigle MD Primary Care Provider [phone] Encounter Details Date Type Department Care Team (Late st Contact Info) Description 12/31/2022 Procedure Pass [facility], [address] [id number] Social History Tobacco Use Types Packs/Day Years Used Date Smoking Tobacco: Light Smoker Smokeless Tobacco: Never Alcohol Use Standard Drinks/Week Comments Not Currently 0 (1 standard drink = 0.6 oz pur e alcohol) SOCIALLY Education Answer Date Recorded Are you interested in more education? Not on jeremi e 11/12/2022 Are you concerned about learning? Not on file 11/12/2022 No 11/12/2022 No 11/12/2022 Digital Access Answer Date Recorded No 12/14/2022 No 12/14/2022 Reliable internet access at home? Not on file 12/14/2022 Device with a working camera? Not on file Comments No Sex and Gender Information Value Date Recorded Sex Assigned at Female 03/14/2020 1:12 PM EDT Legal Sex Female 3:26 PM EDT Gender Identity Transgender Male 03/14/2020 1:12 PM EDT Sexual Orientation Bisexual 10/03/2023 6: 30 PM EDT Sexual Orientation Queer 10/03/2023 6: 30 PM EDT documented as of this encounter Plan of Treatment Upcoming Encounters Date Type Department Care Team (Late st Contact Info) Description 03/15/2025 3:40 PM EDT Office Visit [facility] [address] [place] [address] Shekhar Daigle MD [address] [facility] [address] [place] [address] 03/26/2025 1:30 PM EDT Telemedicine - audio only [facility] Plastic Surgery [address] [place] [phone] Anna Ventura PA-C [address] [place] [phone] 04/08/2025 8:00 AM EDT Pre-Admission Testing Pre Procedure Evaluation [address] [place] [phone] Austin Le MD [address] [place] [phone] 04/09/2025 Procedure Pass [place] Admitting Dept - Virtual Department [address] [place] [phone] 04/09/2025 11:08 AM EDT Hospital Encounter OR Admitting Dept - Virtual Department [address] [place] [phone] Austin Le MD [address] [place] [address], [address] [address] 04/09/2025 11:08 AM EDT - 04/09/2025 2:46 PM EDT Surgery OR Admitting Dept - Virtual Department [address] [place] [phone] Austin Le MD [address] [place] [address], [address] [address] MASTECTOMY 04/15/2025 1:00 PM EDT Office Visit [facility] Plastic Surgery [address] [place] [address] Austin Le MD [address] [place] [address], [address] [place] [phone] 04/23/2025 1:30 PM EDT Office Visit [facility]astic Surgery [address] [place] [address] Anna Ventura PA-C [address] [place] [phone] 07/30/2025 1:40 PM EST Office Visit [facility] [address] [place] [address] Shekhar Daigle MD [address] [place] [phone] 02/04/2026 3:00 PM EDT Office Visit [address] [address] Karin Crzu MD, MPH [address] [place] [phone] [email or web address] Shekhar Daigle MD [address] [place] [phone] Scheduled Procedures Name Priority Associated Diagnoses Date/Ti me MASTECTOMY gender dysphoria 04/09/2025 11:08 AM EDT RECONSTRUCTION NIPPLE AREOLA gender dysphoria 04/09/2025 11:08 AM EDT documented as of this encounter Visit Diagnoses Not on filedocumented in this encounter Care Teams [employer] Music Director Relationship Specialty Start Date End Date Karin Cruz MD, MPH [address] [phone] [email or web address] PCP - General Family Medicine 03/21/20 02/07/25 Shekhar Daigle MD [address] [address] [email or web address] PCP - General Family Medicine 02/08/25 documented as of this encounter Additional Source Comments The information contained in this document represents components of the legal health record. It is not the complete legal health record.[facility]
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
--- OUTSIDE RECORDS SUMMARY | 2025-03-13 09:54 | XMS_ITS | Encounter Summary ---
Author Organization [facility] Address [address] [place] [address] Phone Care Team Providers Care Mobility Engineer Name Role Phone Karin Cruz MD, MPH Primary Care Provid er Shekhar Daigle MD Primary Care Provider [phone] Encounter Details Date Type Department Care Team (Late Contact Info) Description 11/19/2020 Ancillary Orders Virtual Department [address] [place] [address] Karin Cruz MD, MPH [address] [facility] [address] [place] [address] [email or web address] At high risk for breast cancer Social History Tobacco Use Types Packs/Day Years Used Date Smoking Tobacco: Light Smoker Smokeless Tobacco: Never Alcohol Use Standard Drinks/Week Comments Yes 0 (1 standard drink = 0.6 oz pur e alcohol) Comments No Sex and Gender Information Value Date Recorded Sex Assigned at Female 03/14/2020 1:12 PM EDT Legal Sex Female 3:26 PM EDT Gender Identity Transgender Male 03/14/2020 1:12 PM EDT Sexual Orientation Bisexual 10/03/2023 6: 30 PM EDT Sexual Orientation Queer 10/03/2023 6: 30 PM EDT documented as of this encounter Plan of Treatment Upcoming Encounters Date Type Department Care Team (Late Contact Info) Description 03/15/2025 3:40 PM EDT Office Visit [facility] [place] [address] [place] [address] Shekhar Daigle MD [address] [address] 03/26/2025 1:30 PM EDT Telemedicine - audio only [facility] Plastic Surgery [address] [place] [address] Anna Ventura PA-C [address] [place] [address] 04/08/2025 8:00 AM EDT Pre-Admission Testing Pre Procedure Evaluation [address] [place] [address] Austin Le MD [address] [place] [address] 04/09/2025 Procedure Pass OR Admitting Dept - Virtual Department [address] [place] [address] 04/09/2025 11:08 AM EDT Hospital Encounter OR Admitting Dept - Virtual Department [address] [place] [address] Austin Le MD [address] [place] [address] 04/09/2025 11:08 AM EDT - 04/09/2025 2:46 PM EDT Surgery OR Admitting Dept - Virtual Department [address] [place] [address] Austin Le MD [address] [place] [address] MASTECTOMY 04/15/2025 1:00 PM EDT Office Visit [facility] [address] [place] [address] Austin Le MD [address] [place] [address], [address] [place] [address] 04/23/2025 1:30 PM EDT Office Visit [facility] [address] [place] [address] Anna Ventura PA-C [address] [place] [address], [address] [place] [address] [email or web address] 07/30/2025 1:40 PM EST Office Visit [facility] Primary Care [address] [place] [address] Shekhar Daigle MD [address] [place] [address] [email or web address] 02/04/2026 3:00 PM EDT Office Visit [facility] Primary Care [address] [place] [address] Karin Cruz MD, MPH [address] [place] [address] [email or web address] Shekhar Daigle MD [address] [place] [address] [email or web address] Scheduled Procedures Name Priority Associated Diagnoses Date/Ti me MASTECTOMY gender dysphoria 04/09/2025 11:08 AM EDT RECONSTRUCTION NIPPLE AREOLA gender dysphoria 04/09/2025 11:08 AM EDT documented as of this encounter Results * BI MAMMOGRAM SCREENING WITH TOMOSYNTHESIS WITH CAD (BILATERAL) (02/12/2021 3:46 PM EDT) Anatomical Region Laterality Modality Breast Left, Breast Right, Breast Bilateral Bila teral Mammography 02/12/2021 5:50 PM EDT Impressions 02/12/2021 5:52 PM EDT No mammographic findings of malignancy on baseline exam. BI-RADS CATEGORY: 2 - Benign finding. DENSITY: There are scattered fibroglandular densities. Narrative 02/12/2021 5:52 PM EDT Bilateral full-field digital screening mammography is obtained and read in conjunction with computer-aided detection. Tomosynthesis as well as 2-D C view imaging of both breasts in two planes also obtained. This is a baseline exam. No worrisome asymmetries or masses. No suspicious calcifications. No areas of architectural distortion. No skin or nipple finding of concern is appreciated. Some faint nodular areas are noted, more on the right, but no area appears more suspicious than another and no suspicious features are identified. Procedure Note Jaden Mooney MD - 02/12/2021 Bilateral full-field digital screening mammography is obtained and read inconjunction with computer-aided detection. Tomosynthesis as well as 2-D Cview imaging of both breasts in two planes also obtained. This is abaseline exam. No worrisome asymmetries or masses. No suspicious calcifications. Noareas of architectural distortion. No skin or nipple finding of concernis appreciated. Some faint nodular areas are noted, more on the right,but no area appears more suspicious than another and no suspiciousfeatures are identified. IMPRESSION: No mammographic findings of malignancy on baseline exam. BI-RADS CATEGORY: 2 - Benign finding. DENSITY: There are scattered fibroglandular densities. Karin Cruz MD, MPH [facility] Kailee adriana Result documented in this encounter Visit Diagnoses Diagnosis At high risk for breast cancer documented in this encounter Care Teams Mobility Engineer Relationship Specialty Start Date End Date Karin Cruz MD, MPH [address] [place] [address] PCP - General Family Medicine 9/4/20 7/24/25 Shekhar Daigle MD [address] [place] [address] [email or web address] PCP - General Family Medicine 02/08/25 documented as of this encounter Additional Source Comments The information contained in this document represents components of the legal health record. It is not the complete legal health record.[facility]
--- OUTSIDE RECORDS SUMMARY | 2025-03-13 09:54 | XMS_ITS | Encounter Summary ---
Author Organization [facility] Address [address] [place] [address] Phone Care Team Providers Care Corporate Compliance Officer Name Role Phone Karin Cruz MD, MPH Primary Care Provid er Shekhar Daigle MD Primary Care Provider [phone] Encounter Details Date Type Department Care Team (Late st Contact Info) Description 11/19/2020 [facility] Orders [facility] [address] [facility] [address] [place] [address] Karin Cruz MD, MPH [address] [facility] [address] [place] [address] [email or web address] Social History Tobacco Use Types Packs/Day Years [...] Description 03/15/2025 3:40 PM EDT Office Visit [facility] [place] [address] [facility] [address] [place] [address] Shekhar Daigle MD [address] [address] 03/26/2025 1:30 PM EDT Telemedicine - audio only [facility] Plastic Surgery [address] [place] [address] Anna Ventura PA-C [address] [place] [address] 04/08/2025 8:00 AM EDT Pre-Admission Testing Pre Procedure Evaluation [address] [place] [address] Austin Le MD [address] [place] [address] 04/09/2025 Procedure Pass OR Admitting Dept - Virtual Department [address] [place] [address] 04/09/2025 11:08 AM EDT Hospital Encounter OR Admitting Dept - Virtual Department [address] [place] [address] Austin Le MD [address] [place] [address] 04/09/2025 11:08 AM EDT - 04/09/2025 2:46 PM EDT Surgery OR Admitting Dept - Virtual Department [address] [place] [address] Austin Le MD [address] [place] [address] MASTECTOMY 04/15/2025 1:00 PM EDT Office Visit [facility] [address] [place] [address] Austin Le MD [address] [place] [address], [address] [address] [email or web address] 04/23/2025 1:30 PM EDT Office Visit [facility] Surgery [address] [place] [address] Anna Ventura PA-C [address] [place] [address] [email or web address] 07/30/2025 1:40 PM EST Office Visit [facility] Primary Care [address] [place] [address] Shekhar Daigle MD [address] [place] [address] [email or web address] 02/04/2026 3:00 PM EDT Office Visit [facility] Primary [address] [address] Karin Cruz MD, MPH [address] [place] [address] [email or web address] Shekhar Daigle MD [address] [place] [address] [email or web address] Scheduled Procedures Name Priority Associated Diagnoses Date/Ti me MASTECTOMY gender dysphoria 04/09/2025 11:08 AM EDT RECONSTRUCTION NIPPLE AREOLA gender dysphoria 04/09/2025 11:08 AM EDT documented as of this encounter Visit Diagnoses Not on filedocumented in this encounter Care Teams Corporate Compliance Officer Relationship Specialty Start Date End Date Karin Cruz MD, MPH [address] [place] [address] PCP - General Family Medicine 03/21/20 02/07/25 Shekhar Daigle MD [address] [place] [address] [email or web address] PCP - General Family Medicine 02/08/25 documented as of this encounter Additional Source Comments The information contained in this document represents components of the legal health record. It is not the complete legal health record.[facility]
--- OUTSIDE RECORDS SUMMARY | 2025-03-13 09:54 | XMS_ITS | Encounter Summary ---
Author Organization [facility] Address [address] [place] [address] Phone Care Team Providers Care Manager Ed Name Role Phone Karin Cruz MD, MPH Primary Care Provid er Shekhar Daigle MD Primary Care Provider [phone] Encounter Details Date Type Department Care Team (Late st Contact Info) Description 11/19/2020 Procedure Pass [facility], [address] [address] Social History Tobacco Use Types Packs/Day Years Used Date Smoking Tobacco: Light Smoker Smokeless Tobacco: Never Alcohol Use Standard Drinks/Week Comments Yes 0 (1 standard drink = 0.6 oz pur e alcohol) SOCIALLY Comments No Sex and Gender Information Value [...] Description 03/15/2025 3:40 PM EDT Office Visit [facility] [address] [facility] [address] [place] [address] Shekhar Daigle MD 15 [facility] [address] [place] [address] 03/26/2025 1:30 PM EDT Telemedicine - audio only [facility] Plastic Surgery [address] [place] [address] Anna Ventura PA-C [address] [place] [address] 04/08/2025 8:00 AM EDT Pre-Admission Testing Pre Procedure Evaluation [address] [place] [address] Austin Le MD [address] [place] [address] 04/09/2025 Procedure Pass OR Admitting Dept - Virtual Department [address] [place] [address] 04/09/2025 11:08 AM EDT Hospital Encounter OR Admitting Dept - Virtual Department [address] [place] [address] Austin Le MD [address] [place] [address] 04/09/2025 11:08 AM EDT - 04/09/2025 2:46 PM EDT Surgery OR Admitting Dept - Virtual Department [address] [place] [address] Austin Le MD [address] [place] [address] MASTECTOMY 04/15/2025 1:00 PM EDT Office Visit [facility] Plastic Surgery [address] [place] [address] Austin Le MD [address] [place] [address] 04/23/2025 1:30 PM EDT Office Visit [facility]astic Surgery [address] [place] [address] Anna Ventura PA-C [address] [place] [address] [email or web address] 07/30/2025 1:40 PM EST Office Visit [facility] Primary Care [address] [place] [address] Shekhar Daigle MD [address] [place] [address] [email or web address] 02/04/2026 3:00 PM EDT Office Visit [address] [address] Karin Cruz MD, MPH [address] [place] [address] Shekhar Daigle MD [address] [place] [address] [email or web address] Scheduled Procedures Name Priority Associated Diagnoses Date/Ti me MASTECTOMY gender dysphoria 04/09/2025 11:08 AM EDT RECONSTRUCTION NIPPLE AREOLA gender dysphoria 04/09/2025 11:08 AM EDT documented as of this encounter Visit Diagnoses Not on filedocumented in this encounter Care Teams Manager Ed Relationship Specialty Start Date End Date Karin Cruz MD, MPH [address] [place] [address] [email or web address] PCP - General Family Medicine 03/21/20 02/07/25 Shekhar Daigle MD [address] [address] [email or web address] PCP - General Family Medicine 02/08/25 documented as of this encounter Additional Source Comments The information contained in this document represents components of the legal health record. It is not the complete legal health record.[facility]
--- OUTSIDE RECORDS SUMMARY | 2025-03-13 09:55 | XMS_ITS | Encounter Summary ---
Author Organization [facility] Address [address] [facility] [address] [place] [phone] Phone Care Team Providers Care Shim Plug Cutter Name Role Phone Karin Cruz MD, MPH Primary Care Provid er Shekhar Daigle MD Primary Care Provider [phone] Reason for Visit * Reason Onset Date Comments [employer] Prior Auth for Top Surgery 01/24/2025 Encounter Details Date Type Department Care Team (Late st Contact Info) Description 01/24/2025 Telephone [facility] Plastic Surgery [address] [place] [address] Austin Le MD [address] [place] [address] [email or web address] Hum[employer] Prior Auth for Top Surgery Social History Tobacco Use Types Packs/Day Years Used Date Smoking Tobacco: Light Smoker Smokeless Tobacco: Never Comments:1-2 cigarettes a we ek Alcohol Use Standard Drinks/Week Comments Not Currently 0 (1 standard drink = 0.6 oz pur e alcohol) SOCIALLY Child or Family Care Answer Date Record ed Do you have problems with on e of the following making it difficult for you to work, study, or receive health care? No 10/17/2024 Education Answer Date Recorded Are you interested in help w ith more adult education (for example, completing high school, GED, job training, learning the [place] language, technical skills, or developing parenting skills)? [...] your housing situation today? I have lupis sing 10/17/2024 How many times have you move [...] PM EDT documented as of this encounter Progress Notes * Emmy Tyler - 03/11/2025 9:54 AM EDT Received notice from [employer] approved #[id number] valid 04/09/25-07/08/25. * Emmy Tyler - 03/11/2025 8:41 AM EDT Therapy letter was received and submit on portal as well as faxed in on 03/08/25 As of 03/11/25 - received another 3 notices from [employer] stating unable to approve request due to insufficient information provided requesting Physician Discussion or additional information be submitted LALA. This is the same letter we received about 4-5 times throughout last week. Called [employer] and spoke with Milka (ref # Milka [id number] 03/11/25) - she advised what she can do is send a message to who is no yet in office, but she can advise to him that the updated therapy letter was sent in on 03/08/25 and they do have that. She will provide him my direct line as well in case he needs to call me back for anything. I will call again this afternoon to check on the status. * Emmy Tyler - 03/04/2025 9:06 AM EDT Got online [employer] portal access & submitted prior auth w/ clinicals on 02/26/25. Call from at [employer] 03/04/25 - therapy letter is to old for them to be able to accept. Advised our deadline is 03/11/25 to be able to fax the new one in to [phone]. Jaime & therapist are already aware a new letter is needed and stated it will be sent over shortly. Waiting on letter then will fax. states pt meets all other criteria so they just need that letter then should be all set. * Emmy Tyler - 02/22/2025 1:11 PM EDT called [employer] at [phone] (option 5 then 6) and spoke with Margi. She states ticket is still pending, more information is needed for IT to complete the ticket, they have questions about the diagnosis. Margi states that the person who submitted the original ticket is out so they will send the questions that IT has over to their pile driving supervisor. She said she could not guarantee that this would be very fast moving but typically the turn around time for tickets like this are 5-15 business days. She advised the best thing to do would be to try to get set up for an [employer] portal and then Ican check on their the progress of if that diagnosis code gets added in or not. I will plan to callagain next week to check on status. * Emmy Tyler - 02/11/2025 4:48 PM EDT 02/06/25 - called and LVM for Elinor at [facility] because we received conflicting letters regarding Prior Auth for [id number]. Received letter from [employer] stating unable to process request also received letter from [employer] saying approved - asked for call back to clarify. 02/11/25 - called [employer] at [phone]. Spoke with Kassandra to try and [place] [id number]. The ticket for getting diagnosis code F64.0 into their system still has not been resolved. She got her pile driving supervisor involved who will escalate this and reach out to her higher ups about it. Ayesha she'd call me back tomorrow morning with an update. * Emmy Tyler - 01/29/2025 12:45 PM EDT Additional Clinical from PCP faxed to Elinor @ [facility]. Updated therapy letter and clinical notes unable to be obtained by 1pm deadline. Voicemail was left at 12:37pm 01/29 accepting offer of [id number]. Dr. Austin Le will await that call. * Madeline Zambrano RN - 01/29/2025 11:21 AM EDT Letter faxed to [facility] at [phone] * Shekhar Daigle MD - 01/29/2025 10:35 AM EDT Do I have any sooner availablity to do this pre-op visit? It can be a [address] Davidson * Emmy Tyler - 01/29/2025 8:59 AM EDT Fax came in 01/25 stating additional information required. Letter is for cpt 11833 so from [employer] although it states [employer] on letter, not [employer]. Letter states that additional information is requiredby 11am on 01/28. I was not in the office 01/25 or 01/28 and letter was not brought to my attention until I saw it on my desk when I came back into the office 01/29 which is now past deadline. Letter states they needed recent clinical notes from mental health professional and pcp with documentation absence of a mental or physical impairment that would preclude a fully informed decision and/or consent. Also, a referral letter from mental health professional stating that the individual hashad at minimum 12 months of psychotherapy[y sessions attesting to the following: persistent, well-documented diagnosis of gender dysphoria according to the DSM-5 with clinical notes AND preoperative surgical clearance based on medical and psychological evaluation by a licensed healthcare professional to assess whether other coexisting conditions are regulated, maintained or managed without active exacerbation or concerns. Letter also offers a [id number] for the provider to talk to their medical collections representative prior to a determination being made. Request for this must be made by 01/29 @ 1pm for this. I called Elinor Raymundo (clinical reviewer who is requesting the information) to try and get morespecific details on what they need and when I have until to submit it. She said she needs an updated therapy letter addressing he individual has had at minimum 12 months of psychotherapy[y sessions attesting to the following: persistent, well-documented diagnosis of gender dysphoria according to the DSM-5 with clinical notes from a few most recent sessions. AND (can be from pcp) preoperative surgical clearance based on medical and psychological evaluationby a licensed healthcare professional to assess whether other coexisting conditions are regulated, maintained or managed without active exacerbation or concerns. She needs all of this by today 01/29 @ 1pm, otherwise they will have to make the determination with the clinicals they have. Which will likely be denied then we will have to go through a formal appealprocess. She aslo stated if I want to accept the offer of a peer to peer call, I need to inform Aleksandra 1pm today. I will attempt to contact pts pcp & therapist to see what can be done by this afternoon and request the peer to peer if I cannot get the required information in time. * Emmy Tyler - 01/24/2025 1:04 PM EDT Started prior auth process for [facility] Medicare. Called, was advised that both cpt 69262 & [id number] handled by 3rd alliance party vendors. Cpt 66021 by [employer], 75717 by [employer]. Called [employer] at [phone] and spoke with NANCY. Auth was created for cpt 26443 with pending case #[id number]. Clinicals faxed to [phone] Called [employer] at [phone]. Was advised they only handle auths for cpt 15079 when its cancer related and [facility][phone][facility] as they stated they handle for gender dysphoria. Called [employer], they do not handle Human cases, they do not have Jaime in there system to be ableto assist me in where to call next, they advised I call Breanne again. Called [employer] back, spoke with Carmela call ref #[id number] who advised [employer] is the correct alliance party to speak with so she got on a conference call with me and [employer] in order to sort this out. At [facility], spoke with Gaby Cosme 01/24/25. She is under the impression I was given false information as to her knowledge, [employer] handles the auth requests regardless of diagnosis code. She messaged her pile driving supervisor and confirmed this is correct. However, while trying to start auth request, ran into a few problems. First, is not in their system so she had to submit a ticket to get Mimi entered into their system. The ticket case # for this request is SERVER SECURITY [id number]. Also, they need to get diagnosis code F64.0 entered into their system so had to submit a separate ticket to do that, that pending ticket number is SERVER SECURITY [id number]. Once both of those issues have been resolved, then we can submit a prior auth request. Gaby said she will try her best to call me directly once the tickets have been dealt with, that waywe can start the auth request. However, given they are an inbound call center she's unsure she'll be able to have time to call me. She advised if I do not hear from her in 7 days to call in as I can get the auth request going. documented in this encounter Plan of Treatment Upcoming Encounters Date Type Department Care Team (Late st Contact Info) Description 03/15/2025 3:40 PM EDT Office Visit [facility] Primary Care [address] [place] [phone] Shekhar Daigle MD [address] [facility] Foster. [address] [place] [phone] 03/26/2025 1:30 PM EDT Telemedicine - audio only [facility] Plastic Surgery [address] [place] [phone] Anna Ventura PA-C [address] [place] [phone] 04/08/2025 8:00 AM EDT Pre-Admission Testing Pre Procedure Evaluation [address] [place] [phone] Austin Le MD [address] [place] [address], [address] [address] 04/09/2025 Procedure Pass OR Admitting Dept - Virtual Department [address] [place] [phone] 04/09/2025 11:08 AM EDT Hospital Encounter OR Admitting Dept - Virtual Department [address] [place] [phone] Austin Le MD [address] [place] [phone] 04/09/2025 11:08 AM EDT - 04/09/2025 2:46 PM EDT Surgery OR Admitting Dept - Virtual Department [address] [place] [address] Austin Le MD [address] [place] [phone] MASTECTOMY 04/15/2025 1:00 PM EDT Office Visit [facility] Plastic Surgery [address] [place] [address] Austin Le MD [address] [place] [phone] 04/23/2025 1:30 PM EDT Office Visit [facility] Plastic Surgery [address] [place] [phone] Anna Ventura PA-C [address] [place] [phone] 07/30/2025 1:40 PM EST Office Visit [facility] Primary Care [address] [facility] [address] [place] [address] Shekhar Daigle MD [address] [place] [address] 02/04/2026 3:00 PM EDT Office Visit [facility] Primary Care [address] [facility] [address] [place] [address] Karin Cruz MD, MPH [address] [place] [address] Shekhar Daigle MD [address] [place] [phone] Scheduled Procedures Name Priority Associated Diagnoses Date/Ti me MASTECTOMY gender dysphoria 04/09/2025 11:08 AM EDT RECONSTRUCTION NIPPLE AREOLA gender dysphoria 04/09/2025 11:08 AM EDT documented as of this encounter Visit Diagnoses Not on filedocumented in this encounter Additional Health Concerns Assessment Noted Time PHQ-2 Depression Total Score: 0 10/18/19 10:58 AM EDT documented as of this encounter Care Teams Shim Plug Cutter Relationship Specialty Start Date End Date Karin Cruz MD, MPH [address] [place] [phone] [email or web address] PCP - General Family Medicine 03/21/20 02/07/25 Shekhar Daigle MD [address] [place] [phone] PCP - General Family Medicine 02/08/25 documented as of this encounter Additional Source Comments The information contained in this document represents components of the legal health record. It is not the complete legal health record.[facility]
[2025-03-13 10:20] VITALS: BP 121/76; PULSE 75; RESP 18; TEMP 36.4; O2SAT 97
--- NOTE | 2025-03-13 10:20 | ED_ITS ---
HPI - General Adult General Chief complaint: Abdominal Pain Stated complaint: ABD PAIN,PATE PER EMS Time Seen by Provider: 03/13/25 09:04 Source: patient, EMS, RN notes reviewed and old records reviewed Mode of arrival: EMS Limitations: no limitations History of Present Illness ED Provider: Milton Bhardwaj PA-C HPI narrative: 34-year-old transgender FTM on testosterone, uterine fibroids, PTSD, schizoaffective, migraines presents to the ED due to headache and abdominal pain. Patient states they had terrible migraine approximately 2 weeks ago and took ?a bunch of aspirin? (unable to quantify how many they took or the size of the bottle) for pain management of migraine. Patient states they have chronic abdominal pain due to uterine fibroids, and this right sided abdominal pain feels similar, however they are worried large amount of aspirin may be causing abd pain. Patient states this morning they woke up with migraine headache experiencing some light auras this morning. Patient also reports some nausea this morning, however states that this is probably due to being hungry since they did not eat this morning. Patient states they have a appointment with their PCP in 2 days on Tuesday03/15/25 for follow up. Denies chest pain, shortness of breath, vomiting, diarrhea, dark/tarry stool, lightheadedness, syncope, fever, chills MD complaint: abd pain, nausea, headache Related Data Previous Rx's ?Medication ?Instructions ?Recorded testosterone cypionate 200 mg/mL 80 mg (0.4 mL) subcut QWEEK 7 days 02/09/24 intramuscular oil #0.4 mL cariprazine 4.5 mg capsule 4.5 mg PO DAILY 30 days #30 caps 02/17/24 lidocaine 4 % topical patch 1 patch transdermal DAILY PRN 02/17/24 (Lidocaine Pain Relief) lower back pain 30 days #30 ea ondansetron HCl 4 mg tablet 4 mg PO Q8H PRN nausea and 02/17/24 vomiting 14 days #30 tabs cefuroxime axetil 250 mg tablet 250 mg PO BID 7 days # 14 tabs 08/07/24 phenazopyridine 200 mg tablet 200 mg PO TID PRN pain 6 doses #6 08/07/24 (Pyridium) tabs Allergies Allergy/AdvReac Type Severity Reaction Status Date / Time tree nut (TREE NUT) Allergy Severe Difficulty Verified 03/13/25 09:07 Breathing iodine (IODINE) Allergy Unknown Itching Verified 03/13/25 09:07 shellfish derived (SHELLFISH Allergy Unknown Hives Verified 03/13/25 09:07 DERIVED) trazodone Allergy Unknown Verified 03/13/25 09:07 Review of Systems 2 Review of Systems: CONST: Negative for fever, body aches and chills. HENT: Negative for neck pain/stiffness, headache, congestion, sore throat, swelling. EYES: Negative for discharge/pain or vision changes. RESP: Negative for cough/hemoptysis and shortness of breath. CV: Negative chest pain, difficulty breathing, palpitations. ABD: Negative pain, nausea, vomiting. : Negative increase frequency, dysuria, blood in urine or stool. MUSC: Negative for muscle aches, edema. SKIN: Negative rash, lesions/sores. NEURO: Negative headache, dizziness, weakness. [facility] Past Medical History Medical History PTSD (post-traumatic stress disorder) [place] lesion of left shoulder Surgical History Hx of colonoscopy Social History Social History Household Members: None Housing: Apartment Are you a primary child care associate teacher to a significant other at home: No Do you presently have visiting nurse or other home services: No Unable to assess alcohol history related to: Unknown Alcohol intake: current Alcohol intake frequency: holidays/special occasions only Patient Tobacco Use Status: Current everyday Tobacco user Tobacco use type: Cigar Cigarettes Per Day: 4 Years Smoked: Pt unsure Smoked in Last 30 Days: Yes e-Cigarette/Vaping Use: Never Used Second Hand Smoke Exposure: No Use of substances other than those prescribed or required for medical reasons: No Substance Use Type: Former Substance User Advance Directives: No Advance Directives Information Provided: Yes Do you have a plan to hurt others: No Plan Patient : No service: No Current occupational status: employed Current occupation: [employer] Sexual orientation: Not collected Physical Exam ED Vital Signs: Vital Signs - 24 hr 03/13/25 09:04 03/13/25 09:08 03/13/25 10:20 Temperature 98.4 F 98.4 F 97.6 F Pulse Rate 64 64 75 Respiratory Rate 17 17 18 Blood Pressure 117/69 117/69 121/76 Pulse Oximetry 97 97 97 Oxygen Delivery Method Room Air Room Air Room Air BMI result Body Mass Index 33.3 GENERAL APPEARANCE: ?AxOx4, generally well-appearing, no acute distress. HEENT: ?NC, AT. MMM. EOMI, clear conjunctiva, oropharynx clear. NECK: ?Supple without lymphadenopathy.? No stiffness or restricted ROM. HEART:? Normal rate and regular rhythm, normal S1/S2, no m/r/g LUNGS:? CTAB, moving air well. No crackles or wheezes are heard. ABDOMEN: ?Soft, nondistended, no rigidity, mild tenderness of right periumbilical area, negative Weir's sign, no rebound tenderness BACK: No CVAT, no obvious deformity. EXTREMITIES: ?Without cyanosis, clubbing or edema. NEUROLOGICAL: ?Grossly nonfocal. Alert and oriented, moving all 4 extremities. Observed to ambulate with normal gait. Skin: ?Warm and dry without any rash. Medications Administered Discontinued Medications Generic Name Dose Route Start Last Admin Trade Name Freq PRN Reason Stop Dose Admin Diphenhydramine HCl 25 mg 03/13/25 10:21 03/13/25 10:54 Diphenhydramine Hcl 50 Mg/Ml Vial IVPUSH 03/13/25 10:22 25 mg ONCE ONE Administration Lactated Ringer's 1,000 mls @ 999 mls/hr 03/13/25 10:21 03/13/25 10:58 Lr IV 03/13/25 11:21 999 mls/hr .Q1H1M ONE Administration Metoclopramide HCl 10 mg 03/13/25 10:21 03/13/25 10:54 Metoclopramide Hcl 10 Mg/2 Ml Vial IVPUSH 03/13/25 10:22 10 mg ONCE ONE Administration Medical Decision Making Medical Decision Making MDM Narrative: 34-year-old transgender FTM on testosterone, uterine fibroids, PTSD, schizoaffective, migraines presents to the ED due to headache and abdominal pain. Patient states they had terrible migraine approximately 2 weeks ago and took ?a bunch of aspirin? (unable to quantify how many they took or the size of the bottle) for pain management of migraine, and vomited 1 hour after ingestion. Patient states they have chronic abdominal pain due to uterine fibroids, and this right sided abdominal pain feels similar, however they are worried large amount of aspirin may be causing abd pain. Patient states this morning they woke up with migraine headache experiencing some light auras this morning. Patient also reports some nausea this morning, however states that this is probably due to being hungry since they did not eat this morning. Patient states they have a appointment with their PCP in 2 days on Tuesday03/15/25 for follow up. VS on initial observation-BP 121/76, pulse rate 75, respiratory rate of 18, afebrile with oral temp of 97.6?, O2 saturation 97% on room air. On physical exam there is mild diffuse tenderness of the right side periumbilical area. Labs reveal mild leukopenia 4.1, H and H stable, no electrolyte abnormalities, lipase WNL, beta HCG <2, UA negative for blood/infection, salicylates at 5.0- less likely acute abdomen, ectopic , UTI, salicylate overdose Patient afebrile, hemodynamically stable, no adnexal tenderness on physical exam, patient able to ambulate without pain, is moving around in stretcher without pain- less likely ovarian torsion/TOA Patient medicated with IV fluids, 10mg reglan, 25mg diphenhydramine with good effect on nausea, headache. At this time I believe nausea and vomiting is associated with migraine headache with aura that they were experiencing earlier today. Patient has follow up with her PCP in 2 days, I counseled them to discuss the uterine fibroids and abdominal pain during their appointment. Patient feels comfortable to discharge home for self-care. Differential Diagnosis Differential Diagnoses: The differential diagnosis associated with the presentation includes Acute abdomen Ectopic Ovarian torsion Salicylate overdose TOA Migraine Uterine fibroids Admission/Observation Consideration of admission/observation: Escalation of care including admission/observation considered Lab Data MDM Lab Attestation statement: I reviewed the patient's lab results. 03/13/25 10:34 03/13/25 10:34 Labs: Lab Results 03/13/25 03/13/25 Range/Units 09:23 10:34 WBC 4.1 L (4.8-10.8) X10*3/uL RBC 5.10 (4.20-5.50) X10*6/uL Hgb 16.1 H (12.0-16.0) g/dl Hct 47.4 H (37.0-47.0) % MCV 92.9 (80.0-98.0) fL MCH 31.6 (27.0-33.0) pg MCHC 34.0 (31.0-35.0) g/dl RDW 12.8 (11.0-16.0) % Plt Count 285 (160-400) X10*3/uL MPV 9.5 (9.4-12.3) fL Immature Gran % (Auto) 0.2 (0.0-0.4) % Neut % (Auto) 43.4 L (45-73) % Lymph % (Auto) 46.6 H (20-40) % [place] % (Auto) 6.6 (2-11) % Eos % (Auto) 2.7 (0-4) % Baso % (Auto) 0.5 (0-2) % Lymph # (Auto) 1.9 (1.2-4.9) X10*3/uL [place] # (Auto) 0.3 (0.1-1.2) X10*3/uL Eos # (Auto) 0.1 (0.0-0.4) X10*3/uL Baso # (Auto) 0.0 (0.0-0.2) X10*3/uL Abs Immat Gran (auto) 0.01 (0.00-0.03) X10*3/uL Absolute Neuts (auto) 1.8 L (2.0-8.3) x10*3/uL Absolute Nucleated RBC 0.000 (0.0-0.012) X10*3/uL Nucleated RBC % (auto) 0.0 (0.0-0.2) /100WBC Sodium 136 (135-145) mmol/L Potassium 5.0 D (3.3-5.1) mmol/L Chloride 102 (96-108) mmol/L Carbon Dioxide 30 H (22-29) mmol/L Anion Gap 9 L (12-20) BUN 8 L (9-16) mg/dL Creatinine 1.25 (0.5-1.4) mg/dL Estim Creat Clear Calc 73.8 Estimated GFR 49 Random Glucose 92 (60-115) mg/dL Calcium 9.4 (8.4-10.2) mg/dL Magnesium 1.9 (1.6-2.6) mg/dL Total Bilirubin 0.7 (0.0-1.0) mg/dL AST 31 (5-31) U/L ALT 25 (0-31) U/L Alkaline Phosphatase 60 (39-117) U/L Total Protein 7.4 (6.5-8.0) g/dL Albumin 4.5 (3.5-5.0) g/dL Lipase 11 (8-78) U/L Beta HCG, Quant < 2 mIU/mL Urine Color Yellow Urine Appearance Clear Urine pH 7.5 (5.0-9.0) Ur Specific [place] 1.010 (1.005-1.025) Urine Protein Negative (Neg-Trace) mg/dL Urine Glucose (UA) Negative (Negative) mg/dL Urine Ketones Negative (Negative) mg/dL Urine Blood Negative (Negative) Urine Nitrite Negative (Negative) Ur Leukocyte Esterase Small (1+) H (Negative) Urine RBC 0-2 (0-2) /HPF Urine WBC 0-5 (0-5) /HPF Ur Squamous Epith Cells 0-2 (0-2) /HPF Urine Bacteria None Seen (None Seen) Hyaline Casts 0-2 (0-2) /LPF Salicylates < 5.0 L (15-30) mg/dL Acetaminophen < 3 (<30) mcg/mL External Record Review External record reviewed: Inpatient record, Office record and Outpatient record Chronic Conditions Patient?s care impacted by: Other (uterine fibroids, PTSD, schizoaffective) Discharge Plan Discharge Clinical Impression: Migraine Patient Disposition: Home, Self-Care Instructions: Migraine Headache (ED) Additional Instructions: You were evaluated in the ED today due to migraine headache, nausea, abdominal pain. Your blood work was negative for any emergent processes, your urine was negative for blood or infection. You were medicated in the department with IV fluids, Reglan, Benadryl with good effect for nausea, migraine. You stated you have appointment this Tuesday with PCP, I recommend you keep this appointment and discuss concerns of uterine fibroids and abdominal pain with your provider. Please return to the emergency department if you experience worsening abdominal pain, worsening vomiting, worsening nausea, blood in the vomit, blood in the stool, dizziness, lightheadedness, fevers over 100.4?, or any new/worsening/concerning symptoms. Prescriptions: No Action testosterone cypionate 200 mg/mL oil 80 mg subcut QWEEK 7 Days Qty: 0.4 2RF cariprazine 4.5 mg capsule 4.5 mg PO DAILY 30 Days Qty: 30 1RF lidocaine [Lidocaine Pain Relief] 4 % Adhesive Patch,Medicated 1 patch transdermal DAILY PRN (Reason: lower back pain) 30 Days Qty: 30 1RF Protocol: Apply to: Apply to: Right Lower Back Rx Instructions: apply to lower back daily as needed ondansetron HCl 4 mg tablet 4 mg PO Q8H PRN (Reason: nausea and vomiting) 14 Days Qty: 30 0RF cefuroxime axetil 250 mg tablet 250 mg PO BID 7 Days Qty: 14 0RF phenazopyridine [Pyridium] 200 mg tablet 200 mg PO TID PRN (Reason: pain) Qty: 6 0RF Stand Alone Forms: Work/School Release Print Language: R[place]
[2025-03-13 10:42] LABS: MANUAL DIFF FLAG NO
[2025-03-13 10:50] LABS: Hematocrit 47.4 % (37.0-47.0); Hemoglobin 16.1 g/dl (12.0-16.0); Imm Gran Abs Auto 0.01 X10*3/uL (0.00-0.03); Imm Gran Pct Auto 0.2 % (0.0-0.4); Lymphocytes Absolute Auto 1.9 X10*3/uL (1.2-4.9); Mean Corpuscular HGB Conc 34.0 g/dl (31.0-35.0); Mean Corpuscular Hemoglobin 31.6 pg (27.0-33.0); Mean Corpuscular Volume 92.9 fL (80.0-98.0); NRBC Abs Auto 0.000 X10*3/uL (0.0-0.012); NRBC Pct Auto 0.0 /100WBC (0.0-0.2); Platelet Count 285 X10*3/uL (160-400); Red Blood Count 5.10 X10*6/uL (4.20-5.50); White Blood Count 4.1 X10*3/uL (4.8-10.8)
[2025-03-13] MEDS: Lactated Ringers 1,000 ML 999 ML IV (10:58)
[2025-03-13 11:04] LABS: Alanine Aminotransferase 25 U/L (0-31); Albumin Level 4.5 g/dL (3.5-5.0); Alkaline Phosphatase 60 U/L (39-117); Anion Gap 9 (12-20); Aspartate Amino Transferase 31 U/L (5-31); Blood Urea Nitrogen 8 mg/dL (9-16); Calcium 9.4 mg/dL (8.4-10.2); Carbon Dioxide 30 mmol/L (22-29); Chloride 102 mmol/L (96-108); Creatinine Clr Calc Pharmacy 73.8; Estimated Glomerular Filt Rate 49; Lipase 11 U/L (8-78); Magnesium 1.9 mg/dL (1.6-2.6); Potassium 5.0 mmol/L (3.3-5.1); Sodium 136 mmol/L (135-145); Total Protein 7.4 g/dL (6.5-8.0)
[2025-03-13 11:08] LABS: Acetaminophen LAB < 3 mcg/mL (<30); Salicylate < 5.0 mg/dL (15-30)
[2025-03-13 12:00] VITALS: BP 131/71; PULSE 65; RESP 18; TEMP 36.8; O2SAT 100
--- NOTE | 2025-03-13 12:26 | PC.NURSE ---
Phone call received from Pt Mother (Yamile) requesting information re: her child. Pt sleeping at time of phone call and this RN unable to obtain consent from Pt to share medical information. Privacy law obligation explained to Yamile and advised that when Pt is awake, will obtain consent and call back if granted. Call back number verified. At this time ([phone]) Pt is up for d/c. This RN advises Pt to contact his mother to update her, if so desired.
[2025-03-13 12:33] VITALS: BP 131/71; PULSE 65; RESP 18; TEMP 36.8; O2SAT 100
== END 2025-03-13 12:33 | disposition home or self-care (01) ==
PROVIDERS: Emergency Provider Emergency Medicine
DX: G43.909 Migraine, unspecified, not intractable, without status migrainosus (principal); R10.9 Unspecified abdominal pain; R11.0 Nausea; F43.10 Post-traumatic stress disorder, unspecified; F25.9 Schizoaffective disorder, unspecified; F64.0 Transsexualism; F17.200 Nicotine dependence, unspecified, uncomplicated
CPT/HCPCS: 36415; 80053; 80143; 80179; 81001; 83690; 83735; 84702; 85025; 87086; 96361; 96374; 96375; 99284; J1200; J2765; J7120